=== PATIENT | female | born 1945 | race Caucasian/White ===

== ENCOUNTER 2016-07-22 08:10 | Inpatient (IN) | payer MEDICARE, OTHER ==
[~2016-07-22] VITALS: Ht 157.5 cm; Wt 72.7 kg
[~2016-07-22 08:10] MED LIST: NOMED
[2016-07-22 08:16] VITALS: BP 175/86; PULSE 90; RESP 16; O2SAT 99
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
[2016-07-22 09:46] LABS: BASOPHILS % (AUTO) 0.4 % (0-3); EOSINOPHILS % (AUTO) 0.4 % (0-5); MONOCYTES % (AUTO) 5.4 % (4-12); Mean Corpuscular Hemoglobin 32.5 pg (27.0-35.0); Mean Corpuscular Volume 98.6 fL (81-100); Platelet Count 219 bil/L (150-400)
[2016-07-22 11:53] VITALS: BP 148/77; PULSE 84; RESP 14; O2SAT 99
[2016-07-22] MEDS ORDERED: BENZ-12 PO (12:07)
[2016-07-22] MEDS ORDERED: ACET-2605 PO (12:07)
[2016-07-22] MEDS ORDERED: IPRA0.2S51 IH (12:07)
[2016-07-22] MEDS ORDERED: PRAV20TA2 PO (12:07)
[2016-07-22] MEDS ORDERED: BECL8.7A5 INHALATION (12:07)
[2016-07-22] MEDS ORDERED: FLUO20CA25 PO (12:07)
[2016-07-22] MEDS ORDERED: CHOL200047 PO (12:07)
[2016-07-22] MEDS ORDERED: MELA5TAB14 PO (12:07)
[2016-07-22] MEDS ORDERED: LISI-571 PO (12:07)
[2016-07-22] MEDS ORDERED: ALBU2.5V4 INHALATION (12:07)
[2016-07-22] MEDS ORDERED: LAMO200T2 PO (12:07)
[2016-07-22] MEDS ORDERED: LORA0.5T PO (12:08)
[2016-07-22] MEDS ORDERED: Magnesium Hydroxide 10 mL Oral Concentration PO PRN (13:40)
[2016-07-22] MEDS ORDERED: Alum-Mag Hydrox-Simeth 30 mL Suspension PO PRN (13:40)
[2016-07-22] MEDS: LORazepam 0.5 mg Tablet PO PRN (15:28)
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
[2016-07-22] MEDS ORDERED: Ipratropium 0.02% 0.5 mg/2.5 mL Inhalation Solution NEB PRN (18:30)
[2016-07-22] MEDS: diphenhydrAMINE 25 mg Capsule PO SCH (20:54)
[2016-07-23] MEDS: hydrOXYzine Pamoate 25 mg Capsule PO PRN ×2 (00:53→21:09)
[2016-07-23] MEDS: diphenhydrAMINE 25 mg Capsule PO PRN ×2 (02:42→03:56)
--- NOTE | 2016-07-23 03:21 | NUR ---
Nursing Noc Pt up and and wandering this Noc appeared to have difficulty finding her room. Facial expression with strained anxious appearance. Accepted PRN for sleep after ambulating around unit checking doors reporting it was time to go. After much rediretion patient finally noted to fall asleep. Continuing to monitor sleep times, q15 minute safety checks, mood, behavior, emotional state. CP
--- NOTE | 2016-07-23 05:33 | NUR ---
Pt isolated to room much of evening. She did come out later in the night trying to leave/find her room. Very confused and not oriented to place or time. At one point said she was looking for the guys that were going to take her into the [place]. Pt slept little being up and down through the night. Pt observed every 15 minutes as ordered.
[2016-07-23] MEDS: lamoTRIgine 100 mg Tablet PO SCH (09:08)
[2016-07-23] MEDS ORDERED: Magnesium Hydroxide 10 mL Oral Concentration PO PRN ×2 (13:35)
[2016-07-23] MEDS ORDERED: Alum-Mag Hydrox-Simeth 30 mL Suspension PO PRN (13:35)
[2016-07-23] MEDS ORDERED: LORazepam 0.5 mg Tablet PO PRN (13:40)
[2016-07-23] MEDS ORDERED: _Albuterol 2.5 mg/3 mL Neb NEB PRN (13:40)
--- NOTE | 2016-07-23 14:25 | HP ---
[address] [address] HISTORY AND PHYSICAL PATIENT: REBECCA EDWARDS : 1945 MR#: [id number] ADMIT: 07/22/2016 JOB ID: [id number] IDENTIFICATION: The patient is a 71-year-old white female, currently to Nate. 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 REASON FOR ADMISSION: Client brought to the [facility] after found her in a car trying to stab herself with a suicide attempt. HISTORY OF PRESENT ILLNESS: The patient presents for evaluation and treatment of suicidal ideation. I met with her for a 60-minute evaluation and reviewed course and records kept by [facility], especially a history done by nurse practitioner Haven Cabezas in 2007, as well as chart notes by Dr. Agustin, who is her primary care physician at [facility]. Her main issue is depression. Co-occurring issues are cognitive delay and poor coping. Her depression is chronic and she has been struggling with this for over 40 years. However, her stated that she had been relatively well managed until after when he had health problems. He had to be flown to [facility] and ever since then he said she has had a downhill spiral with multiple symptoms of depression; poor sleep, mood, interest, high guilt, and now an obsessive self deprecation and focus on and dying. She is focused on some infidelities that happened almost four decades ago. The suicidal ideation is acute and it has only been present for the past four days and is currently at a severe intensity. All the above are made worse with changes in her environment or when she gets ill. She states she has been taking her medication, Prozac, regularly and this is at 40 mg a day. She was a poor historian primarily due to severe emotional liability, marked cognitive deficits, and a severe impairment in judgment and coping. She is unable to participate in any meaningful manner in a psychiatric review of systems or physical review of systems. She could basically just shake her head and state that "I wish I was not on this earth. I wish I could just ." When referring to the suicide attempt by knife, she said "I just did not stick it in deep enough." PAST HISTORY: MEDICATIONS: 1. Prozac 40 daily, unknown duration of trial. 2. Albuterol. 3. Lisinopril 5 daily. 4. Ativan 0.5 b.i.d. 5. Melatonin 5 mg h.s. 6. 200 daily. 7. Pravastatin 20 daily. ALLERGIES: SULFA. ILLNESSES: Osteoarthritis, asthma, COPD. FAMILY MEDICAL HISTORY: The family has a history positive for disease, osteoarthritis, kidney dysfunction, and hyperlipidemia. PAST PSYCHIATRIC HISTORY: The client was admitted and diagnosed with bipolar disease in 2007. Prior to that had been diagnosed with major depressive disorders. In the chart note there are references to psychiatric hospitalizations in the s and again in 1989 at [facility]. She had a manic episode at the hospital there and was transferred to the psych decker. At that point, she decompensated with auditory hallucinations and features of depression with catatonia. She retrieved treatment at [facility]. She was treated for 10 years in the past and has used lithium, Zoloft, Anafranil, Prozac, and Stelazine. Her kidney function is compromised and she no longer can take lithium. In the past she has been a good historian. At the present she is a very poor historian and unable to participate my evaluation. They also suffered the recent loss of their 40-year-old son, who from metastatic cancer. SOCIAL HISTORY: Client and her for 41 years. They live on [address]. The patient grew up in [place], [place]. She reports good academia throughout elementary School. Ages [age] were notable for early-onset anxiety. She describes herself as a loner who socialized very little. She experienced early onset depression at 18. She completed K through 12. 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 She was able to develop satisfying relationships with partners. DRUG AND ALCOHOL: Client denies. LETHALITY: Positive suicidal ideation with recent suicide attempt. RELATIONSHIP HISTORY: 41 years. LEGAL HISTORY: None. PHYSICAL EXAMINATION: Reviewed and essentially normal from our ER. Vital signs 148/77, pulse 100, respirations 14, afebrile. Neuro: Normal gait. Balance steady. MENTAL STATUS EXAMINATION: Client neatly dressed, with good eye contact. Her behavior was restless. Her attitude was guarded and withholding. Mood was extremely dysphoric. Affect was congruent with high intensity. Thought process: Client is unable to relate a coherent history. She did not appear to be responding to internal stimuli but was highly perseverative in her focus on self-deprecation and the need for atonement. Thought content: Ruminating on infidelities of 40 years ago. Currently has suicidal ideation but no specific plan. The client is only oriented to person and place. Memory was short, immediate, and impaired. Attention and concentration was impaired. Insight and judgment markedly impaired. Impulse control: Client is unable to handle impulses of guilt. Reality testing is impaired. Competence to handle current stressors is currently being overwhelmed. LABORATORY DATA: UDS negative. Liver, electrolytes, and thyroid normal except for creatinine of 2.2; this is a longstanding issue. CBC normal. IMPRESSION: The patient is a 71-year-old white female with an over 40-year history of depression. Over the past month she has had several stressors relating to the illness of her who is her primary support and caregiver. As a result, she has had a relatively steady decline with increased depression culminating in suicidal ideation, recent suicide attempt, and cognitive impairment. She currently was only on Prozac. She is having multiple symptoms of depression related to mood, sleep, interest, guilt, energy, concentration, anhedonia, and now suicidal ideation. Client was only minimally able to participate in my evaluation today. Much of my information has come from a chart review. DIAGNOSIS: [place] I: 1. Major depressive disorder, severe, with psychosis. 2. Rule out bipolar one disorder, depressed with psychotic features. 3. Rule out dementia. [place] II: Deferred. [place] III: Osteoarthritis, asthma, chronic obstructive pulmonary disease. [place] IV: Moderate. [place] V: Global Assessment of Functioning equal to 30. PLAN: Recommend client be admitted to our unit and be provided with a high degree of safety through the structure and active adult engagement she receives here. Will have her participate in one-to-one unit and group activities focused on improving coping skills and coming up with a safety plan should suicidal ideation return as an outpatient. We will have client continue on Prozac 40 mg daily and melatonin 5 mg h.s. Will also continue Lamictal at :00 daily. Anticipate a 5-7 day stay.
[2016-07-23 14:26] VITALS: BP 118/76; PULSE 110; RESP 16
[2016-07-23] MEDS: LORazepam 0.5 mg Tablet PO PRN (15:07)
[2016-07-23] MEDS ORDERED: Ipratropium 0.02% 0.5 mg/2.5 mL Inhalation Solution NEB SCH (16:30)
--- NOTE | 2016-07-23 17:51 | NUR ---
Fall Patient in dining room @ 1656 fell to the ground, hitting her head on the wall below the window. Patient said, "the chair moved". No redness/abrasion found. Patient denied other injuries or pain. Patient escorted back to her room and nearly tripped on bed corner and as she walked around the bed, almost tripped on the other bed corner. Patient too dysfunctional since admission to follow directions. Dr Campa/Lola notified. Patient moved so the sitter can watch patients in both rooms (230/231).
--- NOTE | 2016-07-23 17:51 | NUR ---
Nursing Notes [id number] S: O: Very little verbalization from patient, even with prompting-patient will look through you and attempt to walk away. Patient isolating in room most of day. Patient appears tense and stiff. No interaction with peers noted. Patient refused breakfast and lunch today, intake consisted of 2-3 cups of juice. Patient hesitant to take medications, will take with persistence. Speech is clear but minimal. A: Flat affect, appears stiff and almost frozen at times. P: Monitor for safety and response to treatment. Follow plan of care. Follow Addendum: 07/23/16 at 175 by EUGENIA MCKINLEY RN PRNS Ativan 0.5 mg po at 1500 for anxiety-pt unable to rate. Effective, patient appears less anxious. Addendum: 07/23/16 at 1751 by EUGENIA MCKINLEY RN Note: Spouse came to visit this evening. Reported that he was in the hospital in [place] for 3 days earlier this month. Soon after returning home, Roma's nurse practitioner let Roma increase use of her inhalers (for her COPD). Within a couple of days-patients decompensation became more and more apparent. feels his hospitalization or the increase of inhaler use may be contributors to her decompensation. He is unable to think of any other changes. Reports Roma has a very strong extended family support system.
--- NOTE | 2016-07-23 19:49 | NUR ---
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 I'm an alcoholic and a drug user! I lie about everything. I am confused..." O.: met with pt. to complete Psychosocial and Treatment plan and goals. She is vol. She was hospitalized here before in 2007. She is not connected with mental health services at this time. She agreed to go to a private room for a conversation but instead she went to her room and asked story writer to come there. She described her mood as "confused". She said that she felt "manic-depressive". She told story writer that she was a lyer because of "manic-depressive." She had a hard time answering questions. She denied SI/HI, denied depression, denied AH/VH. 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 "I'm waiting for people to come and take me somewhere..." She was in and out of her room but mostly sitting alone and not talking to peers or staff. A.: pt. is isolative, cooperative, confused, paranoid and delusional, looks internally preoccupied. She has an intense stare, flat affect and latent response. P.: monitor behavior, provide safety in the unit, monitor meds intake; follow care plan.
[2016-07-23] MEDS: diphenhydrAMINE 25 mg Capsule PO SCH (21:09)
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
--- NOTE | 2016-07-24 04:29 | NUR ---
Nursing Noc Pt appears confused with poor insight. Responses noted to staff members when no question asked and blanket type responses noted when asked a question. Patient is directable but appears to forget what was asked of her almost instantly. Appears to become anxious by black haired people. Light on in room during sleep which appears to help with patient confusion and anxiety. Continue to monitor with sitter outside of room, mood, behavior, emotional state and sleep times. CP.
[2016-07-24] MEDS: lamoTRIgine 100 mg Tablet PO SCH (08:24)
[2016-07-24] MEDS: hydrOXYzine Pamoate 25 mg Capsule PO PRN (09:17)
--- NOTE | 2016-07-24 12:02 | NUR ---
DAYS 7-7 S/O- Patient appears withdrawn with flat effect, does not answer questions, but reads out loud form group handout of today repeatedly. Reported ground level fall today in hallway with nurse and aid. Patient at time looks frightened and wary of staff and other patients. A- Patient put in wheelchair for ambulation, no injury in fall, 1:1 sitter due to falls risk. Calm, clear directions, try to reduce anxiety. Patient informed that will visit today. P- Provide safe environment, falls risk, possible change in medications, follow care plan. Addendum: 07/24/16 at 1728 by NEGRITA MULLINS RN VOIDING P-Patient to nurse and staff knowledge has not voided today. 07/22 Cr 2.2, BUN 30. I- Patient changed new pull up applied, patient was dry. E- If patient has voided she has not voided much today, will pass along information to next shift, and monitor.
[2016-07-24] MEDS: risperiDONE 1 mg Tablet PO SCH ×2 (12:40→21:19)
--- NOTE | 2016-07-24 12:41 | PCM.PNPSY ---
Subjective Date of Service Jul 24, 2016 Subjective I spent 30 minutes both reviewing treatment plan and providing supportive/ educational psychotherapy. I spent less than 50% of the time counseling the patient as Roma was highly agitated and non-communicative today. Roma not responding to my questions about thought organization and mood stability. Staff reports that she has been extremely fearful, pacing the unit checking doors to see if they will open, talking about things that happened 40 in 50 years ago in a self-deprecatory manner. She has not been able to participate well in one-to-one unit for group activities. She slept 1.5 hours. She denies medication side effects. Patient was not able to identify her medications nor what they were used to treat. She did not appear to understand the need for medications . Current Medications Current Medications Acetaminophen 325 mg HS PO Last administered on 07/23/16 21:09; Admin Dose 325 MG; Start 07/22/16 at 21:00 Cholecalciferol 2,000 unit DAILY PO Last administered on 07/24/16 08:25; Admin Dose 2,000 UNIT; Start 07/23/16 at 08:30 Diphenhydramine HCl 25 mg HS PO Last administered on 07/23/16 21:09; Admin Dose 25 MG; Start 07/22/16 at 21:00 Fluoxetine HCl 40 mg DAILY PO Last administered on 07/24/16 08:24; Admin Dose 40 MG; Start 07/23/16 at 08:30 Hydroxyzine Pamoate 50 mg Q4H PRN PO Last administered on 07/24/16 09:17; Admin Dose 50 MG; Start 07/22/16 at 13:40 Lamotrigine 200 mg DAILY PO Last administered on 07/24/16 08:24; Admin Dose 200 MG; Start 07/23/16 at 08:30 Lisinopril 5 mg HS PO Last administered on 07/23/16 21:09; Admin Dose 5 MG; Start 07/22/16 at 21:00 Lorazepam 0.5 mg Q4H PRN PO Last administered on 07/23/16 15:07; Admin Dose 0.5 MG; Start 07/22/16 at 13:45 Melatonin 5 mg HS PO Last administered on 07/23/16 21:09; Admin Dose 5 MG; Start 07/22/16 at 21:00 Pravastatin Sodium 20 mg HS PO Last administered on 07/23/16t 21:09; Admin Dose 20 MG; Start 07/22/16 at 21:00 Mental Status Exam Appearance: Unkept Attitude: Guarded Behavior: Overtly anxious, Distractible Affect: Restricted, Flat Mood: Dysthymic, Anxious, Fearful Thought Process/Associations: Circumstantial Speech Production: Muter Thought Content: Negativistic, Perseveration Danger to Self/Suicidal Ideati: Passive Danger to Others: None Delusions: Paranoid (Endorses) Consciousness: Hyper-vigilant Orientation: Unable to assess Memory: Untestable Attention/Concentration & Cogn: Unable to assess Insight: Limited Judgement: Limited Result Diagram: 07/22/1693107/22/16931 Mental Health Plan The patient is a 71-year-old white female with an over 40-year history of depression. Over the past month she has had several stressors relating to the illness of her who is her primary support and caregiver. As a result, she has had a relatively steady decline with increased depression culminating in suicidal ideation, recent suicide attempt, and cognitive impairment. She currently was only on Prozac. She is having multiple symptoms of depression related to mood, sleep, interest, guilt, energy, concentration, anhedonia, and now suicidal ideation. Client was again only minimally able to participate in my evaluation. Much of my information has come from a chart review. Today client showed more symptoms of psychosis and catatonia. Will decrease Prozac and add low-dose Risperdal and Klonopin in hopes Of stabilizing mood and decreasing delusional thought. I do not believe patient is a good tess voluntary. I am ordering a [facility] Evaluation for potential court ordered treatment. [place] I: 1. Major depressive disorder, severe, with psychosis. 2. Rule out bipolar one disorder, depressed with psychotic features. 3. Rule out dementia. [place] II: Deferred. [place] III: Osteoarthritis, asthma, chronic obstructive pulmonary disease. [place] IV: Moderate. [place] V: Global Assessment of Functioning equal to 30. Medications Program Treatments Patient is being provided with a high degree of safety through the structure and active adult engagement. We will focus on developing improved coping skills and identifying stressors that may have led to current episode. We will attempt to: Integrate into therapeutic groups, milieu and individual therapy. Maintain in a closely monitored and structured unit Provide low-stimulation environment Obtain collateral data to assist in treatment planning Assess degree of lability of affect and impulse control Complete safety plan Decrease frequency of relapse and need for re-hospitalization Denies thoughts of harm to self and/or others Establish a consistent sleep pattern Medication effective in stabilization of mood and/or thought process Reduce the risk of imminent harm to self and/or others by providing a safe environment Tolerates medication without side effects Patient will be on the following psychiatric medications: Decrease Prozac to 30 mg daily Add Risperdal 0.5 mg twice a day Add Klonopin 0.25 mg twice a day and 1 mg at bedtime Address patient's legal status Patient is currently voluntary but I do not believe she is a good tess voluntary. She is attempting To check doors and reports to me that she does not want to be here. I am requesting a state [facility] by mouth valve for potential involuntary nursing home Disposition: Anticipate another 5-7 days to stabilize Peter Campa MD Jul 24, 2016 12:40
[2016-07-24 17:15] VITALS: BP 78/52; PULSE 101; RESP 16
--- NOTE | 2016-07-24 17:31 | NUR ---
Trouble Shooter./ c.m. S./O.: pt. couldn't participate in a conversation. She was difficult to redirect. DCR was called and pt. was detained today as GD and DTO. She is on 72 hrs hold right now. Section Crew[employer] Activities Clerk met with pt.'s who was very concerned about his 's mental state. was glad that pt. had been detained. said that he would come to court to testify if it is needed. He said that she was able to visit with him for a very short time only and that was very unusual for her. He was concerned about her ability to process things. A.: pt. is confused, unpredictable, disorganized. is very supportive. P.: monitor behavior, provide safety in the unit, encourage pt. to take meds; follow care plan.
--- NOTE | 2016-07-24 18:14 | NUR ---
Obs Dayshift Pt is extremely confused, little to no talking, responding or engaging w/ anyone. Pt has a hard time answering questions if she answers at all. Pt spent much time today in the milieu sitting in a wheelchair. Pt is eating and drinking well, but no out put. Pt has a 1:1, needs cueing for all basic needs. Pt visited today, appeared to be a good visit, little engagement. Calm, blank stares, latent, not tracking, confused, calm. Ok meals, Ok ADL's - needs staff assistance for everything.
[2016-07-24] MEDS: diphenhydrAMINE 25 mg Capsule PO SCH (21:20)
--- NOTE | 2016-07-25 06:46 | NUR ---
Nursing 7p-7a Pt needing 1:1 observation for recent history of falls and impulsive/aggressive behavior towards others. She continues with a blank vacant stare with and no verbal communication. Took her scheduled medication without difficulty. She has remained in direct line of sight of staff. Sleep improved tonight. She has remained asleep since 2344 with no noted distress or awakening through the night. Total sleep over 7 hours.
[2016-07-25] MEDS: lamoTRIgine 100 mg Tablet PO SCH (08:22)
[2016-07-25] MEDS: risperiDONE 1 mg Tablet PO SCH (08:23)
[2016-07-25 08:25] VITALS: BP 97/54; PULSE 96; RESP 16
[2016-07-25 10:21] VITALS: BP 97/54; PULSE 96; RESP 16
--- NOTE | 2016-07-25 12:27 | NUR ---
Mood and activity Pt. appeared very depressed and passive. When she was asked if she was suicidal, she gave a long pause and silence. She then stated in a soft slow voice and downcast eyes, "I'm not thinking about that right now." She was oriented to place, time, and person. Pt. had falls during the weekend. Encouraged physical activity to strengthen LE muscles to prevent future falls. A FWW was delivered to room. Pt. was able to use the FWW to walk to bathroom and dinning room with SBA.
--- NOTE | 2016-07-25 14:32 | NUR ---
Nursing: At 1300, Roma was sitting on a chair at the table eating lunch. She was alert and responsive. Pt talked with commercial real estate underwriter about not eating much because she was not hungry. At 1305, commercial real estate underwriter had just turned to speak with another patient when a "thud' noise was heard. Pt was observed to be on the floor in a partially lying, partially sitting position. Pt denied hitting her head but did rub it on right side and stated "I have a hard head". Pt is wearing non-skid perez socks. No complaints of pain or injury. Assessment: At 1306, pt is alert, able to follow directions. Was assisted to stand and transfer to /. At 1310, vitals signs: BP 73/43, 36.5 - 93 - 16. Pt was assisted to lie in bed following fall. Dr. Crain notified at 1325 pm. An hour later, pt is still resting quietly. Addendum: 07/25/16 at 1718 by GREG SALAS RN Repeat BP in the late afternoon, BP 99/59 and HR 85. Pt. explained she slipped off the dining chair as she bend forward and downward to fix her socks. She denied syncope or fainting before and after the fall. Discussed about fall prevention measures with pt. Reminded pt. to also ask staff for assistance. Bed alarm is on while pt. is in bed. Addendum: 07/25/16 at 1852 by YAEL HALL RN At time of fall, pt's scalp was assessed for any enlarged area when it might have hit floor. No area were tender or with palpable enlarged areas. Pupils checked and they were equal and reactive to light. No further complaints. BP systolic was in 90's later in shift. visited and was attentive.
--- NOTE | 2016-07-25 15:28 | NUR ---
Obs Dayshift Pt is able to form some sentences today, better than yesterday. Still very slow, latent, quiet, confused. Pt conts to have a blank stare at times. Pt not able to do things with out staff assistance or direction. Better eye contact. Poor ADL's, Ok meals 50%+
[2016-07-25 16:30] VITALS: BP 99/59; PULSE 85
--- NOTE | 2016-07-25 17:04 | NUR ---
Hose Turner./ c.m. S.:"I'm depressed..." O.: met with pt. and MD together in pt.'s room. She was in bed. She has 1:1 for safety due to fall risk. She denied HI. SI - "I thought about it 2 days ago." She said that she had AH/VH "last night". She rated depression at 7/10 and anxiety at 8-9/10. She was able to communicate with MD more clear than yesterday but her responses were very slow. She was able to talk about her meds. A.: pt. is isolative, cooperative, latent, has a flat affect. P.: monitor behavior, provide safety in the unit, follow care plan.
--- NOTE | 2016-07-25 20:00 | PCM.PNPSY ---
Subjective Date of Service Jul 25, 2016 Subjective The patient appeared somewhat confused about her medications and treatment and reported that her outpatient provider had cut back her medications and she was concerned about changing any of her medications. She later stated that she was taking lamotrigine 200 mg daily. Since starting clonazepam and risperidone the patient has been more talkative and alert but is also demonstrated hypotension with systolic blood pressure in the 70s with dizziness. She is oriented to July [address] [facility]. Sleep: 6.5+ hours Appetite: "Not so hot." Suicidal and homicidal ideation: Denies current suicidal ideation the last being a few days ago. Last homicidal ideation was last week and a particular target. Auditory hallucinations/Visual hallucinations: The patient reported no auditory or visual hallucinations but stated "I dreamt a whole lot of our family was in the hospital and they chopped my little nephew up." Other Psychotic Symptoms: Aria speech only Anxiety: 8-03/19 Depression: 01/16 Current Medications Current Medications Clonazepam 0.25 mg BID PO Last administered on 07/24/16 12:40; Admin Dose 0.25 MG; Start 07/24/16 at 12:30; Stop 07/24/16 at 20:28; Status DC Clonazepam 0.5 mg 12,16 PO Last administered on 07/25/16 12:20; Admin Dose 0.5 MG; Start 07/25/16 at 12:00; Stop 07/25/16 at 14:55; Status DC Clonazepam 1 mg HS PO Last administered on 07/24/16 21:21; Admin Dose 1 MG; Start 07/24/16 at 21:00; Stop 07/25/16 at 14:51; Status DC Fluoxetine HCl 30 mg DAILY PO Last administered on 07/25/16 08:21; Admin Dose 30 MG; Start 07/25/16 at 08:30; Stop 07/25/16 at 14:51; Status DC Risperidone 0.5 mg BID PO Last administered on 07/25/16 08:23; Admin Dose 0.5 MG; Start 07/24/16 at 12:30; Stop 07/25/16 at 14:51; Status DC Mental Status Exam Vital Signs Vital Signs Date Time Temp Pulse Resp B/P Pulse Ox O2 Delivery O2 Flow Rate FiO2 07/25/16 16:30 85 99/59 Appearance: Unkept Attitude: Guarded Behavior: Overtly anxious, Distractible Affect: Flat Mood: Dysthymic, Anxious, Fearful Thought Process/Associations: Circumstantial Speech Production: Paucity Speech Rate: Lags/Latency Speech Articulation: Other (soft) Thought Content: Negativistic, Perseveration Danger to Self/Suicidal Ideati: None Danger to Others: None Delusions: Paranoid Hallucinations: Auditory (Denies), Visual (Denies) Consciousness: Hyper-vigilant Orientation: Person, Place, Date, Situation Memory: Untestable Estimate Intellectual Function: Average Attention/Concentration & Cogn: Impaired Insight: Limited Judgement: Limited Result Diagram: 07/22/1632 07/22/16931 Mental Health Plan The patient is a 71-year-old white female with an over 40-year history of depression. Over the past month she has had several stressors relating to the illness of her who is her primary support and caregiver. As a result, she has had a relatively steady decline with increased depression culminating in suicidal ideation, recent suicide attempt, and cognitive impairment. She currently was only on Prozac. She is having multiple symptoms of depression related to mood, sleep, interest, guilt, energy, concentration, anhedonia, and now suicidal ideation. Client was again only minimally able to participate in the initial evaluation with much of the information coming from chart review. The patient is more talkative today but has exhibited orthostatic hypotension. The likely culprit is risperidone although clonazepam could also contribute. At the present time she is denying any psychotic symptoms and so will discontinue risperidone, moved clonazepam to twice daily and lower the dose, increase fluoxetine, and watch for symptoms. [place] Am[place] I: 1. Major depressive disorder, severe, with psychosis. 2. Rule out bipolar one disorder, depressed with psychotic features. 3. Rule out cognitive disorder unspecified. [place] II: Deferred. [place] III: Osteoarthritis, asthma, chronic obstructive pulmonary disease. [place] IV: Moderate. [place] V: Global Assessment of Functioning equal to 30. Medications Fluoxetine 30 mg daily Risperidone 0.5 mg twice daily Lamotrigine 200 mg daily Melatonin 5 mg nightly Clonazepam 1 mg nightly Treatments 1. The patient is encouraged to participate with group and milieu therapy. 2. The patient is encouraged to continue medications as prescribed. 3. The patient will meet with the treatment team on a daily basis to assess symptoms, side effects, and response to treatment. 4. The patient will continue to have a one-to-one with her episodically due to her increased risk for fall. 5. Risperidone will be discontinued due to orthostasis. 6. Clonazepam will be switched to 0.5 mg twice daily. 7. Fluoxetine will be increased to 40 mg daily. 8. Other medications will be continued as prescribed. Emerson Crain MD Jul 25, 2016 20:00
[2016-07-25] MEDS: diphenhydrAMINE 25 mg Capsule PO SCH (20:31)
--- NOTE | 2016-07-25 21:24 | NUR ---
nursing note 3-11pm S)" Can I go to bed now?" O) pt up in dinning room for dinner and visit with , watched TV for awhile before bed, took medications as ordered, used BR with stand by assist A) compliant, took medications, quiet and withdrawn P) monitor effectiveness of medications and encourage participation in treatment
--- NOTE | 2016-07-26 02:17 | NUR ---
Observations 1900 to 0700 Pt was observed by a one to one all shift. Pt first appeared asleep at 21:45 and was observed by a one to one as directed.
[2016-07-26 06:05] VITALS: BP 102/56; PULSE 95; RESP 16
[2016-07-26 06:35] VITALS: BP 102/56; PULSE 95; RESP 16
--- NOTE | 2016-07-26 06:36 | NUR ---
Observations 2300 to 0700 Pt had tag writer as 1:1 throughout the shift. Pt sleep well through the night and awoke about 0515. Pt was able to walk to bathroom and stated that she didnt need help. Industrial Truck Driver stood close to her due to previous falls and unsteady gait. Pt was much steadier on her feet than previous days on the unit. Pt had pretty steady gait this morning and walked out to D.R. to get some coffee with stand by assist. Pt speech was improved and was able to request and state what she wanted clearly. Pt is currently sitting on her bed.
--- NOTE | 2016-07-26 07:08 | NUR ---
Nursing Note NOC Patient slept from [id number], 8.25 hours. BP reported yesterday at 74/54, 99/59. This morning BP 102/57. Pt in dayroom having coffee. Has sitter staff for safety. No PRNs. Blunted affect. Answers staff minimally.
[2016-07-26] MEDS: lamoTRIgine 100 mg Tablet PO SCH (08:48)
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
[2016-07-26] MEDS: LORazepam 0.5 mg Tablet PO PRN (13:09)
[2016-07-26] MEDS: hydrOXYzine Pamoate 25 mg Capsule PO PRN (13:09)
[2016-07-26 13:35] VITALS: BP 100/62; PULSE 92; RESP 16
--- NOTE | 2016-07-26 15:15 | NUR ---
Nursing Note [id number] S: "I don't like for you to come waiting on me". O: Patient participating in groups, cooperative with staff, slightly more verbalization today, continues to be hesitant before taking medications, still does not follow directions well (tip the medication cup into your mouth-don't pour them in your hand. Unsteady on feet, two falls. Continues to have 1:1sitter. A: Affect flat, some irritability today. P: Monitor for safety and response to treatment. Follow plan of care.
[2016-07-26] MEDS: diphenhydrAMINE 25 mg Capsule PO SCH (20:26)
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
--- NOTE | 2016-07-26 22:52 | NUR ---
Nursing Note Ivana Pt being observed for safety by 1:1 r/t fall risks. Pt spent most of shift in room and was compliant with HS meds. Lisinopril held r/t BP 90/58. Pt cooperative and polite with staff. 1:1 currently outside of Pt room, WCTM sleep, safety, behavior
--- NOTE | 2016-07-27 02:39 | NUR ---
Observations 1900 to 0700 Pt's visited last night. Pt was observed by a one to one all shift. Pt first appeared asleep at 20:45 and was observed by a one to one as directed.
--- NOTE | 2016-07-27 06:53 | NUR ---
Sleep 11p-7a 1:1 sitter for falls risk. Good sleep through the night with over 9.5 hours.
[2016-07-27] MEDS: lamoTRIgine 100 mg Tablet PO SCH (08:55)
[2016-07-27 10:32] VITALS: BP 118/73; PULSE 104
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
--- NOTE | 2016-07-27 18:10 | NUR ---
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 She reports thoughts of hurting herself at times but contracts for safety. She denies H/I. She reports hearing voices. She denies visual hallucinations. Depression is "high"/10 and anxiety is 8/10. A: Patient is cooperative, guarded, anxious, flat affect, depressed, fearful, limited insight, poor judgment. P: Follow care plan coordinate out-patient providers.
[2016-07-27] MEDS: diphenhydrAMINE 25 mg Capsule PO SCH (20:27)
--- NOTE | 2016-07-27 21:09 | PCM.PNPSY ---
Subjective Date of Service Jul 27, 2016 Subjective The patient has her belongings packed on her bed and states that she does not belong in the hospital and should suffer instead. She is not as adamant today about needing to go to half-way. She is tolerating the cross taper from risperidone to quetiapine. Although she reports that she had thought about going over a radhika she does not drive. Sleep: 9.5+ hours hours Appetite: Reduced Suicidal and homicidal ideation: Regarding suicidal ideation, states that she should be punished but denies intent. She denies homicidal ideation Auditory hallucinations: Endorses hearing the voice of relatives and people from worship. Visual hallucinations: Denies. Other Psychotic Symptoms: Pathological guilt Anxiety: Endorses Depression: Endorses Current Medications Current Medications Fluoxetine HCl 40 mg DAILY PO Last administered on 07/27/16 08:55; Admin Dose 40 MG; Start 07/26/16 at 08:30 Quetiapine Fumarate 25 mg BID PO Last administered on 07/27/16 20:27; Admin Dose 25 MG; Start 07/26/16 at 20:30 Mental Status Exam Appearance: Neat/well groomed Attitude: Guarded Behavior: Overtly anxious, Distractible Affect: Flat Mood: Depressed, Anxious, Fearful Thought Process/Associations: Goal Directed Speech Production: Paucity Speech Rate: Lags/Latency Speech Articulation: Other (soft) Thought Content: Negativistic, Perseveration Danger to Self/Suicidal Ideati: Active, Plan (as above), Intent (denies while in hospital) Danger to Others: None Delusions: Paranoid Hallucinations: Auditory (Denies), Visual (Denies) Consciousness: Hyper-vigilant Orientation: Person, Place, Date, Situation Memory: Grossly Intact (but difficult to assess) Estimate Intellectual Function: Average Attention/Concentration & Cogn: Impaired Insight: Limited Judgement: Limited Result Diagram: 07/22/1693107/22/16931 Mental Health Plan The patient is a 71-year-old white female with an over 40-year history of depression. Over the past month she has had several stressors relating to the illness of her who is her primary support and caregiver. As a result, she has had a relatively steady decline with increased depression culminating in suicidal ideation, recent suicide attempt, and cognitive impairment. She currently was only on Prozac. She is having multiple symptoms of depression related to mood, sleep, interest, guilt, energy, concentration, anhedonia, and now suicidal ideation. Client was again only minimally able to participate in the initial evaluation with much of the information coming from chart review. The patient is talkative with her blood pressure returned to normal. With the discontinuation of risperidone she has had the return of pathological guilt and worsening of suicidal ideation. The patient's mood appears to be somewhat improved with decreased perseveration suicidality but is endorsing the recurrence of hallucinations. She is endorsing some unsteadiness on her feet but her blood pressures returned to normal. [place] I: 1. Major depressive disorder, severe, with psychosis. 2. Rule out bipolar one disorder, depressed with psychotic features. 3. Rule out cognitive disorder unspecified. [place] II: Deferred. [place] III: Osteoarthritis, asthma, chronic obstructive pulmonary disease. [place] IV: Moderate. [place] V: Global Assessment of Functioning equal to 30. Medications Fluoxetine 40 mg daily Lamotrigine 200 mg daily Melatonin 5 mg nightly Clonazepam 0.5 mg twice daily Quetiapine 25 mg twice daily Treatments 1. The patient is encouraged to participate with group and milieu therapy. 2. The patient is encouraged to continue medications as prescribed. 3. The patient will meet with the treatment team on a daily basis to assess symptoms, side effects, and response to treatment. 4. The patient will continue to have a one-to-one with her episodically due to her increased risk for fall and suicidal ideation. 5. If patient's blood pressure remained stable and she has no further episodes of dizziness will increase quetiapine to 50 mg twice daily. 6. Continue clonazepam and fluoxetine at current doses but consider switching to venlafaxine. 7. Other medications will be continued as prescribed. Emerson Crain MD Jul 27, 2016 21:09
--- NOTE | 2016-07-28 03:36 | NUR ---
Nursing Noc in to visit during visiting hours. Couple appeared to get along without difficulty. Pt Up and down throughout the night with poor sleep. Zero change in mentation noted from previous days. Continuing to monitor with 1:1 sitter at bedside for fall risk. Monitoring mood, behavior, emotional state and sleep time. CP
--- NOTE | 2016-07-28 05:51 | NUR ---
Observations 1900 to 0700 Pt's visited last night. Pt was observed by a one to one all shift. Pt first appeared asleep at 21:15 and was observed by a one to one as directed.
[2016-07-28] MEDS: lamoTRIgine 100 mg Tablet PO SCH (08:25)
[2016-07-28 13:15] VITALS: BP 102/70; PULSE 90; RESP 16
--- NOTE | 2016-07-28 15:40 | NUR ---
Nursing Note 7a-7p At start of shift pt. was sitting on edge of her bed fully dressed with a bag full of her things sitting on her lap. When asked, she said she was leaving today and that the police were coming to take her to [facility]. I assured her police were not coming and that she not done anything wrong. This did not seem to help. She said she felt very scared and depressed. She denied any thoughts of harming herself or others. She denied hallucinations. I administered her morning medications after this conversation and she was able to take a long nap. According to maintenance mechanic 2nd shift, she had hardly slept at all last night. 1;1 sitter for falls risk.
--- NOTE | 2016-07-28 17:41 | NUR ---
Observations [id number] Pt was in bed crying upon first observation. She appears to continue to be very sad and confused at times. She was observed packing her stuff, putting on her coat and shoes and saying that she would be "leaving." Pt was able to be redirected back to her room. Pt did attend group for a short period of time when she went outside, but became too cold to remain so she went back in. Pt had a 1x1 sitter for the entire shift, due to fall risk. Pt ate 25% of breakfast, and 25% of dinner. Pt was assisted in the evening with taking a shower. She was observed every 15 minutes of shift as directed.
[2016-07-28] MEDS: diphenhydrAMINE 25 mg Capsule PO SCH (21:03)
[2016-07-28 21:59] VITALS: BP 131/79; PULSE 98; RESP 18
--- NOTE | 2016-07-28 23:39 | PCM.PNPSY ---
Subjective Date of Service Jul 28, 2016 Subjective Patient sitting on bed having packed up belongings believing that she was being discharged as she felt that she should be put out on the street. She is still perseverating on past transgressions and that he should be in [facility] or in a psychiatric hospital (long-term). Patient reports unsteady on feet for some time due to difficulties with foot degeneration. Discussed increasing quetiapine and cross-tapering to venlafaxine. No side effect complaints. Sleep: poor Appetite: "more than I should" Suicidal and homicidal ideation: SI as above. Auditory hallucinations: endorses Visual hallucinations: denies Other Psychotic Symptoms: severe guilt. Anxiety: moderate Depression: severe Current Medications Current Medications Quetiapine Fumarate 25 mg BID PO Last administered on 07/28/16t 08:25; Admin Dose 25 MG; Start 07/26/16 at 20:30; Stop 07/28/16 at 15:05; Status DC Mental Status Exam Appearance: Neat/well groomed Attitude: Guarded Behavior: Overtly anxious, Tearful, Distractible Affect: Flat Mood: Depressed, Anxious, Fearful Thought Process/Associations: Goal Directed Speech Production: Paucity Speech Rate: Lags/Latency Speech Articulation: Other (soft) Thought Content: Negativistic, Perseveration Danger to Self/Suicidal Ideati: Active, Plan (as above), Intent (denies while in hospital) Danger to Others: None Delusions: Paranoid Hallucinations: Auditory (Endorses), Visual (Denies) Consciousness: Hyper-vigilant Orientation: Person, Place, Date, Situation Memory: Grossly Intact (but difficult to assess) Estimate Intellectual Function: Average Attention/Concentration & Cogn: Impaired Insight: Limited Judgement: Limited Result Diagram: 07/22/1632 07/22/16 09 Mental Health Plan The patient is a 71-year-old white female with an over 40-year history of depression. Over the past month she has had several stressors relating to the illness of her who is her primary support and caregiver. As a result, she has had a relatively steady decline with increased depression culminating in suicidal ideation, recent suicide attempt, and cognitive impairment. She currently was only on Prozac. She is having multiple symptoms of depression related to mood, sleep, interest, guilt, energy, concentration, anhedonia, and now suicidal ideation. Client was again only minimally able to participate in the initial evaluation with much of the information coming from chart review. The patient's blood pressure has returned to normal. With the discontinuation of risperidone she has had the return of pathological guilt and worsening of suicidal ideation. The patient's mood appears to be somewhat improved with decreased perseveration suicidality but is endorsing the recurrence of hallucinations. She is endorsing some unsteadiness due to mechanical issues. We discussed further increase in quetiapine and cross-taper to venlafaxine. Patient agreeable. [place]itt[place] I: 1. Major depressive disorder, severe, with psychosis. 2. Rule out bipolar one disorder, depressed with psychotic features. 3. Rule out cognitive disorder unspecified. [place] II: Deferred. [place] III: Osteoarthritis, asthma, chronic obstructive pulmonary disease. [place] IV: Moderate. [place] V: Global Assessment of Functioning equal to 30. Medications Fluoxetine 40 mg daily Lamotrigine 200 mg daily Melatonin 5 mg nightly Clonazepam 0.5 mg twice daily Quetiapine 25 mg twice daily Treatments 1. The patient is encouraged to participate with group and milieu therapy. 2. The patient is encouraged to continue medications as prescribed. 3. The patient will meet with the treatment team on a daily basis to assess symptoms, side effects, and response to treatment. 4. The patient will continue to have a one-to-one with her episodically due to her increased risk for fall. 5. Increase quetiapine to 50 mg twice daily. 6. Add venlafaxine 37.5mg po daily and decrease fluoxetine to 30mg po daily 7. Other medications will be continued as prescribed. Emerson Crain MD Jul 28, 2016 19:32
--- NOTE | 2016-07-29 05:31 | NUR ---
Pt isolated to room much of evening. 1:1 for safety. Pt slept little being up and down through the night. Pt observed every 15 minutes as ordered.
--- NOTE | 2016-07-29 05:37 | NUR ---
Nursing Noc Pt mentation remains preoccupied with guilt, depression and delusion of need to leave. 1:1 sitter required r/t patient spontaneity in activity and high risk of falling. Reported plan to change medications today to help with mood and behavior. into visit last evening and remains hopeful that medication change will be helpful. also reports that we can call him at any time if needed for patient support. Continuing to monitor sleep times, mood, behavior, emotional state. BHCP
[2016-07-29] MEDS ORDERED: Venlafaxine XR 37.5 mg ER24 Capsule PO SCH (08:00)
[2016-07-29] MEDS: FLUoxetine 20 MG, FLUoxetine 10 MG PO SCH ×2 (09:00)
[2016-07-29] MEDS: lamoTRIgine 100 mg Tablet PO SCH (09:13)
[2016-07-29 11:15] VITALS: BP 112/65; PULSE 98; RESP 16
--- NOTE | 2016-07-29 14:54 | NUR ---
Nursing: Day shift: S: I have done bad things. I locked my kids in the house and went to the barn. I am going home. The orders are written. O: Roma has been sitting with her coat on, a bag with belongings in her hand, and repeatedly stating she needs to go. Facial expression is sad/flat. Refused shower. Has been on 1:1 observation this shift. Toilets self. Has not fallen. A: Depressed. Anxious. Delusional. P: Continue 1:1 observation. Addendum: 07/29/16 at 1517 by YAEL HALL RN Amended: Links added.
[2016-07-29] MEDS: LORazepam 0.5 mg Tablet PO PRN ×2 (16:48→21:55)
--- NOTE | 2016-07-29 19:40 | PCM.PNPSY ---
Subjective Date of Service Jul 29, 2016 Subjective Patient sitting on bed having packed up belongings believing that she was being discharged as she felt that she should be put out on the street. "I know this place is sick and tired of me." Regarding her who comes to visit, "he is too good to be to me I am nothing but a piece of trash." The patient also reported people "telling me I have VD." She further clarifies stating that Rishabh, Nasima, Rip, Dyllan, and her son are all talking to her telling her this. She is still perseverating on past transgressions and that he should be in long term or in a psychiatric hospital (long-term). Patient reports no worsening of unsteadiness of gait. Discussed increasing quetiapine and cross -tapering to venlafaxine. No side effect complaints. Sleep: 5.25+ hours Appetite: "I am eating" Suicidal and homicidal ideation: "If I had a way to do it I would" denies any way to do it in the hospital and has no intent; denies homicidal ideation. Auditory hallucinations: endorses Visual hallucinations: denies Other Psychotic Symptoms: severe guilt. Anxiety: 02/16 Depression: "I have not hit rock bottom." Current Medications Current Medications Fluoxetine HCl/ Fluoxetine HCl 30 mg DAILY PO Last administered on 07/29/16 09: 00; Admin Dose 30 MG; Start 07/29/16 at 08:30 Quetiapine Fumarate 50 mg BID PO Last administered on 07/28/16 21:03; Admin Dose 50 MG; Start 07/28/16 at 20:30 Mental Status Exam Appearance: Neat/well groomed Attitude: Guarded Behavior: Overtly anxious, Tearful, Distractible Affect: Flat Mood: Depressed, Anxious, Fearful Thought Process/Associations: Goal Directed Speech Production: Paucity Speech Rate: Lags/Latency Speech Articulation: Other (soft) Thought Content: Negativistic, Perseveration Danger to Self/Suicidal Ideati: Active, Plan (denies), Intent (denies while in hospital) Danger to Others: None Delusions: Paranoid Hallucinations: Auditory (Endorses), Visual (Denies) Consciousness: Hyper-vigilant Orientation: Person, Place, Date, Situation Memory: Grossly Intact (but difficult to assess) Estimate Intellectual Function: Average Attention/Concentration & Cogn: Impaired Insight: Limited Judgement: Limited Mental Health Plan The patient is a 71-year-old white female with an over 40-year history of depression. Over the past month she has had several stressors relating to the illness of her who is her primary support and caregiver. As a result, she has had a relatively steady decline with increased depression culminating in suicidal ideation, recent suicide attempt, and cognitive impairment. She currently was only on Prozac. She is having multiple symptoms of depression related to mood, sleep, interest, guilt, energy, concentration, anhedonia, and now suicidal ideation. The patient's blood pressure has returned to normal. With the discontinuation of risperidone she has had the return of pathological guilt and worsening of suicidal ideation. Although she appears to have some improvement with the addition of quetiapine, she is still having ongoing auditory hallucinations. She appears to be tolerating the addition of venlafaxine. She is endorsing some unsteadiness due to mechanical issues. We discussed further increase in quetiapine and venlafaxine. Patient agreeable to plan. [place] I: 1. Major depressive disorder, severe, with psychosis. 2. Rule out bipolar one disorder, depressed with psychotic features. 3. Rule out cognitive disorder unspecified. [place] II: Deferred. [place] III: Osteoarthritis, asthma, chronic obstructive pulmonary disease. [place] IV: Moderate. [place] V: Global Assessment of Functioning equal to 30. Medications Fluoxetine 30 mg daily Lamotrigine 200 mg daily Melatonin 5 mg nightly Clonazepam 0.5 mg twice daily Quetiapine 50 mg twice daily Treatments 1. The patient is encouraged to participate with group and milieu therapy. 2. The patient is encouraged to continue medications as prescribed. 3. The patient will meet with the treatment team on a daily basis to assess symptoms, side effects, and response to treatment. 4. The patient will continue to have a one-to-one with her episodically due to her increased risk for fall. 5. Increase quetiapine to 50 mg daily and 100 mg nightly. 6. Increase venlafaxine to 37.5mg twice daily and decrease fluoxetine to 20mg po daily 7. Other medications will be continued as prescribed. Emerson Crain MD Jul 29, 2016 19:40
--- NOTE | 2016-07-29 21:17 | NUR ---
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 She reports thoughts of hurting herself at times but contracts for safety. She denies H/I. She reports hearing voices. She denies visual hallucinations. Depression is "high"/10 and anxiety is 8/10. A: Patient is cooperative, guarded, anxious, flat affect, depressed, fearful, paranoid, limited insight, poor judgment. P: Follow care plan coordinate out-patient providers.
--- NOTE | 2016-07-29 21:27 | NUR ---
Observations 0900 to 0 Pt had 1:1 due to being a fall risk. Pt affect and mood was paranoid, anxious, confused and delusional. Pt speech and eye contact was poor. Pt declined to attend group and unit activities. Pt attended meals in D.R. and ate 50% of all meals. Pt was offered snack but she refused. Pt maintained behavior throughout the shift. Pt was polite, pleasant and cooperative. Pt came to visit her and it appeared to go well. Pt continues to think that something bad has happened to her son. reassured her that nothing was wrong with him. Pt was observed every 15 minutes throughout the shift as ordered. Pt is currently in his room.
[2016-07-29] MEDS: diphenhydrAMINE 25 mg Capsule PO SCH (21:55)
--- NOTE | 2016-07-30 05:20 | NUR ---
Pt isolated to room much of evening. 1:1 for safety. Pt slept some asleep at 2330 up and down some in night. noted an improvement in her mood during his visit, staff noted her speech was more oriented and positive in evening. Less so as shift went along, overall better. Pt observed every 15 minutes as ordered.
--- NOTE | 2016-07-30 06:01 | NUR ---
Nursing Note NOC Patient slept 6.5 hours plus this shift, from 2330 on. 1:1 staff assigned to patient at this time. PRN 0.5 mg Ativan given at 1648 and 2155.
[2016-07-30] MEDS: Venlafaxine XR 37.5 mg ER24 Capsule PO SCH ×2 (08:00→16:07)
[2016-07-30] MEDS: lamoTRIgine 100 mg Tablet PO SCH ×2 (08:30→16:08)
[2016-07-30] MEDS: FLUoxetine 20 MG, FLUoxetine 10 MG PO SCH ×2 (08:30)
--- NOTE | 2016-07-30 11:26 | PROG NOTE ---
[address] [address] PROGRESS NOTE PATIENT: REBECCA EDWARDS : 1945 MR#: [id number] ADMIT: 07/22/2016 JOB ID: [id number] DATE: 07/30/2016 SUBJECTIVE: A 71-year-old lady hospitalized involuntarily on this unit July 22, 2016. DIAGNOSIS: Bipolar 1, depressed. Rule out cognitive disorder, not otherwise specified, chronic. On axis III hyperlipidemia, hypertension, chronic obstructive pulmonary disease and vitamin D3 replacement. MEDICATIONS: 1. Seroquel 50 mg in the morning, 100 at night. 2. Venlafaxine 37.5 mg b.i.d. 3. Prozac 20 mg a day. 4. Clonazepam 0.5 b.i.d. 5. Melatonin 5 mg at night. 6. Lamictal 200 mg a day. Six and a half hours of sleep. Still some delusions. Still some irritability. Will 2 g Ativan p.r.n. in the evening and at night to reduce anxiety. I focused on the fact trying to explain to her the illness and the need for her being here. Stand on her reality testing. Answer her questions about the medications she was on. Encouraged her to participate in the treatment modalities of the unit. No acute pain issues. We will continue the management the way it is for now.
[2016-07-30 12:32] VITALS: BP 107/66; PULSE 84; RESP 16
--- NOTE | 2016-07-30 12:58 | NUR ---
Nursing Dayshift: S: "Yes I'd kill myself if I could figure out how to do it in here!" O: Patient irritable during conversation with this staff. "I know you all hate me." "And now you are going to pimp me out?!" Encouraged patient that all staff do in fact like her and prior to leaving she needs to talk to the doctor next week about timing. Continues to state loudly that she is leaving today. Has been out of her room occassionally with 1:1 staffing present for safety of patient. No falls today thus far. Poor appetite. Declined breakfast and ate 25% of lunch. A: Angry at times. flat and forlorn. P: CPOC. Monitor mood and behavior. Continue 1:1 staffing due to patient being a high falls risk and stating her SI being quite high. Addendum: 07/30/16 at 1306 by KAYLA BARKER RN Amended: Links added.
--- NOTE | 2016-07-30 16:19 | NUR ---
Nurses Medication Patient had refused all of her am medications. She accepted Klonopin 0.5mg,Lamictal 200mg,Effexor 37.5mg, and Prozac 20mg with apple juice. Patients' mood remains angry,her thoughts unrealistic believing everyone here on the unit hates her or that she has an odor. Patient remains on 1:1 with staff due to falls risk.Continue Care Plan.
--- NOTE | 2016-07-30 18:23 | NUR ---
Cement Tester Assistant./ c.m. S.:"I'm fine... I'm waisting your time. I'm disgusted with myself!" O.: met with pt. and MD together in pt.'s room. She was sitting in a chair fully clothed with her coat on. She had a brown bag with her belongings near her chair. She denied HI, but she admitted having SI. She didn't have a plan but she also didn't contract for safety here. She was upset about being here because she didn't deserve MD and staff attention. She said that she felt depressed but she couldn't rate it. She didn't think that meds were doing anything for her. She also didn't want to change her meds. She has 1:1 for safety. She was in and out of her room during the day caring her paper bag with her. She wanted to leave and was looking at different doors. Her came to visit her late afternoon. A.: pt. is quiet, isolative, confused, very negative about self. She has a flat affect and a short attention. P.: monitor behavior, provide safety, follow care plan.
--- NOTE | 2016-07-30 18:28 | NUR ---
Observations 0900 to 0 Pt had 1:1 throughout the shift due to being a fall risk. Pt affect and mood continued to be paranoid, anxious, confused and delusional. Pt speech and eye contact was poor. Pt declined to attend group and unit activities. Pt attended meals in D.R. Pt refused to eat breakfast and ate approximately 25% of lunch and dinner. Pt was offered snack but she refused. Pt maintained behavior throughout the shift. Pt came to visit her and it appeared to go well. Pt continues to think bad about herself and has very low self esteem. Ypu guys shouldn't have to put up with me, I stink very bad". Pt took a shower, TAXICAB DISPATCHER helped her with this. Pt continued to say that she smelt bed even after taking a shower. Pt was observed every 15 minutes throughout the shift as ordered. Pt is currently in piano room visiting with her .
[2016-07-30] MEDS: diphenhydrAMINE 25 mg Capsule PO SCH (21:03)
--- NOTE | 2016-07-30 22:44 | NUR ---
Nurses Note Evening Patient remains on 1:1 for safety due to fall risk. She has been ambulating with a walker or stand by assist. Patient remains confused, disorganized and resistive to accepting medications but has remained compliant with firm limits and encouragement. Will continue 1:1 for safety.
--- NOTE | 2016-07-31 05:47 | NUR ---
nursing, nights, 11-7 s/o- has appeared to sleep after 2200. up to the toilet at 0300 with assistance and easily returned to sleep. has one to one direct observation and assistance. assessed q 15 minutes. a- pleasant and generally appropriate. needs assistance with adl's. no apparent physical distress. p- monitor behavior/emotional state, quality, times and amount of sleep, use and effect of medication. rosaline
--- NOTE | 2016-07-31 06:21 | NUR ---
Pt isolated to room much of evening. 1:1 for safety. Pt slept some asleep at 2200. Pt was very sad and crying earlier in shift. She asked at one point right after calling her Why did they lie to me and say he slit his throat? Why did they say he killed himself. Pt observed every 15 minutes as ordered.
[2016-07-31] MEDS: FLUoxetine 20 MG, FLUoxetine 10 MG PO SCH ×4 (08:30→09:21)
[2016-07-31] MEDS: Venlafaxine XR 37.5 mg ER24 Capsule PO SCH ×3 (09:08→17:21)
[2016-07-31] MEDS: lamoTRIgine 100 mg Tablet PO SCH ×2 (09:08→10:44)
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
[2016-07-31 15:42] VITALS: BP 99/61; PULSE 96; RESP 18
--- NOTE | 2016-07-31 16:01 | NUR ---
Nursing Dayshift: S: "I'm doing fine. When do I get to leave?" O: Patient continues 1:1 for safety due to being a high falls risk. Has not eaten at breakfast or lunch today. Has drank juice and water. Encouraging PO intake at dinner. Has taken all AM meds except Vit D. Much encouragement needed for about half of them. Ambulates with a slow gait. visited this afternoon. Patient brighter during visit. Has been up out of her room more today. Minimal interaction with peers. A: More animated today. P: CPOC. Monitor mood and behavior.
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
--- NOTE | 2016-07-31 17:28 | NUR ---
Observations [id number] Pt asleep upon start of shift. Pt continues to have 1 on 1 observation due to fall risk. She continues to walk unit, searching out exits, often times with her jacket on and bag of clothes in hand. Pt is easy to re-direct, but has done this multiple times throughout the day. Pt expressed concerns regarding the well being of her , stating that he might be . Pt also talks about her body odor, even after showering and cleaning stating that no one wants to be around her because she stinks. Pt attended meals but presents with a poor appetite. Pt ate 0% of breakfast, 0% of lunch, and 50% of dinner. Her came to visit in the afternoon and evening. Pt was observed every 15 minutes as directed.
[2016-07-31] MEDS: diphenhydrAMINE 25 mg Capsule PO SCH (20:09)
--- NOTE | 2016-08-01 05:34 | NUR ---
Nursing Note NOC Patient remains with 1:1 staff for safety and fall risk. Up to use bathroom x2 NOC shift. Snores. No PRNs this shift. Continue to assess for safety.
--- NOTE | 2016-08-01 06:15 | NUR ---
Pt isolated to room much of evening. 1:1 for safety. Pt slept some asleep at 0000. Pt was very sad and crying earlier in shift. Pt observed every 15 minutes as ordered.
[2016-08-01 07:35] VITALS: BP 106/66; PULSE 86; RESP 20
--- NOTE | 2016-08-01 07:49 | NUR ---
Canceling Machine Operator./ c.m. S.:"You don't want me to be here. I have eaten up all your food in the hospital. There is no food left... I smell... it stink!" O.: met with pt. in the ram. She was trying to run and push hard double doors in order to leave. She had 1:1 sitter earlier but there was nobody around her in this time. She continued to have SI but she "couldn't figure out a plan how to kill" herself. She denied HI. She continued having strong AH that were very negative in nature. She told junior underwriter that she "smelled real bad". She took a shower yesterday but she believed that she had "a bad vagina smell." She didn't believe that taking shower today would help to eliminate the "smell". She felt "very depressed" because she was "just a waste of everybody's time and money." She had a good visit with her yesterday. She had very limited and delayed responses with occasional "comments" from her AH. She was keeping to herself and didn't interact with peers or staff. She had a hard time following a conversation. A.: pt. is isolative, confused, internally preoccupied and responding on internal stimuli. Her behavior is unpredictable. She has a poor eye contact, soft voice and latent speech. P.: monitor behavior, provide safety in the unit, monitor meds intake; follow care plan.
[2016-08-01] MEDS: FLUoxetine 20 MG, FLUoxetine 10 MG PO SCH ×2 (08:30)
[2016-08-01] MEDS: lamoTRIgine 100 mg Tablet PO SCH (08:30)
[2016-08-01] MEDS: Venlafaxine XR 37.5 mg ER24 Capsule PO SCH (09:02)
[2016-08-01] MEDS: LORazepam 0.5 mg Tablet PO PRN (11:06)
[2016-08-01 11:30] VITALS: BP 78/52
[2016-08-01 12:34] VITALS: BP 78/52; PULSE 92; RESP 18
--- NOTE | 2016-08-01 12:38 | NUR ---
Nursing: S: I know I'm a whore. Please put me out on the street. I give up. Put me in an institution already. I smell. O: Roma is full of negative, dispairing statements. Facial expression is flat/depressed. Wearing brown wool coat constantly even though the sun is beaming in the window. At 0900, pt's systolic BP was above 100. At 1143, as she was standing in the ram, she started to fall backward. VS at 1145 were 78/52 92 18 35.65. Pt encouraged to drink more fluids and did consume 240 ml of ensure at lunch. Roma has been poised in the ram eyeing the doors and has been observed attempting to leave when the door was opened to discharge a patient. observed speaking out loud "I didn't do that" when no one was around to address. Able to toilet herself. Eating very little. Has 1:1 with her as a fall risk. A: Depressed. Exit seeking. Minimal Fluid intake. Auditory hallucinations. Decreased self-worth. P: Continue 1:1 to prevent falls. Encourage fluid intake. Prevent elopement. Addendum: 08/01/16 at 1259 by YAEL HALL RN Amended: Links added. Addendum: 08/01/16 at 1953 by YAEL HALL RN Update: Roma was been visited by her . She looks brighter when he is visiting. Continued with derogatory statments about self. And her intention to leave unit. After her left at 1930, she went to sleep. P: Continue with 1:1 observation for pt safety.
--- NOTE | 2016-08-01 14:06 | PCM.PNPSY ---
Subjective Date of Service Aug 01, 2016 Subjective I spent 30 minutes both reviewing treatment plan and providing supportive/ educational psychotherapy. I spent less than 50% of the time counseling the patient. She could only tolerate brief interactions. I reviewed the treatment plan with the patient and discussed options available including the potential risks, benefits and side effects. Roma reports severe symptoms of depression including mood, poor interest, suicidal ideation, and hopelessness. She is extremely self-deprecatory in her impressions of herself and believes everybody would be better off if she were . Staff reports that she has been isolative and not participating well in one-to-one unit and group activities. She slept 5 hours . She denies medication side effects. Patient was not able to identify her medications nor what they were used to treat. Mental Status Exam Vital Signs Vital Signs Date Time Temp Pulse Resp B/P Pulse Ox O2 Delivery O2 Flow Rate FiO2 08/01/16 12:34 35.6 92 18 78/52 Appearance: Neat/well groomed Attitude: Guarded Behavior: Overtly anxious, Tearful, Distractible Affect: Flat Mood: Depressed, Anxious, Fearful Thought Process/Associations: Goal Directed Speech Production: Paucity Speech Rate: Lags/Latency Speech Articulation: Other (soft) Thought Content: Negativistic, Perseveration Danger to Self/Suicidal Ideati: Active, Plan (denies), Intent (denies while in hospital) Danger to Others: None Delusions: Paranoid Hallucinations: Auditory (Endorses), Visual (Denies) Consciousness: Hyper-vigilant Orientation: Person, Place, Date, Situation Memory: Grossly Intact (but difficult to assess) Estimate Intellectual Function: Average Attention/Concentration & Cogn: Impaired Insight: Limited Judgement: Limited Mental Health Plan The patient is a 71-year-old white female with an over 40-year history of depression. Over the past month she has had several stressors relating to the illness of her who is her primary support and caregiver. As a result, she has had a relatively steady decline with increased depression culminating in suicidal ideation, recent suicide attempt, and cognitive impairment. Since I last saw Roma she has made little progress. Her psychiatric staff Has been trying multiple different approaches including medications group therapy and individual therapy. She continues to be in a severely depressed state with suicidal ideation and self deprecatory statements. I talked with her about continuing to target symptoms with a combination of increasing Effexor fluoxetine and Seroquel. She agreed to this trial. We will also continue Lamictal melatonin and Klonopin as well. [place] I: 1. Major depressive disorder, severe, with psychosis. 2. Rule out bipolar one disorder, depressed with psychotic features. 3. Rule out cognitive disorder unspecified. [place] II: Deferred. [place] III: Osteoarthritis, asthma, chronic obstructive pulmonary disease. [place] IV: Moderate. [place] V: Global Assessment of Functioning equal to 30. Medications Fluoxetine 30 mg daily Lamotrigine 200 mg daily Melatonin 5 mg nightly Clonazepam 0.5 mg twice daily Quetiapine 50 mg every morning and 100 at bedtime Treatments 1. The patient is encouraged to participate with group and milieu therapy. 2. The patient is encouraged to continue medications as prescribed. 3. The patient will meet with the treatment team on a daily basis to assess symptoms, side effects, and response to treatment. 4. The patient will continue to have a one-to-one with her episodically due to her increased risk for fall. 5. Increase quetiapine to 50 mg daily and 100 mg nightly. 6. Increase venlafaxine to 75 mg every morning and 37.5 mg at noon 7. Decrease fluoxetine to 20mg po daily Peter Campa MD Aug 01, 2016 14:06
[2016-08-01 15:00] VITALS: BP 98/54
--- NOTE | 2016-08-01 17:45 | NUR ---
Observations [id number] Pt was asleep in bed upon start of shift. Pt walked between her room and dining room most of the morning, exit seeking and asking to leave. She made statements referring to "put me out on the street", and referenced her body odor. Pt continues to state that she feels that she is a burden to others around her. Pt ate 20% of breakfast, 0% of lunch, and 60% of dinner. Pt also did take a shower today and appeared to be somewhat more positive. Pt decorated room with cards that her gave her. Pt was observed every 15 minutes of shift as directed.
[2016-08-01] MEDS: diphenhydrAMINE 25 mg Capsule PO SCH (20:33)
--- NOTE | 2016-08-02 03:52 | NUR ---
Observations 1900 to 0700 Pt's visited last night. Pt was observed by a one to one all shift. Pt first appeared asleep at 21:30 and was observed by a one to one as directed.
--- NOTE | 2016-08-02 06:26 | NUR ---
NOC Shift Slept throughout the night off and on, only getting up to toilet several times. Fast to fall back asleep, no negative remark, cooperative with care. Sitter at entrance to room for safety r/t frequent falls.
--- NOTE | 2016-08-02 08:37 | NUR ---
Business Services Sales Representative./ marquise Zavala.:"I'm going home today..." O.: met with pt. in her room. She was sitting on a chair and holding her street coat as well as a bid neckless that she made yesterday in a group. She continued having AH and difficulty talking. She was listening to AH during this conversation and she said that "voices are mad at me". She had a good visit with her yesterday and she pointed at a row of cards above her bed. "He brought me a card." Suddenly she took her neckless and tried to put it on. She got stuck because of her glasses and couldn't figure out what to do next. Coat Agent helped her to take her glasses off and to put her neckless on. Pt. continued having 1:1 due to falls risk. She had a hard time following a conversation as well as making unrelated comments out loud. She doesn't interact with peers or staff unless she was asked a question. A.: pt. is isolative, quiet, confused, paranoid and delusional. She is internally preoccupied and responding on internal stimuli. She has a flat affect and looks unsteady on her feet. Her hands are shaking. P.: monitor behavior, provide safety in the unit, monitor meds intake; follow care plan.
[2016-08-02] MEDS: Venlafaxine XR 37.5 mg ER24 Capsule PO SCH (08:40)
[2016-08-02] MEDS: lamoTRIgine 100 mg Tablet PO SCH (08:41)
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
[2016-08-02 10:57] VITALS: BP 86/50; PULSE 90; RESP 20
--- NOTE | 2016-08-02 15:19 | PCM.PNPSY ---
Subjective Date of Service Aug 02, 2016 Subjective I spent 20 minutes both reviewing treatment plan and providing supportive/ educational psychotherapy. I spent less than 50% of the time counseling the patient. She could only tolerate brief interactions. I reviewed the treatment plan with the patient and discussed options available including the potential risks, benefits and side effects. Roma reports continued symptoms of depression including mood, poor interest, suicidal ideation, and hopelessness. She is self-deprecatory in her impressions of herself and believes everybody would be better off if she were . Staff reports that she has been isolative and not participating well in one-to-one unit and group activities. She slept 8 hours . She denies medication side effects. Patient was not able to identify her medications nor what they were used to treat. Current Medications Current Medications Fluoxetine HCl 20 mg DAILY PO Last administered on 08/02/16 08:41; Admin Dose 20 MG; Start 08/02/16 at 08:30 Venlafaxine HCl 37.5 mg DAILYWL PO Last administered on 08/02/16 12:54; Admin Dose 37.5 MG; Start 08/02/16 at 12:00 Venlafaxine HCl 75 mg DAILYWM PO Last administered on 08/02/16 08:40; Admin Dose 75 MG; Start 08/02/16 at 08:00 Mental Status Exam Vital Signs Vital Signs Date Time Temp Pulse Resp B/P Pulse Ox O2 Delivery O2 Flow Rate FiO2 08/02/16 10:57 36.8 90 20 86/50 Appearance: Neat/well groomed Attitude: Guarded Behavior: Overtly anxious, Tearful, Distractible Affect: Flat Mood: Depressed, Anxious, Fearful Thought Process/Associations: Goal Directed Speech Production: Paucity Speech Rate: Lags/Latency Speech Articulation: Other (soft) Thought Content: Negativistic, Perseveration Danger to Self/Suicidal Ideati: Active, Plan (denies), Intent (denies while in hospital) Danger to Others: None Delusions: Paranoid Hallucinations: Auditory (Endorses), Visual (Denies) Consciousness: Hyper-vigilant Orientation: Person, Place, Date, Situation Memory: Grossly Intact (but difficult to assess) Estimate Intellectual Function: Average Attention/Concentration & Cogn: Impaired Insight: Limited Judgement: Limited Mental Health Plan The patient is a 71-year-old white female with an over 40-year history of depression. Over the past month she has had several stressors relating to the illness of her who is her primary support and caregiver. As a result, she has had a relatively steady decline with increased depression culminating in suicidal ideation, recent suicide attempt, and cognitive impairment. Since I last saw Roma she has made little progress. Her psychiatric staff Has been trying multiple different approaches including medications group therapy and individual therapy. She continues to be in a severely depressed state with suicidal ideation and self deprecatory statements. I talked with her about continuing to target symptoms with a combination of increasing Effexor fluoxetine and Seroquel. She agreed to this trial. We will also continue Lamictal melatonin and Klonopin as well. Today she seemed more bright and may be responding to the increase of Effexor. [place] I: 1. Major depressive disorder, severe, with psychosis. 2. Rule out bipolar one disorder, depressed with psychotic features. 3. Rule out cognitive disorder unspecified. [place] II: Deferred. [place] III: Osteoarthritis, asthma, chronic obstructive pulmonary disease. [place] IV: Moderate. [place] V: Global Assessment of Functioning equal to 30. Medications Fluoxetine 20 mg daily Lamotrigine 200 mg daily Melatonin 5 mg nightly Clonazepam 0.5 mg twice daily Quetiapine 50 mg every morning and 100 at bedtime venlafaxine to 75 mg every morning and 37.5 mg at noon Treatments 1. The patient is encouraged to participate with group and milieu therapy. 2. The patient is encouraged to continue medications as prescribed. 3. The patient will meet with the treatment team on a daily basis to assess symptoms, side effects, and response to treatment. 4. The patient will continue to have a one-to-one with her episodically due to her increased risk for fall. 5. quetiapine to 50 mg daily and 100 mg nightly. 6. venlafaxine to 75 mg every morning and 37.5 mg at noon 7. fluoxetine to 20mg po daily Peter Campa MD Aug 02, 2016 15:19
[2016-08-02 16:00] VITALS: BP 87/52; PULSE 92; RESP 16
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
[2016-08-02 18:31] VITALS: BP 95/55; PULSE 89; RESP 16
--- NOTE | 2016-08-02 20:53 | NUR ---
Med compliance Pt refused meds. She was encouraged to take them. Pt responded with silence. Will offer meds again later this evening. Bed alarm ON
[2016-08-02] MEDS: diphenhydrAMINE 25 mg Capsule PO SCH (21:22)
[2016-08-03] MEDS: lamoTRIgine 100 mg Tablet PO SCH (08:33)
[2016-08-03] MEDS: Venlafaxine XR 37.5 mg ER24 Capsule PO SCH (08:35)
--- NOTE | 2016-08-03 14:09 | PCM.PNPSY ---
Subjective Date of Service Aug 03, 2016 Subjective I spent 20 minutes both reviewing treatment plan and providing supportive/ educational psychotherapy. I spent less than 50% of the time counseling the patient. She could only tolerate brief interactions. I reviewed the treatment plan with the patient and discussed options. Roma reports continued symptoms of depression including mood, poor interest, suicidal ideation, and hopelessness. She is self-deprecatory in her impressions of herself and believes everybody would be better off if she were . Staff reports that she has been isolative and not participating well in one-to-one unit and group activities. She slept 10 hours . She denies medication side effects. Current Medications Current Medications Fluoxetine HCl 20 mg DAILY PO Last administered on 08/03/16 08:33; Admin Dose 20 MG; Start 08/02/16 at 08:30 Venlafaxine HCl 37.5 mg DAILYWL PO Last administered on 08/03/16 12:09; Admin Dose 37.5 MG; Start 08/02/16 at 12:00 Venlafaxine HCl 75 mg DAILYWM PO Last administered on 08/03/16 08:35; Admin Dose 75 MG; Start 08/02/16 at 08:00 Mental Status Exam Appearance: Neat/well groomed Attitude: Guarded Behavior: Overtly anxious, Tearful, Distractible Affect: Flat Mood: Depressed, Anxious, Fearful Thought Process/Associations: Goal Directed Speech Production: Paucity Speech Rate: Lags/Latency Speech Articulation: Other (soft) Thought Content: Negativistic, Perseveration Danger to Self/Suicidal Ideati: Active, Plan (denies), Intent (denies while in hospital) Danger to Others: None Delusions: Paranoid Hallucinations: Auditory (Endorses), Visual (Denies) Consciousness: Hyper-vigilant Orientation: Person, Place, Date, Situation Memory: Grossly Intact (but difficult to assess) Estimate Intellectual Function: Average Attention/Concentration & Cogn: Impaired Insight: Limited Judgement: Limited Mental Health Plan The patient is a 71-year-old white female with an over 40-year history of depression. Over the past month she has had several stressors relating to the illness of her who is her primary support and caregiver. As a result, she has had a relatively steady decline with increased depression culminating in suicidal ideation, recent suicide attempt, and cognitive impairment. Since I last saw Roma she has made little progress. Her psychiatric staff Has been trying multiple different approaches including medications group therapy and individual therapy. She continues to be in a severely depressed state with suicidal ideation and self deprecatory statements. I talked with her about continuing to target symptoms with a combination of increasing Effexor fluoxetine and Seroquel. She agreed to this trial. We will also continue Lamictal melatonin and Klonopin as well. She seems to be responding and tolerating the increase of Effexor. Will increase again by 37.5 mg. [place] I: 1. Major depressive disorder, severe, with psychosis. 2. Rule out bipolar one disorder, depressed with psychotic features. 3. Rule out cognitive disorder unspecified. [place] II: Deferred. [place] III: Osteoarthritis, asthma, chronic obstructive pulmonary disease. [place] IV: Moderate. [place] V: Global Assessment of Functioning equal to 30. Medications Decreased to Fluoxetine 10 mg daily ( to minimize potential of serotonin syndrome given addition and increases in Seroquel and Effexor) Lamotrigine 200 mg daily Melatonin 5 mg nightly Clonazepam 0.5 mg twice daily Quetiapine 50 mg every morning and 100 at bedtime venlafaxine to 75 mg every morning and 75 mg at noon Treatments 1. The patient is encouraged to participate with group and milieu therapy. 2. The patient is encouraged to continue medications as prescribed. 3. The patient will meet with the treatment team on a daily basis to assess symptoms, side effects, and response to treatment. 4. The patient will continue to have a one-to-one with her episodically due to her increased risk for fall. 5. quetiapine to 50 mg daily and 100 mg nightly. 6. venlafaxine to 75 mg every morning and 37.5 mg at noon 7. Decreased to fluoxetine to 10mg po daily Peter Campa MD Aug 03, 2016 14:09
[2016-08-03] MEDS: LORazepam 0.5 mg Tablet PO PRN (14:53)
--- NOTE | 2016-08-03 16:54 | NUR ---
Nursing Dayshift: S: "I'm afraid I'm ." O: Patient making some bizarre statements this afternoon. Accepted offer for prn Ativan 0.5 mg at 1453. Noted to be calmer napping intermittently with some talking in her sleep reported by MHA watching her on 1:1. Unsteady gait loosing her balance one time while reaching to the floor for an item she had spotted. Poor appetite. Accepted medications this AM and at noon without much encouragement. A: Med compliant. Poor gait with 1:1 needed for safety of patient. P: CPOC. Monitor mood and behavior.
[2016-08-03 18:08] VITALS: BP 107/64; PULSE 96; RESP 16
--- NOTE | 2016-08-03 18:34 | NUR ---
Deaf Interpreter/Counselor: S: "I'm ." O: Patient slept 10+ hours last night as per staff. She denies S/I and H/I. Patient sat in a chair in her room with her head down and was tearful. A: Patient is cooperative, guarded, tearful, flat affect, depressed, fearful, paranoid, delusional limited insight, limited judgment. P: Follow care plan coordinate out-patient providers.
--- NOTE | 2016-08-03 19:48 | NUR ---
Obs Dayshift Pt had a hard first half of this shift, crying, sad, depressed, constant AH, voices telling her what a bad person she is, etc. Pt had a difficult time walking, weak and stating to staff to just let her fall, let her out so she could go . Not eating breakfast or lunch, and drinking little. Pt received a PRN and took a long nap, woke when came to visit. She appeared much more bright, smiling, engaged well with him, went for a walk and fed herself 90% of dinner and all fluids on her tray. stated that was the that he knew. Ok ADL's, Good meals
[2016-08-03] MEDS: diphenhydrAMINE 25 mg Capsule PO SCH (20:26)
--- NOTE | 2016-08-03 22:41 | NUR ---
Nurses Note Evening Patient remains on 1:1 for safety due to an unsteady gait,confusion and impulsivity. Patient had a better evening an last evening. She was brighter,more spontaneous in response with reality based responses. She enjoyed a lengthy visit with her and was observed smiling. Will maintain 1:1 for safety,support and assessment of mental status and medication efficacy.
--- NOTE | 2016-08-04 05:27 | NUR ---
Pt isolated to room much of evening. 1:1 for safety. Pt slept some asleep at 2044. Pt observed every 15 minutes as ordered.
--- NOTE | 2016-08-04 06:09 | NUR ---
nursing, nights, 11-7 s/o- has one to one direct observation. has appeared to sleep after 2044. assisted to the toilet at 0300 and easily returned to sleep. assessed q 15 minutes. a- no apparent distress. p- monitor behavior/emotional state, quality, times and amount of sleep, use and effect of medication. continue one to one for safety. rosaline
[2016-08-04] MEDS: lamoTRIgine 100 mg Tablet PO SCH (08:58)
[2016-08-04] MEDS: Venlafaxine XR 37.5 mg ER24 Capsule PO SCH (08:58)
--- NOTE | 2016-08-04 13:26 | PCM.PNPSY ---
Subjective Date of Service Aug 04, 2016 Subjective I spent 20 minutes both reviewing treatment plan and providing supportive/ educational psychotherapy. I spent less than 50% of the time counseling the patient. She could only tolerate brief interactions. I reviewed the treatment plan with the patient and discussed options. Roma reports continued symptoms of depression including mood, poor interest, suicidal ideation, and hopelessness. She is self-deprecatory in her impressions of herself and believes everybody would be better off if she were . Staff reports that she has been isolative and not participating well in one-to-one unit and group activities. She slept 9.5 hours . She denies medication side effects. Current Medications Current Medications Fluoxetine HCl 10 mg DAILY PO Last administered on 08/04/16 08:59; Admin Dose 10 MG; Start 08/04/16 at 08:30 Venlafaxine HCl 75 mg DAILYWL PO Last administered on 08/04/16 11:54; Admin Dose 75 MG; Start 08/04/16 at 12:00 Mental Status Exam Appearance: Neat/well groomed Attitude: Guarded Behavior: Overtly anxious, Tearful, Distractible Affect: Flat Mood: Depressed, Anxious, Fearful Thought Process/Associations: Goal Directed Speech Production: Paucity Speech Rate: Lags/Latency Speech Articulation: Other (soft) Thought Content: Negativistic, Perseveration Danger to Self/Suicidal Ideati: Active, Plan (denies), Intent (denies while in hospital) Danger to Others: None Delusions: Paranoid Hallucinations: Auditory (Endorses), Visual (Denies) Consciousness: Hyper-vigilant Orientation: Person, Place, Date, Situation Memory: Grossly Intact (but difficult to assess) Estimate Intellectual Function: Average Attention/Concentration & Cogn: Impaired Insight: Limited Judgement: Limited Mental Health Plan The patient is a 71-year-old white female with an over 40-year history of depression. Over the past month she has had several stressors relating to the illness of her who is her primary support and caregiver. As a result, she has had a relatively steady decline with increased depression culminating in suicidal ideation, recent suicide attempt, and cognitive impairment. Since I last saw Roma she has made little progress. Her psychiatric staff Has been trying multiple different approaches including medications group therapy and individual therapy. She continues to be in a severely depressed state with suicidal ideation and self deprecatory statements. I talked with her about continuing to target symptoms with a combination of increasing Effexor fluoxetine and Seroquel. She agreed to this trial. We will also continue Lamictal melatonin and Klonopin as well. She seems to be responding and tolerating the increase of Effexor. Will increase again by 37.5 mg. [place] I: 1. Major depressive disorder, severe, with psychosis. 2. Rule out bipolar one disorder, depressed with psychotic features. 3. Rule out cognitive disorder unspecified. [place] II: Deferred. [place] III: Osteoarthritis, asthma, chronic obstructive pulmonary disease. [place] IV: Moderate. [place] V: Global Assessment of Functioning equal to 30. Medications Decreased to Fluoxetine 10 mg daily ( to minimize potential of serotonin syndrome given addition and increases in Seroquel and Effexor) Lamotrigine 200 mg daily Melatonin 5 mg nightly Clonazepam 0.5 mg twice daily Quetiapine 50 mg every morning and 100 at bedtime venlafaxine to 75 mg every morning and 75 mg at noon Treatments 1. The patient is encouraged to participate with group and milieu therapy. 2. The patient is encouraged to continue medications as prescribed. 3. The patient will meet with the treatment team on a daily basis to assess symptoms, side effects, and response to treatment. 4. The patient will continue to have a one-to-one with her episodically due to her increased risk for fall. 5. Fluoxetine 10 mg daily ( to minimize potential of serotonin syndrome given addition and increases in Seroquel and Effexor) Lamotrigine 200 mg daily Melatonin 5 mg nightly Clonazepam 0.5 mg twice daily Quetiapine 50 mg every morning and 100 at bedtime venlafaxine to 75 mg every morning and 75 mg at noon Peter Campa MD Aug 04, 2016 13:26
--- NOTE | 2016-08-04 15:54 | NUR ---
Nursing Dayshift: S: "Sure I'll have that chocolate." O: Patient offered a piece of chocolate and did not readily respond. Then after about 5 minutes agreed to have the chocolate. Has been more verbal today. Some initiating of conversation. Not much eaten at meals. Is drinking Ensure. Continues with usual statements about not deserving a good . A: More animated. Med compliant. P: CPOC. Monitor mood and behavior.
--- NOTE | 2016-08-04 19:34 | NUR ---
D- Patient ate about 25% of breakfast, no lunch, and 10% of dinner this shift. She attended basic hygiene items independently and appears fairly well groomed. Patient attended one activity this shift and engaged fully. A- 0900 patient was in the dining room for breakfast. Patient began to get teary and state "I told them not to give me breakfast. I'd just waste it." Patient appears irritable and restless even when informed that everyone has their own tray. Tried to leave the unit through multiple locked doors around the nurses' station. When told she was unable to leave patient grew physically despondent and emotionally irritable. Patient stated "I didn't want to touch any animal" with no overt provocation and when asked to elaborate stated "I don't care what anyone says, I didn't want to touch any animal and hurt it." She then declined to speak about it and asked "How do I get out of this building? I know it sounds like over and over but I just need to get out of here and get out of everybody's hair." When asked where she would go, patient grew teary and said "I don't know. I can't go back to my because I just can't go back to him again." 1000 Patient went outside. When she was told what it would be like she stated that she still wanted to go outside but began to cry when outside. Patient returned inside but continued to periodically froze. She stopped at one point and was looking into the nurses station and said "Well Rip! If you would just open the door so I could leave then we'd really have something!" When asked who Rip was she wouldn't elaborate, but did later state he and a few other individuals she had referenced throughout the shift, were friends and family in her life. She did appear to be yelling at them or talking to them when they were not on the unit. She then began to state "I know you all hate me so you should just let me go. I don't know why you want to keep me here... I can hear people talking and saying 'I hate her'." Patient wouldn't elaborate on any of the above interactions or hallucinations but did gesture to unseen others periodically. 1500 Patient got up for lunch. She appeared unable to walk on the white tiles back to her room. Patient began to cry loudly in her room. She refused to open her eyes and speak with staff. Patient fell asleep for about half an hour and when she woke up she appeared confused and disoriented. Patient stated "I'm ready to go on this trip." She then changed her clothes and put on her coat. Patient was reminded again where she was and became quiet and introspective. She then shouted sarcastically "It's gonna be real fun going when he's drunk!" She then stated with conviction that her aforementioned friends were drunk but Rip was going to drive anyway. [id number] Patient became isolative and crying. She declined to engage except to point at a wall and state "look!" Patient family came at 1800 despite her repeatedly stating that he wasn't going to and that she was undeserving of his visit. She became teary but calm during the visit and has gone to bed. She denies any suicidal ideation but denies most conversation about her mental illness or the reason she is here.
[2016-08-04] MEDS: diphenhydrAMINE 25 mg Capsule PO SCH (21:37)
--- NOTE | 2016-08-05 04:43 | NUR ---
Pt isolated to room much of evening. 1:1 for safety. Pt slept some asleep at 2315-145. Pt was very sad and crying earlier in shift as well as paranoid and anxious. Pt observed every 15 minutes as ordered.
--- NOTE | 2016-08-05 06:02 | NUR ---
nursing, nights, 11-7 s/o- has appeared to sleep 2315 to 0145. assisted to the toilet to void and back to bed. somewhat impulsive when ambulating. remains quiet in bed. direct one to one observation and assistance. assessed q 15 minutes. a- inadequate sleep, no apparent distress. p- monitor behavior/emotional state, quality, times and amount of sleep, use and effect of medication. continue one to one staffing for safety. rosaline
[2016-08-05] MEDS: lamoTRIgine 100 mg Tablet PO SCH (07:43)
[2016-08-05] MEDS: Venlafaxine XR 37.5 mg ER24 Capsule PO SCH (07:44)
[2016-08-05 11:00] VITALS: BP 110/69; PULSE 87; RESP 18
--- NOTE | 2016-08-05 12:21 | PCM.PNPSY ---
Subjective Date of Service Aug 05, 2016 Subjective I spent 20 minutes both reviewing treatment plan and providing supportive/ educational psychotherapy. I spent less than 50% of the time counseling the patient. She could only tolerate brief interactions. I reviewed the treatment plan with the patient and discussed options. Roma reports continued symptoms of depression including mood, poor interest, suicidal ideation, and hopelessness. She is self-deprecatory in her impressions of herself and believes everybody would be better off if she were . Staff reports that she has been isolative and not participating well in one-to-one unit and group activities. She slept 9.5 hours . She denies medication side effects. Current Medications Current Medications Fluoxetine HCl 10 mg DAILY PO Last administered on 08/05/16 07:42; Admin Dose 10 MG; Start 08/04/16 at 08:30 Venlafaxine HCl 75 mg DAILYWL PO Last administered on 08/04/16 11:54; Admin Dose 75 MG; Start 08/04/16 at 12:00 Mental Status Exam Appearance: Neat/well groomed Attitude: Guarded Behavior: Overtly anxious, Tearful, Distractible Affect: Flat Mood: Depressed, Anxious, Fearful Thought Process/Associations: Goal Directed Speech Production: Paucity Speech Rate: Lags/Latency Speech Articulation: Other (soft) Thought Content: Negativistic, Perseveration Danger to Self/Suicidal Ideati: Active, Plan (denies), Intent (denies while in hospital) Danger to Others: None Delusions: Paranoid Hallucinations: Auditory (Endorses), Visual (Denies) Consciousness: Hyper-vigilant Orientation: Person, Place, Date, Situation Memory: Grossly Intact (but difficult to assess) Estimate Intellectual Function: Average Attention/Concentration & Cogn: Impaired Insight: Limited Judgement: Limited Mental Health Plan The patient is a 71-year-old white female with an over 40-year history of depression. Over the past month she has had several stressors relating to the illness of her who is her primary support and caregiver. As a result, she has had a relatively steady decline with increased depression culminating in suicidal ideation, recent suicide attempt, and cognitive impairment. I talked with her about continuing to target symptoms with a combination of increasing Effexor fluoxetine and Seroquel. She agreed to this trial. We will also continue Lamictal melatonin and Klonopin as well. Despite the patient continuing to be extremely negatively focus She does seem to be responding and tolerating the increase of Effexor. [place] I: 1. Major depressive disorder, severe, with psychosis. 2. Rule out bipolar one disorder, depressed with psychotic features. 3. Rule out cognitive disorder unspecified. [place] II: Deferred. [place] III: Osteoarthritis, asthma, chronic obstructive pulmonary disease. [place] IV: Moderate. [place] V: Global Assessment of Functioning equal to 30. Medications Decreased to Fluoxetine 10 mg daily ( to minimize potential of serotonin syndrome given addition and increases in Seroquel and Effexor) Lamotrigine 200 mg daily Melatonin 5 mg nightly Clonazepam 0.5 mg twice daily Quetiapine 50 mg every morning and 100 at bedtime venlafaxine to 75 mg every morning and 75 mg at noon Treatments 1. The patient is encouraged to participate with group and milieu therapy. 2. The patient is encouraged to continue medications as prescribed. 3. The patient will meet with the treatment team on a daily basis to assess symptoms, side effects, and response to treatment. 4. The patient will continue to have a one-to-one with her episodically due to her increased risk for fall. 5. Fluoxetine 10 mg daily ( to minimize potential of serotonin syndrome given addition and increases in Seroquel and Effexor) Lamotrigine 200 mg daily Melatonin 5 mg nightly Clonazepam 0.5 mg twice daily Quetiapine 50 mg every morning and 100 at bedtime venlafaxine to 75 mg every morning and 75 mg at noon Peter Campa MD Aug 05, 2016 12:21
[2016-08-05] MEDS: LORazepam 0.5 mg Tablet PO PRN (17:05)
--- NOTE | 2016-08-05 18:14 | NUR ---
Correctional Food Service Supervisor/Counselor: S: "I know you want to kick me out of here." O: Patient only slept 2.5 hours last night as per staff. She reports thoughts of hurting herself, no plan, contracts for safety. She denies H/I. She also denies auditory and visual hallucinations. She did not rate depression and anxiety. A: Patient is cooperative, guarded, depressed, paranoid, fearful, anxious, limited insight, limited judgment. P: Follow care plan, coordinate out-patient providers.
--- NOTE | 2016-08-05 18:27 | NUR ---
Nursing Dayshift: S: "Good morning Prosper." O: Patient addressing this staff by name this AM. Up in dining room and ate 25% breakfast, no lunch, and drank an ensure for dinner. More conversive today. Carrying on conversations with the 1:1 staff. Has attended unit activities. here at present visiting. A: A little more animated today. P: CPOC. Monitor mood and behavior.
--- NOTE | 2016-08-05 18:32 | NUR ---
[facility] Day Shift Pt maintained behavioral control throughout the shift. Pt affect appears mostly flat, occasionally distraught. Pt spends most of the shift resting in her room or sitting quietly in the dining room. Pt is appropriate with staff and peers when active on the unit, but is not social. Pt continues to ask about DC, appearing forgetful of staff responses to questions. Pt attended community meeting in the AM and participated in group activities throughout the shift. Pt attended all meals, but only ate approx 15% of breakfast and declined to eat lunch or dinner.
[2016-08-05] MEDS: diphenhydrAMINE 25 mg Capsule PO SCH (20:43)
--- NOTE | 2016-08-06 06:04 | NUR ---
Pt isolated to room much of evening. Out on unit with during visiting hours. 1:1 for safety. Pt slept some asleep at 2200. Pt mood more positive and interactions more appropriate. She did note hearing her sister fighting with the gang members outside her window in the street. She did however remember having hallucinations and delusions before from Depressive episode and so was redirectable. Pt observed every 15 minutes as ordered.
--- NOTE | 2016-08-06 06:12 | NUR ---
Nursing Noc Pt remains a fall risk using FWW when up with 1:1 sitter. Sitter still prompting patient to use walker. Pt mood and mentation appears to be clearing per . Pt awaking this am much less paranoid then previously noted shifts. Court hearing scheduled for Monday for possible 90MR. was with patient all night during visiting hours and appeared very positive with patients recent improvements. Continuing to monitor, mood, behavior, emotional state, sleep quality and medications. CP
[2016-08-06] MEDS: lamoTRIgine 100 mg Tablet PO SCH (08:34)
[2016-08-06] MEDS: Venlafaxine XR 37.5 mg ER24 Capsule PO SCH (08:35)
[2016-08-06 12:26] VITALS: BP 102/62; PULSE 90; RESP 20
--- NOTE | 2016-08-06 16:04 | PCM.PNPSY ---
Subjective Date of Service Aug 06, 2016 Subjective I spent 20 minutes both reviewing treatment plan and providing supportive/ educational psychotherapy. I spent less than 50% of the time counseling the patient. She could only tolerate brief interactions. I reviewed the treatment plan with the patient and discussed options. Roma reports continued symptoms of depression including mood, poor interest, suicidal ideation, and hopelessness. She is self-deprecatory in her impressions of herself and believes everybody would be better off if she were . Staff reports that she has been isolative and not participating well in one-to-one unit and group activities. She slept 7hours . She denies medication side effects. Mental Status Exam Vital Signs Vital Signs Date Time Temp Pulse Resp B/P Pulse Ox O2 Delivery O2 Flow Rate FiO2 08/06/16 12:26 37.0 90 20 102/62 Appearance: Neat/well groomed Attitude: Guarded Behavior: Overtly anxious, Tearful, Distractible Affect: Flat Mood: Depressed, Anxious, Fearful Thought Process/Associations: Goal Directed Speech Production: Paucity Speech Rate: Lags/Latency Speech Articulation: Other (soft) Thought Content: Negativistic, Perseveration Danger to Self/Suicidal Ideati: Active, Plan (denies), Intent (denies while in hospital) Danger to Others: None Delusions: Paranoid Hallucinations: Auditory (Endorses), Visual (Denies) Consciousness: Hyper-vigilant Orientation: Person, Place, Date, Situation Memory: Grossly Intact (but difficult to assess) Estimate Intellectual Function: Average Attention/Concentration & Cogn: Impaired Insight: Limited Judgement: Limited Mental Health Plan The patient is a 71-year-old white female with an over 40-year history of depression. Over the past month she has had several stressors relating to the illness of her who is her primary support and caregiver. As a result, she has had a relatively steady decline with increased depression culminating in suicidal ideation, recent suicide attempt, and cognitive impairment. I talked with her about continuing to target symptoms with a combination of increasing Effexor fluoxetine and Seroquel. She agreed to this trial. We will also continue Lamictal melatonin and Klonopin as well. Jenn was less negative today. She does seem to be responding and tolerating the increase of Effexor. [place] Alpine I: 1. Major depressive disorder, severe, with psychosis. 2. Rule out bipolar one disorder, depressed with psychotic features. 3. Rule out cognitive disorder unspecified. [place] II: Deferred. [place] III: Osteoarthritis, asthma, chronic obstructive pulmonary disease. [place] IV: Moderate. [place] V: Global Assessment of Functioning equal to 35. Medications Decreased to Fluoxetine 10 mg daily ( to minimize potential of serotonin syndrome given addition and increases in Seroquel and Effexor) Lamotrigine 200 mg daily Melatonin 5 mg nightly Clonazepam 0.5 mg twice daily Quetiapine 50 mg every morning and 100 at bedtime venlafaxine to 75 mg every morning and 75 mg at noon Treatments 1. The patient is encouraged to participate with group and milieu therapy. 2. The patient is encouraged to continue medications as prescribed. 3. The patient will meet with the treatment team on a daily basis to assess symptoms, side effects, and response to treatment. 4. The patient will continue to have a one-to-one with her episodically due to her increased risk for fall. 5. Fluoxetine 10 mg daily ( to minimize potential of serotonin syndrome given addition and increases in Seroquel and Effexor) Lamotrigine 200 mg daily Melatonin 5 mg nightly Clonazepam 0.5 mg twice daily Quetiapine 50 mg every morning and 100 at bedtime venlafaxine to 75 mg every morning and 75 mg at noon Peter Campa MD Aug 06, 2016 16:04
--- NOTE | 2016-08-06 16:09 | NUR ---
Nursing 7am-7pm S/O: "I had a double dose of the flu vaccine." Patient c/o mild congestion and abdominal pain. Upon assessment, lungs clear, no c/o SOB. Pt reported recently having the flu. MD notified. Flu swab sent per order. Patient up to dining room for lunch. At 1235 upon attempting to ambulate, patient slid off side of chair to floor. Patient assessed, no apparent injury, Pt denied pain other than left leg pain present on admission, VSS. notified. Patient ambulated with assistance to wheelchair and was escorted back to room. Tylenol administered, effective. Non-skid socks on for safety, 1:1 fresh food manager remains at bedside. A: Occasional hallucinations, weakness, unsteady gait P: Continue with 1:1 observation, fall prevention, plan of care, and effectiveness of medications
[2016-08-06] MEDS: diphenhydrAMINE 25 mg Capsule PO SCH (20:37)
--- NOTE | 2016-08-06 22:47 | NUR ---
OBSERVATIONS 0900 TO 2130 Pt was isolative most of the shift. Pt mentation appeared clearer in the morning, however, physically pt was unsteady and weak. After pt finished lunch, she attempted to push away from table and stand, chair gave way and pt fell to floor. Pt reported soreness in right hip which resolved after RN administered Tylenol and an ice pack. Doctor was informed. As the day progressed, pt mentation began to return to previous state with hallucinations and depression, however, coordination improved and pt was more steady on feet. Pt had 2 visits from which both appeared to go well. Pt ate 75% breakfast, 50% lunch, and 50% dinner. Maintained Q15 checks for safety as directed.
--- NOTE | 2016-08-07 06:00 | NUR ---
Nursing notes: mini shifter/falls Patient sleeping for long intervals with 1:1 observation for safety. Patient continues to get out of bed without asking for assistance. Patient is reluctant to use walker, but when prompted is cooperative to use aid. Patient able to walk with slow steady gain with assistance. Patient up to use bathroom x 3 during the night with supervision. Patient appears to readily fall back to sleep when back in bed, denies complaints.
--- NOTE | 2016-08-07 07:23 | NUR ---
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 I know that! They told me that it was my time to go..." O.: met with pt. in a private room in the middle of afternoon. She continued having 1:1 for safety. She was in and out of her room walking with a walker. She didn't notice any help from meds. She said that she "was off AH for 6 years because of the right medications" for her "Bipolar". She continued having AH and VH - "I can hear them very clear. They said that I spent all our money but my check book didn't show that. It is very confusing. It's hard to believe that I have done some things that they are talking about. I don't think I killed people, I'm not a murderer but they are talking about it..." She continued having passive SI but she didn't have a plan and she was able to contract for safety. She denied HI. She felt very depressed but she couldn't rate it. She couldn't identify how anxious she was at the time of the conversation. She was able to talk about her and their "projects at home". She became brighter and more talkative describing things that they did at home. She agreed to practice detachment from AH. A.: pt. is cooperative, quiet, confused, internally preoccupied and responding on internal stimuli, isolative, paranoid and delusional at times. P.: monitor behavior, provide safety, work on reality check, follow care plan.
[2016-08-07] MEDS: Venlafaxine XR 37.5 mg ER24 Capsule PO SCH (09:00)
[2016-08-07] MEDS: lamoTRIgine 100 mg Tablet PO SCH (09:00)
[2016-08-07 10:58] VITALS: BP 96/58; PULSE 86; RESP 18
--- NOTE | 2016-08-07 13:18 | PCM.PNPSY ---
Subjective Date of Service Aug 07, 2016 Subjective I spent 30 minutes both reviewing treatment plan and providing supportive/ educational psychotherapy. I spent more than 50% of the time counseling the patient. I had a good talk with both she and her . She could tolerate our session today and did not need to take breaks. I reviewed the treatment plan with the patient and discussed options with both she and her . Roma reports continued symptoms of depression including mood, poor interest, suicidal ideation, and hopelessness but the intensity of all 4 symptoms has markedly decreased. She is self-deprecatory in her impressions of herself and believes everybody would be better off if she were but the intensity of this delusion has also decreased. Staff reports that she has been less isolative and is beginning to participate in one-to-one unit and group activities. She slept 7hours . She denies medication side effects. Mental Status Exam Vital Signs Vital Signs Date Time Temp Pulse Resp B/P Pulse Ox O2 Delivery O2 Flow Rate FiO2 08/07/16 10:58 37.0 86 18 96/58 Appearance: Neat/well groomed Attitude: Guarded Behavior: Overtly anxious, Tearful, Distractible Affect: Flat Mood: Depressed, Anxious, Fearful Thought Process/Associations: Goal Directed Speech Production: Paucity Speech Rate: Lags/Latency Speech Articulation: Other (soft) Thought Content: Negativistic, Perseveration Danger to Self/Suicidal Ideati: Active, Plan (denies), Intent (denies while in hospital) Danger to Others: None Delusions: Paranoid Hallucinations: Auditory (Endorses), Visual (Denies) Consciousness: Hyper-vigilant Orientation: Person, Place, Date, Situation Memory: Grossly Intact (but difficult to assess) Estimate Intellectual Function: Average Attention/Concentration & Cogn: Impaired Insight: Limited Judgement: Limited Mental Health Plan The patient is a 71-year-old white female with an over 40-year history of depression. Over the past month she has had several stressors relating to the illness of her who is her primary support and caregiver. As a result, she has had a relatively steady decline with increased depression culminating in suicidal ideation, recent suicide attempt, and cognitive impairment. I talked with her about continuing to target symptoms with a combination of increasing Effexor fluoxetine and Seroquel. She agreed to this trial. We will also continue Lamictal melatonin and Klonopin as well. Jenn was less negative today. She does seem to be responding and tolerating the increase of Effexor. Bernie Bernie I: 1. Major depressive disorder, severe, with psychosis. 2. Rule out bipolar one disorder, depressed with psychotic features. 3. Rule out cognitive disorder unspecified. Bernie II: Deferred. Bernie III: Osteoarthritis, asthma, chronic obstructive pulmonary disease. Bernie IV: Moderate. Bernie V: Global Assessment of Functioning equal to 35. Medications Fluoxetine 10 mg daily ( to minimize potential of serotonin syndrome given addition and increases in Seroquel and Effexor) Lamotrigine 200 mg daily Melatonin 5 mg nightly Clonazepam 0.5 mg twice daily Quetiapine 50 mg every morning and 100 at bedtime venlafaxine to 75 mg every morning and 75 mg at noon Treatments 1. The patient is encouraged to participate with group and milieu therapy. 2. The patient is encouraged to continue medications as prescribed. 3. The patient will meet with the treatment team on a daily basis to assess symptoms, side effects, and response to treatment. 4. The patient will continue to have a one-to-one with her episodically due to her increased risk for fall. 5. Fluoxetine 10 mg daily ( to minimize potential of serotonin syndrome given addition and increases in Seroquel and Effexor) Lamotrigine 200 mg daily Melatonin 5 mg nightly Clonazepam 0.5 mg twice daily Quetiapine 50 mg every morning and 100 at bedtime venlafaxine to 75 mg every morning and 75 mg at noon 6. Client has a 90 day MR ken scheduled for Monday to 08/10/16 Peter Campa MD Aug 07, 2016 13:18
[2016-08-07] MEDS: hydrOXYzine Pamoate 25 mg Capsule PO PRN (15:13)
--- NOTE | 2016-08-07 17:40 | NUR ---
[facility] Day Shift Pt maintained behavioral control throughout the shift. Pt affect appears mostly flat, occasionally distraught. Pt spends most of the shift resting in her room or sitting quietly in the dining room. Pt is appropriate with staff and peers when active on the unit, but is not social. Pt continues to ask about DC, appearing forgetful of staff responses to questions. Pt did not participate in group activities throughout the shift. Pt attended all meals and ate approx 10% of breakfast and lunch. Pt ate approx 40% of dinner.
--- NOTE | 2016-08-07 18:40 | NUR ---
Nursing Note [id number] S: I hate her guts and she hates my guts. Everyone here is making fun of me and laughing at me. I dont get mad very often, but when I do, you better watch out. O: Patient talking to spouse about someone they know-spouse assured this person was not here. Patient is insistent that the person is here. Patient continues to have a one to one sitter due to falls risk. Patient resistant to using walker. Refusing to take hands out of her pockets. At one point patient aggressively attempted to push the walker across the ram away from her. Continues to have 1:1 sitter due to falls risk. A: Patient responding to internal stimuli. One episode of angry outburst while spouse visiting. Resistant to help from staff. Refusing to follow directions of sitter. Difficult to redirect at times. Labile at times, even when was visiting. P: Monitor for response to treatment. Q 15 min checks for safety. Follow plan of care. Addendum: 08/07/16 at 1841 by EUGENIA MCKINLEY RN PRNs Vistaril 50 mg for anxiety @ 1513-patient unable to rate. Effective, patient no longer crying.
[2016-08-07] MEDS: diphenhydrAMINE 25 mg Capsule PO SCH (21:01)
[2016-08-07 21:05] VITALS: PULSE 91; RESP 18; O2SAT 95
--- NOTE | 2016-08-08 06:23 | NUR ---
Nursing NOC pt remained in room all shift with sitter in place, able to coherently talk about her inhaler and nebulizer use, RT up to give pt neb treatment for increased wheezing. Pt has paranoid episodes thinking that "there is a man out there who will come in and kill me" Pt was assured that she was safe here and staff would let nothing happen to her which seemed to calm her as she turned around and went to sleep. Pt up to BR with FWW and sitter R at her side when pt just let herself fall down. Sitter unable to catch pt and pt had ground level fall without hitting her head. Pt able to move all extremities and no injuries found. Instructed Sitter to use call light whenever pt got up to make pt a 2PA.
[2016-08-08] MEDS: Venlafaxine XR 37.5 mg ER24 Capsule PO SCH (09:37)
[2016-08-08] MEDS: lamoTRIgine 100 mg Tablet PO SCH (09:37)
[2016-08-08 10:17] VITALS: BP 111/68; PULSE 88; RESP 15
--- NOTE | 2016-08-08 16:31 | NUR ---
Observations 0900 to 1800 Pt affect and behavior is much the same as previous shifts, though perhaps with slightly more time spent socializing and coloring in dining room. Pt remains emotional, depressed, self-loathing. Pt frequently starts crying during day after hearing voices of friends and family. "They told me Leon is hurt, why are they doing this." Pt also frequently states intent to leave hospital "They told me its time to leave and they are kicking me out of here." Pt attended community meeting in morning but no other groups during day. Pt is cooperative when directed by staff, but requires constant direction. Pt ate 40-60% of breakfast and lunch. Pt remains a falls risk and is very unsteady, especially when standing or sitting. Pt was observed with sitter 1:1 due to falls risk.
[2016-08-08] MEDS ORDERED: Venlafaxine XR 75 mg ER24 Capsule PO ONE (17:30)
--- NOTE | 2016-08-08 18:18 | NUR ---
Nursing: Day Shift: S: I have a sexually transmitted disease. O: Roma is alert. She is oriented to the fact that she is at [facility]. 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 She is focused on delusional themes; That she is discharged and is to leave the hospital imminently; that she has done very bad things; that people don't like her. That her family members are in danger of being hurt. Dressed in her coat, holding a paper bag of clothes, ready to leave. Fall risk: Pt remains a fall risk. She is wearing a gait. Has 1:1 staff for observation. Psychosis: Not calling out to answer auditory hallucinations as earlier in admission. A: Remains depressed and psychotic. Takes scheduled meds as offered. p: Continue to assess for med change effects. Addendum: 08/08/16 at 1841 by YAEL HALL RN Amended: Links added.
--- NOTE | 2016-08-08 19:03 | NUR ---
Brush Clearer Surveying/Counselor: S: "My hates my guts and he's putting on a show." O: Patient slept 7.5 hours last night as per staff. She reports thoughts of wishing she was and doesn't deserve to live, but contracts for safety. She denies H/I. She reports hearing voices mostly during the day and sometimes at night. She denies visual hallucinations. Depression is "a little better" and anxiety. 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 I feel like giving up. I think I deserve all of this. The voices are saying terrible things about me." A: Patient is cooperative, guarded, depressed, tearful, paranoid, fearful, anxious, limited insight, limited judgment. P: Follow care plan, coordinate out-patient providers.
--- NOTE | 2016-08-08 19:46 | PCM.PNPSY ---
Subjective Date of Service Aug 08, 2016 Subjective The patient reports "I feel like just giving up." When confronted with the fact that she appears brighter with her she endorses this but also states that she does not deserve to live. She reports that her auditory hallucinations are somewhat worse and occur mostly during the day but occasionally at night. She reports that they tell her that she "rode horses, cattle, and sheep" and this does not make sense to her. She also reports that her depression is somewhat better and that she is "trying to come out of my shell." The patient is noted to be out of her room approximately 75% of today and occasionally interacting with others. Sleep: 7.5 hours Appetite: Reports eating but no appetite Suicidal and homicidal ideation: Reports "I do not deserve to live." Denies homicidal ideation. Auditory hallucinations: Endorses. Visual hallucinations: Denies Other Psychotic Symptoms: N/A Anxiety: Regarding others Depression: "A little better." Current Medications Current Medications Aripiprazole 5 mg DAILY PO Last administered on 08/08/16 13:44; Admin Dose 5 MG ; Start 08/08/16 at 13:10 Venlafaxine HCl 75 mg DAILYWD ONCE PO Last administered on 08/08/16 17:35; Admin Dose 75 MG; Start 08/08/16 at 17:30; Stop 08/08/16 at 17:31; Status DC Mental Status Exam Appearance: Neat/well groomed Attitude: Guarded Behavior: Overtly anxious, Tearful, Distractible Affect: Blunted Mood: Depressed, Anxious, Fearful Thought Process/Associations: Goal Directed Speech Production: Paucity Speech Rate: Lags/Latency Speech Articulation: Other (soft) Thought Content: Negativistic, Perseveration Danger to Self/Suicidal Ideati: Passive, Plan (denies), Intent (denies while in hospital) Danger to Others: None Delusions: Paranoid Hallucinations: Auditory (Endorses), Visual (Denies) Consciousness: Hyper-vigilant Orientation: Person, Place, Date, Situation Memory: Grossly Intact (but difficult to assess) Estimate Intellectual Function: Average Attention/Concentration & Cogn: Impaired Insight: Limited Judgement: Limited Mental Health Plan The patient is a 71-year-old white female with an over 40-year history of depression. Over the past month she has had several stressors relating to the illness of her who is her primary support and caregiver. As a result, she has had a relatively steady decline with increased depression culminating in suicidal ideation, recent suicide attempt, and cognitive impairment. She currently was only on Prozac. She is having multiple symptoms of depression related to mood, sleep, interest, guilt, energy, concentration, anhedonia, and now suicidal ideation. The patient's blood pressure has returned to normal. With the discontinuation of risperidone she has had the return of pathological guilt and worsening of suicidal ideation. Although she appears to have some improvement with the addition of quetiapine, she is still having ongoing auditory hallucinations. Venlafaxine was started and fluoxetine was cross tapered and she appears to have some brightening of her mood. She continues to endorse hallucinations and profound guilt. Given her unsteadiness on her feet, it does not appear that we can increase quetiapine further and so we discussed with the patient switching to aripiprazole as a more activating agent during the day. Patient agreeable to plan. [place] I: 1. Major depressive disorder, severe, with psychosis. 2. Rule out bipolar one disorder, depressed with psychotic features. 3. Rule out cognitive disorder unspecified. [place] II: Deferred. [place] III: Osteoarthritis, asthma, chronic obstructive pulmonary disease. [place] IV: Moderate. [place] V: Global Assessment of Functioning equal to 35. Medications Fluoxetine 10 mg daily Lamotrigine 200 mg daily Melatonin 5 mg nightly Clonazepam 0.5 mg twice daily Quetiapine 50 mg every morning and 100 at bedtime venlafaxine to 75 mg every morning and 75 mg at noon Treatments 1. The patient is encouraged to participate with group and milieu therapy. 2. The patient is encouraged to continue medications as prescribed. 3. The patient will meet with the treatment team on a daily basis to assess symptoms, side effects, and response to treatment. 4. The patient will continue to have a one-to-one with her episodically due to her increased risk for fall. 5. Discontinue fluoxetine. 6. Increase venlafaxine to 225 mg daily. 7. Discontinue quetiapine 50 mg daily and continue 100 mg at bedtime. 8. Initiate aripiprazole 5 mg now and then daily thereafter. 9. Client has a 90 day MR hearing scheduled for Monday to 08/10/16 Emerson Crain MD Aug 08, 2016 19:46
[2016-08-08] MEDS: diphenhydrAMINE 25 mg Capsule PO SCH (20:01)
--- NOTE | 2016-08-09 06:30 | NUR ---
Nursing Noc Pt continues with 1:1 sitter for risk of falls. She spent the beginning of the evening visiting w/ her spouse and watched a little bit of tv. She retired to her room and then became fearful that someone "shot Garth". Pt reassured and was assisted back to bed. Took scheduled medication and then appeared asleep just before 2100. She slept until 0615 for over 9 hours of sleep. Pt using FWW to ambulate and standby assist.
[2016-08-09 09:00] VITALS: BP 92/60; PULSE 85; RESP 16
[2016-08-09] MEDS: Venlafaxine XR 75 mg ER24 Capsule PO SCH (09:07)
[2016-08-09] MEDS: lamoTRIgine 100 mg Tablet PO SCH (09:19)
--- NOTE | 2016-08-09 17:28 | PCM.PNPSY ---
Subjective Date of Service Aug 09, 2016 Subjective The patient continues to perseverate on feeling that she should be either put in shelter or in a long-term psychiatric hospital. She reports still having auditory hallucinations. She is still out on the unit more and was working on crafts projects today and interacting in a limited fashion with peers today. She cannot say whether her hallucinations are any better today. The patient appears more steady on her feet today. No side effects reported. Sleep: 9.75 hours Appetite: Reports eating but still no appetite Suicidal and homicidal ideation: Reports "I do not deserve to live." Denies homicidal ideation. Auditory hallucinations: Endorses. Visual hallucinations: Denies Other Psychotic Symptoms: N/A Anxiety: Endorses Depression: Reports still prominent but unable to rate Current Medications Current Medications Aripiprazole 5 mg DAILY PO Last administered on 08/09/16 09:18; Admin Dose 5 MG ; Start 08/08/16 at 13:10 Venlafaxine HCl 75 mg DAILYWD ONCE PO Last administered on 08/08/16 17:35; Admin Dose 75 MG; Start 08/08/16 at 17:30; Stop 08/08/16 at 17:31; Status DC Venlafaxine HCl 225 mg DAILYWM PO Last administered on 08/09/16 09:07; Admin Dose 225 MG; Start 08/09/16 at 08:00 Mental Status Exam Appearance: Neat/well groomed Attitude: Guarded Behavior: Overtly anxious, Tearful, Distractible Affect: Blunted Mood: Depressed, Anxious, Fearful Thought Process/Associations: Goal Directed Speech Production: Paucity Speech Rate: Lags/Latency Speech Articulation: Other (soft) Thought Content: Negativistic, Perseveration Danger to Self/Suicidal Ideati: Passive, Plan (denies), Intent (denies while in hospital) Danger to Others: None Delusions: Paranoid Hallucinations: Auditory (Endorses), Visual (Denies) Consciousness: Hyper-vigilant Orientation: Person, Place, Date, Situation Memory: Grossly Intact (but difficult to assess) Estimate Intellectual Function: Average Attention/Concentration & Cogn: Impaired Insight: Limited Judgement: Limited Mental Health Plan The patient is a 71-year-old white female with an over 40-year history of depression. Over the past month she has had several stressors relating to the illness of her who is her primary support and caregiver. As a result, she has had a relatively steady decline with increased depression culminating in suicidal ideation, recent suicide attempt, and cognitive impairment. Prior to admission she was only on Prozac. She is having multiple symptoms of depression related to mood, sleep, interest, guilt, energy, concentration, anhedonia, and passive suicidal ideation. The patient's blood pressure has returned to normal. With the discontinuation of risperidone she has had the return of pathological guilt and worsening of suicidal ideation. Although she appeared to have some improvement with the addition of quetiapine, she was still having ongoing auditory hallucinations and was unable to tolerate increased dose without increased unsteadiness. Venlafaxine was started and fluoxetine was cross tapered and she appears to have some brightening of her mood. She continues to endorse hallucinations and profound guilt. Given her unsteadiness on her feet, it does not appear that we can increase quetiapine further and so we discussed with the patient switching to aripiprazole as a more activating agent during the day. The patient has tolerated the increase in venlafaxine so far and the addition of aripiprazole. Aripiprazole will be titrated as tolerated and quetiapine decreased. [place] I: 1. Major depressive disorder, severe, with psychosis. 2. Rule out bipolar one disorder, depressed with psychotic features. 3. Rule out cognitive disorder unspecified. [place] II: Deferred. [place] III: Osteoarthritis, asthma, chronic obstructive pulmonary disease. [place] IV: Moderate. [place] V: Global Assessment of Functioning equal to 35. Medications Aripiprazole 5 mg daily Lamotrigine 200 mg daily Melatonin 5 mg nightly Clonazepam 0.5 mg twice daily Quetiapine 100 at bedtime Venlafaxine XL 225 mg daily Treatments 1. The patient is encouraged to participate with group and milieu therapy. 2. The patient is encouraged to continue medications as prescribed. 3. The patient will meet with the treatment team on a daily basis to assess symptoms, side effects, and response to treatment. 4. The patient will continue to have a one-to-one with her episodically due to her increased risk for fall. 5. Increase aripiprazole to 10 mg daily 6. Continue venlafaxine to 225 mg daily. 7. Continue quetiapine 100 mg at bedtime. 8. Patient has a 90 day MR hearing scheduled for Monday to 08/12/16 Emerson Crain MD Aug 09, 2016 17:28
--- NOTE | 2016-08-09 18:12 | NUR ---
Observations [id number] Pt was awake and in the dining room upon start of shift. Pt's mood appeared very depressed and guilt stricken. She cried many times during the day, referencing how "awful she is", and how "no one should accept her." Pt did attend all meals, eating an average of 25%. Pt spent the majority of the day in the dining area, coloring. She appeared very distraught and often times would put on her coat and grabbed her belongings, referencing leaving. Pt had to be redirected. She attended groups and was friendly with peers and staff. Pt was observed every 15 minutes of shift as directed.
--- NOTE | 2016-08-09 19:08 | NUR ---
Nursing: Day shift 0700 to 1900 S: "Yes. (suicidal). "I would jump in front of a car (plan if she were not in hospital.) O: Roma is still very depressed, self-deprecatory, tearful, and anxious. Still expressed that she is wasting staff's time. That she has done terrible things. That her 'won't come tonight". Wears a wool coat most of the time even though it was warm and melba where she was sitting. However, she is coming out to meals, is eating meals, drinking about 1000 ml per day shift, staying out in dining room coloring with peers, is able to walk around unit with only one person assist, with fairly steady gait using FWWalker. Showered. A: Slowly improving. P: Continue to assess for response to med changes.
[2016-08-09] MEDS: diphenhydrAMINE 25 mg Capsule PO SCH (20:39)
--- NOTE | 2016-08-10 01:35 | NUR ---
Observations 1900 to 0700 Pt's visited again last night. Pt was observed by a one to one all shift. Pt first appeared asleep at 19:00 and was observed by a one to one as directed.
[2016-08-10] MEDS: Venlafaxine XR 75 mg ER24 Capsule PO SCH (09:48)
[2016-08-10] MEDS: lamoTRIgine 100 mg Tablet PO SCH (09:48)
[2016-08-10] MEDS: ARIPiprazole 10 mg Tablet PO SCH (09:49)
--- NOTE | 2016-08-10 11:56 | NUR ---
Nursing: Day shift: 699 through 1899 O: Roma is dressed neatly, Hair neatly combed, sittting at the dining room table in a chair that is strong and almost immovable by patient. She colors for about 15 min, puts head down on table about 5 min, and then returns to coloring. She doesn't initiate any conversation at all. Will return a comment if one asks. Continues to make statements about being worthless and bad. Takes all meds as offered, Fluid and Nutrition: Pt has not eaten breakfast. Has had 350 ml of water but refused juice and milk. DEnies hearing voices but staff reprot she thinks she hears voices of relatives just down the ram. A: Depressed. Psychotic. Delusional. P: Continue to assess for med effectiveness. Addendum: 08/10/16 at 1207 by YAEL HALL RN Amended: Links added.
[2016-08-10 13:37] VITALS: BP 103/59; PULSE 89; RESP 14
[2016-08-10 15:26] VITALS: BP 90/36; PULSE 87; RESP 16
[2016-08-10] MEDS: hydrOXYzine Pamoate 25 mg Capsule PO PRN (15:33)
--- NOTE | 2016-08-10 18:20 | NUR ---
[facility] Day Shift Pt affect and behavior unchanged from previous shifts. Pt maintained behavioral control throughout the shift. Pt affect appears mostly flat, occasionally distraught. Pt spends most of the shift resting in her room or sitting quietly in the dining room. Pt is appropriate with staff and peers when active on the unit, but is not social. Pt continues to ask about DC, appearing forgetful of staff responses to questions. Pt did not participate in group activities throughout the shift. Pt attended all meals and ate approx 10% of breakfast and lunch. Pt ate approx 40% of dinner.
[2016-08-10] MEDS: diphenhydrAMINE 25 mg Capsule PO SCH (20:13)
--- NOTE | 2016-08-10 21:07 | PCM.PNPSY ---
Subjective Date of Service Aug 10, 2016 Subjective The patient was seen on 3 separate occasions today. In the morning she reported being quite depressed "I cannot pull myself out. It is not a good day... They have done so many things I cannot be forgiven." The patient did state that she is feeling steady on her feet and is unsure whether she belongs in the [facility]. She also reported that the voices are a little quieter. By midday she was somewhat brighter and by the evening she was seen making excellent eye contact smiling and actually made a joke. This was seen while she was with her and after he left she continued to express an improved mood and was more optimistic. She continues to be out in the milieu working on crafts projects. She was noted to do a controlled fall at one point in midday but later reported that she believes it she could use a walker effectively. No side effects reported. Sleep: 10.5 hours Appetite: Reports eating but still no appetite Suicidal and homicidal ideation: Reports "I do not deserve to live." Denies homicidal ideation. Auditory hallucinations: Endorses, "a little quieter.". Visual hallucinations: Denies Other Psychotic Symptoms: N/A Anxiety: 03/19, "I cannot forgive myself." Depression: Reports still prominent but unable to rate Current Medications Current Medications Aripiprazole 10 mg DAILY PO Last administered on 08/10/16 09:49; Admin Dose 10 MG; Start 08/10/16 at 08:30 Quetiapine Fumarate 50 mg HS PO Last administered on 08/10/16 20:13; Admin Dose 50 MG; Start 08/10/16 at 21:00 Venlafaxine HCl 225 mg DAILYWM PO Last administered on 08/10/16 09:48; Admin Dose 225 MG; Start 08/09/16 at 08:00 Mental Status Exam Vital Signs Vital Signs Date Time Temp Pulse Resp B/P Pulse Ox O2 Delivery O2 Flow Rate FiO2 08/10/16 15:26 36.0 87 16 90/36 08/10/16 13:37 36.5 89 14 103/59 Appearance: Neat/well groomed Attitude: Guarded Behavior: Overtly anxious Affect: Restricted Mood: Depressed, Anxious, Fearful Thought Process/Associations: Goal Directed Speech Production: Paucity Speech Rate: Lags/Latency Speech Articulation: Other (soft) Thought Content: Negativistic, Perseveration Danger to Self/Suicidal Ideati: Passive, Plan (denies), Intent (denies while in hospital) Danger to Others: None Delusions: Paranoid Hallucinations: Auditory (Endorses), Visual (Denies) Consciousness: Hyper-vigilant Orientation: Person, Place, Date, Situation Memory: Grossly Intact (but difficult to assess) Estimate Intellectual Function: Average Attention/Concentration & Cogn: Impaired (but improving) Insight: Limited Judgement: Limited Mental Health Plan The patient is a 71-year-old white female with an over 40-year history of depression. Over the past month she has had several stressors relating to the illness of her who is her primary support and caregiver. As a result, she has had a relatively steady decline with increased depression culminating in suicidal ideation, recent suicide attempt, and cognitive impairment. Prior to admission she was only on Prozac. She is having multiple symptoms of depression related to mood, sleep, interest, guilt, energy, concentration, anhedonia, and passive suicidal ideation. The patient's blood pressure has returned to normal. The patient appears to have had a significant improvement in mood over the previous days/weeks with good eye contact smiles and brighter affect. She still endorses significant depression. It remains to be seen whether this will be maintained or whether it is due to her visit with her . [place] I: 1. Major depressive disorder, severe, with psychosis. 2. Rule out bipolar one disorder, depressed with psychotic features. 3. Rule out cognitive disorder unspecified. [place] II: Deferred. [place] III: Osteoarthritis, asthma, chronic obstructive pulmonary disease. [place] IV: Moderate. [place] V: Global Assessment of Functioning equal to 35. Medications Aripiprazole 10 mg daily Lamotrigine 200 mg daily Melatonin 5 mg nightly Clonazepam 0.5 mg twice daily Quetiapine 100 at bedtime Venlafaxine XL 225 mg daily Treatments 1. The patient is encouraged to participate with group and milieu therapy. 2. The patient is encouraged to continue medications as prescribed. 3. The patient will meet with the treatment team on a daily basis to assess symptoms, side effects, and response to treatment. 4. The patient will continue to have a one-to-one with her episodically due to her increased risk for fall. 5. Continue aripiprazole 10 mg daily and titrate as tolerated 6. Continue venlafaxine to 225 mg daily. 7. Decrease quetiapine to 50 mg at bedtime. 8. Patient has a 90 day MR hearing scheduled for Monday to 08/12/16 Emerson Crain MD Aug 10, 2016 21:06
--- NOTE | 2016-08-10 22:57 | NUR ---
NURSING NOTE [id number] Mood= "I'm not going to get my clothes back" *begins to cry* Affect= tearful and anxious at start of shift, much brighter by mid-to-late shift Behavior= often sitting in her room in a chair, staring ahead. Her visited. She is med compliant. Thought processes= delusional; convinced she is being discharged to the street without any clothes or her belongings, anxious but seemed improved after PRN Vistaril 50 mg at beginning of shift. Endorsed AH, denied VH.
--- NOTE | 2016-08-11 05:32 | NUR ---
Observations 1900 to 0700 Pt's visited again last night. Pt was observed by a one to one all shift. Pt first appeared asleep at 20:45 and was observed by a one to one as directed.
--- NOTE | 2016-08-11 05:41 | NUR ---
nursing, nights, 11-7 s/o- has direct observation/one to one assistance. assisted to toilet at start of shift. has appeared to sleep after 2044. assessed q 15 minutes. is currently being assisted with adl's. a- no apparent distress. p- monitor behavior/emotional state, quality, times and amount of sleep, use and effect of medication. continue one to one for safety and assistance. rosaline
[2016-08-11] MEDS: lamoTRIgine 100 mg Tablet PO SCH (08:54)
[2016-08-11] MEDS: ARIPiprazole 10 mg Tablet PO SCH (08:54)
[2016-08-11] MEDS: Venlafaxine XR 75 mg ER24 Capsule PO SCH (08:55)
--- NOTE | 2016-08-11 14:26 | DRSVH ---
PROCEDURE: X-RAY CHEST, TWO VIEWS ([id number]) INDICATIONS: Cough/wheezes TECHNIQUE: 2 views of the chest were acquired. COMPARISON: None. FINDINGS: Surgical changes and devices: None. Lungs and pleura: No pleural effusions or pneumothorax. Lungs are clear. Large nonreducible hiatal hernia. Mediastinum: Mediastinal contours are normal. Heart size is normal. Bones and chest wall: No suspicious bony abnormalities. Soft tissues appear unremarkable. IMPRESSION: No acute cardiopulmonary disease. Dictated by: Nikhil Henderson [facility] Interpreted: Jenn Pink MD on 08/11/2016 at 14:25 Transcribed by: SAMANTHA on 08/11/2016 at 14:26 Approved by: Jenn Pink MD, PhD on 08/11/2016 at 16:31
[2016-08-11 15:19] VITALS: PULSE 92; O2SAT 92
--- NOTE | 2016-08-11 17:39 | NUR ---
NURS note [id number] shift Orientation: x3. Mood: "I'm alright" Affect: Sad, concerned, withdrawn. Behavior: Pt morning in day room and out on patio. Spent much of the afternoon resting in her bed. Patient has been subdued likely related to respiratory difficulty. Thought processes: Continues with belief that she is being kicked out of the facility. PRN/Nursing Note: Pt has been coughing and wheezing much of day. Chest x-ray this AM. RT assessed respiratory status at 1500, decided not to do nebulizer treatment. Cough, wheezing worsened is PM called in RT consult at 1830, given albuterol via nebulizer. Addendum: 08/11/16 at 1849 by JAVIER TABOR RN Did not eat dinner r/t coughing, wheezing,
--- NOTE | 2016-08-11 17:49 | PCM.PNPSY ---
Subjective Date of Service Aug 11, 2016 Subjective The patient was brighter this morning and reported that her depression was improved and that she was somewhat optimistic about her future. Although not believing that she should go to a state hospital, she did not believe that she should live with her and instead should be somehow punished. The patient is ambulating better on the unit using a walker. The patient appeared more animated with good eye contact and was smiling at times. No tearful episodes were noted. The patient did have a significant cough and on physical examination appeared to have significant wheezes and increased breath sounds on the right mid and apical lung and the left apical lung dennis. No side effects reported. Sleep: 8.75 hours Appetite: Reports eating but still no appetite Suicidal and homicidal ideation: Still reports that she does not deserve to live a good life and should be punished. Denies homicidal ideation. Auditory hallucinations: Endorses, but quieter Visual hallucinations: Denies Other Psychotic Symptoms: N/A Anxiety/Depression: As above Current Medications Current Medications Aripiprazole 10 mg DAILY PO Last administered on 08/11/16 08:54; Admin Dose 10 MG; Start 08/10/16 at 08:30 Quetiapine Fumarate 50 mg HS PO Last administered on 08/10/16 20:13; Admin Dose 50 MG; Start 08/10/16 at 21:00 Mental Status Exam Vital Signs Vital Signs Date Time Temp Pulse Resp B/P Pulse Ox O2 Delivery O2 Flow Rate FiO2 08/11/16 15:19 92 92 Room Air Appearance: Neat/well groomed Attitude: Guarded Behavior: Overtly anxious, Other (improved eye contact occasional smiles) Affect: Restricted Mood: Depressed, Anxious, Fearful Thought Process/Associations: Goal Directed Speech Production: Paucity Speech Rate: Lags/Latency Speech Articulation: Other (soft) Thought Content: Negativistic, Perseveration Danger to Self/Suicidal Ideati: Passive, Plan (denies), Intent (denies) Danger to Others: None Delusions: Paranoid Hallucinations: Auditory (Endorses), Visual (Denies) Consciousness: Hyper-vigilant Orientation: Person, Place, Date, Situation Memory: Grossly Intact Estimate Intellectual Function: Average Attention/Concentration & Cogn: Impaired (but improving) Insight: Limited Judgement: Limited Mental Health Plan The patient is a 71-year-old white female with an over 40-year history of depression. Over the past month she has had several stressors relating to the illness of her who is her primary support and caregiver. As a result, she has had a relatively steady decline with increased depression culminating in suicidal ideation, recent suicide attempt, and cognitive impairment. Prior to admission she was only on Prozac and has now been cross tapered to venlafaxine with aripiprazole. She is having multiple symptoms of depression related to mood, sleep, interest, guilt, energy, concentration, anhedonia, and passive suicidal ideation. The patient's blood pressure has returned to normal. The patient appears to have had a significant improvement in mood over the previous days/weeks with good eye contact smiles and brighter affect. She still endorses significant depression. The patient also had a significant cough which appeared to be worsening and so a chest x-ray was ordered which was negative. The patient was given a nebulizer treatment. [place] I: 1. Major depressive disorder, severe, with psychosis. 2. Rule out bipolar one disorder, depressed with psychotic features. 3. Rule out cognitive disorder unspecified. [place] II: Deferred. [place] III: Osteoarthritis, asthma, chronic obstructive pulmonary disease. [place] IV: Moderate. [place] V: Global Assessment of Functioning equal to 35. Medications Aripiprazole 10 mg daily Lamotrigine 200 mg daily Melatonin 5 mg nightly Clonazepam 0.5 mg twice daily Quetiapine 100 at bedtime Venlafaxine XL 225 mg daily Treatments 1. The patient is encouraged to participate with group and milieu therapy. 2. The patient is encouraged to continue medications as prescribed. 3. The patient will meet with the treatment team on a daily basis to assess symptoms, side effects, and response to treatment. 4. The patient will continue to have a one-to-one with her episodically due to her increased risk for fall. 5. Continue aripiprazole 10 mg daily and titrate as tolerated 6. Continue venlafaxine 225 mg daily. 7. Discontinue quetiapine tomorrow. 8. Patient has a 90 day MR hearing scheduled for Monday to 08/12/16 Emerson Crain MD Aug 11, 2016 17:49
[2016-08-11 18:17] VITALS: PULSE 86; RESP 16; O2SAT 94
[2016-08-11 18:28] VITALS: BP 125/73; PULSE 87
--- NOTE | 2016-08-11 18:29 | NUR ---
Physical Therapy Instructor/Counselor: S: "How many rooms does [facility] have for women and how many rooms for men?" O: Patient slept 8.75 hours last night as per staff. She reports thoughts of wishing she was and doesn't deserve to live, but contracts for safety. She denies H/I. She reports hearing voices are quieter. She denies visual hallucinations. She did not rate depression and anxiety. [facility] authorized in-patient stay until 08/15/16, with extension request due 08/15/16. A: Patient is cooperative, guarded, depressed, restricted affect, paranoid, fearful, anxious, paranoid, limited insight, limited judgment. P: Follow care plan, coordinate out-patient providers.
--- NOTE | 2016-08-11 19:00 | NUR ---
[facility] Day Shift Pt affect and behavior unchanged from previous shifts. Pt maintained behavioral control throughout the shift. Pt affect appears mostly flat, occasionally distraught (though less so than noted on previous shifts). Pt spends most of the shift resting in her room or sitting quietly in the dining room. Pt is appropriate with staff and peers when active on the unit, but is not social. Pt appears less focused on DC throughout the shift. Pt did not participate in group activities throughout the shift. Pt attended all meals and ate approx 10% of breakfast and lunch. Pt ate approx 40% of dinner. Addendum: 08/11/16 at 1905 by SHANA SERVIN [facility] Pt attended all meals and ate approx 40-50% of all meals.
[2016-08-11] MEDS: diphenhydrAMINE 25 mg Capsule PO SCH (20:57)
--- NOTE | 2016-08-12 05:16 | NUR ---
Nursing Noc Zero c/o of SOB this shift. Ongoing URI reported over the last couple of days. Zero change in mentation affect or behavior. 1:1 sitter in use r/t previous GLF while transferring. Pt remains pleasant and self conscious about being here. Continue to monitor mood, behavior, emotional state and sleep time by 1:1 sitter. CP
--- NOTE | 2016-08-12 05:41 | NUR ---
Pt isolated to room much of evening. 1:1 for safety. Pt slept 0000-430. Pt observed every 15 minutes as ordered.
[2016-08-12] MEDS: Benzocaine-Menthol Lozenge 2/Pkg PO PRN (06:34)
[2016-08-12] MEDS: lamoTRIgine 100 mg Tablet PO SCH (09:11)
[2016-08-12] MEDS: Venlafaxine XR 75 mg ER24 Capsule PO SCH (09:11)
[2016-08-12] MEDS: ARIPiprazole 10 mg Tablet PO SCH (09:12)
[2016-08-12 16:50] VITALS: BP 144/88; PULSE 96; RESP 18
--- NOTE | 2016-08-12 18:32 | NUR ---
[facility] Day Shift Pt affect and behavior unchanged from previous shifts, with some notable improvements in memory and decreases in anxious behavior. Pt maintained behavioral control throughout the shift. Pt affect appears mostly flat. Pt spends most of the shift resting in her room or sitting quietly in the dining room. Pt is appropriate with staff and peers when active on the unit, but is not social. Pt appears less focused on DC throughout the shift. Pt did not participate in group activities throughout the shift. Pt attended all meals and ate approx 30-40% of all meals.
--- NOTE | 2016-08-12 18:49 | NUR ---
Nursing Dayshift: S: "The voices were telling me to hurry up and get out of the shower." O: Patient acknowledges AH with above statement. Anxiety and depression both "high". Denies VH and harmful thoughts. States having a better day earlier in the shift. No breakfast eaten. Lunch 25% and supper 15% consumed. 1:1 continues for safety of patient due to high falls risk. A: Quiet. Some interaction and groups. P: CPOC. Monitor mood and behavior.
--- NOTE | 2016-08-12 19:00 | NUR ---
[employer]/Counselor: S/O: Patient only slept 4.5 hours last night as per staff. She reports thoughts of wishing she was . She denies H/I. She reports voices are quieter. She denies visual hallucinations. Depression is 2/10 and anxiety is 2/10. A: Patient is cooperative, guarded, depressed, restricted affect, paranoid, fearful, anxious, paranoid, limited insight, limited judgment. P: Follow care plan, coordinate out-patient providers.
--- NOTE | 2016-08-12 19:11 | NUR ---
Pt took a shower and attended to ADL's.
--- NOTE | 2016-08-12 19:17 | PCM.PNPSY ---
Subjective Date of Service Aug 12, 2016 Subjective The patient was brighter this morning but still felt that she should be punished and unsure whether she should go to the street, to assisted, went to a mental hospital. The patient reported that she felt more stable on her feet and less sedated. She stated that she did not feel that she did not deserve to live with her . The patient's x-ray was negative and the patient responded well to nebulizer treatment. No side effects reported. Sleep: 4.5 hours Appetite: Reports eating but still no appetite Suicidal and homicidal ideation: Still reports that she does not deserve to live a good life and should be punished. Denies homicidal ideation. Auditory hallucinations: Endorses, but quieter Visual hallucinations: Denies Other Psychotic Symptoms: N/A Anxiety/Depression: As above Current Medications Current Medications Quetiapine Fumarate 50 mg HS PO Last administered on 08/11/16t 20:57; Admin Dose 50 MG; Start 08/10/16 at 21:00 Mental Status Exam Vital Signs Vital Signs Date Time Temp Pulse Resp B/P Pulse Ox O2 Delivery O2 Flow Rate FiO2 08/12/16 16:50 36.1 96 18 144/88 Appearance: Neat/well groomed Attitude: Guarded Behavior: Overtly anxious, Other (improved eye contact ) Affect: Restricted Mood: Depressed, Anxious, Fearful Thought Process/Associations: Goal Directed Speech Production: Paucity Speech Rate: Lags/Latency Speech Articulation: Other (soft) Thought Content: Negativistic, Perseveration Danger to Self/Suicidal Ideati: Passive, Plan (denies), Intent (denies) Danger to Others: None Delusions: Paranoid Hallucinations: Auditory (Endorses), Visual (Denies) Consciousness: Hyper-vigilant Orientation: Person, Place, Date, Situation Memory: Grossly Intact Estimate Intellectual Function: Average Attention/Concentration & Cogn: Impaired (but improving) Insight: Limited Judgement: Limited Mental Health Plan The patient is a 71-year-old white female with an over 40-year history of depression. Over the past month she has had several stressors relating to the illness of her who is her primary support and caregiver. As a result, she has had a relatively steady decline with increased depression culminating in suicidal ideation, recent suicide attempt, and cognitive impairment. Prior to admission she was only on Prozac and has now been cross tapered to venlafaxine with aripiprazole. She is having multiple symptoms of depression related to mood, sleep, interest, guilt, energy, concentration, anhedonia, and passive suicidal ideation. The patient's blood pressure has returned to normal. The patient appears to have had a significant improvement in mood over the previous days/weeks with good eye contact smiles and brighter affect although today she has fallen back on themes of needing to be punished. The patient also had a significant cough which appeared to be worsening and so a chest x-ray was ordered which was negative. The patient was given a nebulizer treatment. If the patient does not respond with further improvement will consider increasing aripiprazole. Patient has 90 day less restrictive order with 2 weeks inpatient. Sche[place] Scheller I: 1. Major depressive disorder, severe, with psychosis. 2. Rule out bipolar one disorder, depressed with psychotic features. 3. Rule out cognitive disorder unspecified. [place] II: Deferred. [place] III: Osteoarthritis, asthma, chronic obstructive pulmonary disease. [place] IV: Moderate. [place] V: Global Assessment of Functioning equal to 35. Medications Aripiprazole 10 mg daily Lamotrigine 200 mg daily Melatonin 5 mg nightly Clonazepam 0.5 mg twice daily Quetiapine 50 at bedtime Venlafaxine XL 225 mg daily Treatments 1. The patient is encouraged to participate with group and milieu therapy. 2. The patient is encouraged to continue medications as prescribed. 3. The patient will meet with the treatment team on a daily basis to assess symptoms, side effects, and response to treatment. 4. The patient will continue to have a one-to-one with her episodically due to her increased risk for fall. 5. Continue aripiprazole 10 mg daily and titrate as tolerated 6. Continue venlafaxine 225 mg daily. 7. Discontinue quetiapine 8. Patient received a 90 day less restrictive order with 14 days inpatient on 08/12/2016 Emerson Crain MD Aug 12, 2016 19:17
[2016-08-12] MEDS: diphenhydrAMINE 25 mg Capsule PO SCH (21:10)
--- NOTE | 2016-08-13 04:59 | NUR ---
Pt isolated to room much of evening. 1:1 for safety. Asleep 9895. Pt observed every 15 minutes as ordered.
--- NOTE | 2016-08-13 05:56 | NUR ---
Nursing Note [id number] S: "I am doing great, almost perfect". O: Patient interacting with peers, visible on unit. 5h hrs sleep. A: Patient almost overly bright, cooperative, positive references-future oriented. P: Monitor for response to treatment. Q15 minute safety checks for safety. Follow plan of care.
[2016-08-13] MEDS: Venlafaxine XR 75 mg ER24 Capsule PO SCH (09:34)
[2016-08-13] MEDS: lamoTRIgine 100 mg Tablet PO SCH (09:35)
[2016-08-13] MEDS: ARIPiprazole 10 mg Tablet PO SCH (09:35)
[2016-08-13] MEDS: Benzocaine-Menthol Lozenge 2/Pkg PO PRN (09:49)
--- NOTE | 2016-08-13 15:08 | NUR ---
Evaluation completed. Please go to "Notes" then click on "Assessments and Notes" (bottom left corner of screen). Then select appropriate discipline tab on top of screen.
--- NOTE | 2016-08-13 17:44 | NUR ---
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 She denies S/I and H/I. She denies auditory and visual hallucinations. Depression is 8/10 and anxiety is 0/10. Patient stated, "I ate real good this morning." A: Patient is cooperative, guarded, depressed, restricted affect, paranoid, fearful, anxious, paranoid, limited insight, limited judgment. P: Follow care plan, coordinate out-patient providers.
--- NOTE | 2016-08-13 17:50 | PCM.PNPSY ---
Subjective Date of Service Aug 13, 2016 Subjective The patient reports having an ongoing cough which disturbed her sleep. She reported hearing a rifle shooting off and her sister screaming. She is unsure whether her hallucinations have improved but her mood is improved over earlier in the week. She is not sure where she would like to go when she discharges at this time. She does not feel that she needs to be in the longterm or the [facility] however. She stated she was initially in a good mood this morning and now is having a somewhat better. She was assessed by physical therapy who indicated that the patient needs a walker and a one-to-one due to falls risk at this time. On physical examination the patient was noted to have moderate cogwheeling and tremor. Sleep: 8+ hours, but the patient reported "bad dreams." Appetite: "A real good." Suicidal and homicidal ideation: Denies Auditory hallucinations: Endorses, as above Visual hallucinations: Denies Other Psychotic Symptoms: N/A Anxiety/Depression: As above Mental Status Exam Appearance: Neat/well groomed Attitude: Guarded Behavior: Overtly anxious, Other (good eye contact affect brighter) Affect: Restricted (but much brighter) Mood: Depressed, Anxious Thought Process/Associations: Goal Directed Speech Production: Paucity Speech Rate: Lags/Latency Speech Articulation: Other (soft) Thought Content: Negativistic, Perseveration Danger to Self/Suicidal Ideati: None Danger to Others: None Delusions: Paranoid (mild) Hallucinations: Auditory (Endorses), Visual (Denies) Consciousness: Hyper-vigilant Orientation: Person, Place, Date, Situation Memory: Grossly Intact Estimate Intellectual Function: Average Attention/Concentration & Cogn: Impaired (but improving) Insight: Limited Judgement: Limited Mental Health Plan The patient is a 71-year-old white female with an over 40-year history of depression. Over the past month she has had several stressors relating to the illness of her who is her primary support and caregiver. As a result, she has had a relatively steady decline with increased depression culminating in suicidal ideation, recent suicide attempt, and cognitive impairment. Prior to admission she was only on Prozac and has now been cross tapered to venlafaxine with aripiprazole. She is having multiple symptoms of depression related to mood, sleep, interest, guilt, energy, concentration, anhedonia, and passive suicidal ideation. The patient's blood pressure has returned to normal. The patient appears to have had a significant improvement in mood over the previous days/weeks with good eye contact smiles and brighter affect although today she has fallen back on themes of needing to be punished. The patient also had a significant cough which appeared to be worsening and so a chest x-ray was ordered which was negative. The patient was given a nebulizer treatment. The patient will be prescribed benztropine low dose to address cogwheeling. If auditory hallucinations have not improved by the morning, aripiprazole be increased to 15 mg. The patient will remain on one-to-one due to falls risk. Patient has 90 day less restrictive order with 2 weeks inpatient. Bet[place] Bethel I: 1. Major depressive disorder, severe, with psychosis. 2. Rule out bipolar one disorder, depressed with psychotic features. 3. Rule out cognitive disorder unspecified. [place] II: Deferred. [place] III: Osteoarthritis, asthma, chronic obstructive pulmonary disease. [place] IV: Moderate. [place] V: Global Assessment of Functioning equal to 35. Medications Aripiprazole 10 mg daily Lamotrigine 200 mg daily Melatonin 5 mg nightly Clonazepam 0.5 mg twice daily Quetiapine 50 at bedtime Venlafaxine XL 225 mg daily Treatments 1. The patient is encouraged to participate with group and milieu therapy. 2. The patient is encouraged to continue medications as prescribed. 3. The patient will meet with the treatment team on a daily basis to assess symptoms, side effects, and response to treatment. 4. The patient will continue to have a one-to-one with her due to her increased risk for fall. 5. Continue aripiprazole 10 mg daily and titrate as tolerated 6. Continue venlafaxine 225 mg daily. 7. Benztropine 0.5 mg twice daily 8. Patient received a 90 day less restrictive order with 14 days inpatient on 08/12/2016 Emerson Crain MD Aug 13, 2016 17:50
--- NOTE | 2016-08-13 18:29 | NUR ---
Nursing Dayshift: S: "Good morning Prosper." O: Patient up at start of shift. Greeted this staff appropriately a few times this shift. Appetite improved eating well at both breakfast and lunch. Ate 25% of supper. 1:1 continues due to poor gate and history of falls on the unit. PT consult today completed. See PT note. No c/o harmful thoughts or hallucinations. A: More animated. Smiling more. P: CPOC. Monitor mood and behavior.
[2016-08-13 19:51] VITALS: BP 90/65; PULSE 92; RESP 18
[2016-08-13] MEDS: diphenhydrAMINE 25 mg Capsule PO SCH (20:33)
--- NOTE | 2016-08-13 20:59 | NUR ---
OBSERVATIONS 1100 TO 2130 Pt was isolative for most of the shift spending much of the day in room or reading in the dining area. Pt did not express to this A delusions that were previously made apparent. Pt appeared more easily fatigued and to have more trouble with respiration during physical activity. Pt appeared to have positive visit with . Pt had PT evaluation. Maintained Q15 safety checks as directed.
--- NOTE | 2016-08-14 05:13 | NUR ---
Pt isolated to room much of evening. 1:1 for safety. Asleep 2100. Pt observed every 15 minutes as ordered.
--- NOTE | 2016-08-14 05:57 | NUR ---
Nursing Note [id number] S/O: Patient in bed entire shift. Woke to take scheduled medications without difficulty. Patient failed physical therapy evaluation earlier today. 1:1 sitter continues due to falls risk. 9+ hrs sleep. P: Monitor for response to treatment. Q15 minute safety checks for safety. Follow plan of care.
[2016-08-14] MEDS: ARIPiprazole 10 mg Tablet PO SCH (07:58)
[2016-08-14] MEDS: lamoTRIgine 100 mg Tablet PO SCH (07:58)
[2016-08-14] MEDS: Venlafaxine XR 75 mg ER24 Capsule PO SCH (07:58)
[2016-08-14 09:00] VITALS: BP 115/72; PULSE 81; RESP 19
[2016-08-14] MEDS: Albuterol 2.5 mg/3 mL Inhalation Solution NEB PRN ×2 (10:35→22:12)
--- NOTE | 2016-08-14 16:25 | PCM.PNPSY ---
Subjective Date of Service Aug 14, 2016 Subjective The patient reported having "not the best morning." She stated she was still having difficulty with her cough and was agreeable to a nebulizer. The patient denied auditory hallucinations last night or this morning. She stated that she did not feel that she belonged in a state hospital or a [facility] but was not sure where she belonged. She did not feel she was ready to return home at this time. The patient was again seen by physical therapy who recommended that the patient continue with a one-to-one given her fall risk. Given PT assessment of her gait as well as the reports of her last night it is likely that she is suffering from primary Parkinson's disease. The patient was agreeable to going to a neurology appointment upon discharge to have assessment. She had no significant change in cogwheeling or dystonia with low-dose benztropine. We discussed using amantadine to reduce symptoms and the patient was agreeable. Sleep: 9+ hours Appetite: "good." Suicidal and homicidal ideation: Denies Auditory hallucinations: Denies Visual hallucinations: Denies Other Psychotic Symptoms: N/A Anxiety/Depression: As above Current Medications Current Medications Benztropine Mesylate 0.5 mg BID PO Last administered on 08/14/16t 07:59; Admin Dose 0.5 MG; Start 08/13/16 at 20:30 Mental Status Exam Vital Signs Vital Signs Date Time Temp Pulse Resp B/P Pulse Ox O2 Delivery O2 Flow Rate FiO2 08/14/16 09:41 Room Air Appearance: Neat/well groomed Attitude: Guarded Behavior: Overtly anxious, Other (good eye contact affect brighter) Affect: Restricted (but much brighter) Mood: Depressed, Anxious Thought Process/Associations: Goal Directed Speech Production: Paucity Speech Rate: Lags/Latency Speech Articulation: Other (soft) Thought Content: Negativistic, Perseveration Danger to Self/Suicidal Ideati: None Danger to Others: None Delusions: Paranoid (mild) Hallucinations: Auditory (Denies), Visual (Denies) Consciousness: Hyper-vigilant Orientation: Person, Place, Date, Situation Memory: Grossly Intact Estimate Intellectual Function: Average Attention/Concentration & Cogn: Impaired (but improving) Insight: Limited Judgement: Limited Mental Health Plan The patient is a 71-year-old white female with an over 40-year history of depression. Over the past month she has had several stressors relating to the illness of her who is her primary support and caregiver. As a result, she has had a relatively steady decline with increased depression culminating in suicidal ideation, recent suicide attempt, and cognitive impairment. Prior to admission she was only on Prozac and has now been cross tapered to venlafaxine with aripiprazole. She is having multiple symptoms of depression related to mood, sleep, interest, guilt, energy, concentration, anhedonia, and passive suicidal ideation. The patient's blood pressure has returned to normal. The patient appears to have had a significant improvement in mood over the previous days/weeks with good eye contact smiles and brighter affect although today she has fallen back on themes of needing to be punished. The patient also had a significant cough which appeared to be worsening and so a chest x-ray was ordered which was negative. The patient has been treated with nebulizers which is improved her breathing and cough. The patient continues to have cogwheeling and rigidity, combined live with her festinating gait date and difficulty initiating and stopping movement, it is likely that patient is suffering from primary Parkinson's disease. The patient would likely be better treated with amantadine for her Parkinson's as well as dystonia. The patient appears to be responding well to treatment and is less pessimistic and more future oriented. Has auditory hallucinations appear to have improved, aripiprazole does not appear to be needed to be increased. The patient will remain on one-to-one due to falls risk. Patient has 90 day less restrictive order with 2 weeks inpatient. [place] Park [place] I: 1. Major depressive disorder, severe, with psychosis. 2. Rule out bipolar one disorder, depressed with psychotic features. 3. Rule out cognitive disorder unspecified. [place] II: Deferred. [place] III: Osteoarthritis, asthma, chronic obstructive pulmonary disease. Probable Parkinson's disease. [place] IV: Moderate. [place] V: Global Assessment of Functioning equal to 35. Medications Aripiprazole 10 mg daily Lamotrigine 200 mg daily Melatonin 5 mg nightly Clonazepam 0.5 mg twice daily Quetiapine 50 at bedtime Venlafaxine XL 225 mg daily Treatments 1. The patient is encouraged to participate with group and milieu therapy. 2. The patient is encouraged to continue medications as prescribed. 3. The patient will meet with the treatment team on a daily basis to assess symptoms, side effects, and response to treatment. 4. The patient will continue to have a one-to-one with her due to her increased risk for fall. 5. Continue aripiprazole 10 mg daily and titrate as tolerated 6. Continue venlafaxine 225 mg daily. 7. Amantadine 100 mg twice daily 8. The patient will be ordered a walker with 4 wheels as recommended by physical therapy. 9. The patient will be referred to neurology on discharge for assessment for Parkinson's. 10. Patient received a 90 day less restrictive order with 14 days inpatient on 08/12/2016 Emerson Crain MD Aug 14, 2016 16:25
--- NOTE | 2016-08-14 16:37 | NUR ---
Nursing Dayshift: S: "I'm feeling okay but not as good as yesterday." O: Patient continues on a 1:1 for high falls risk per RT. Fair appetite today. Brighter affect as the day progressed. Noted to be smiling and giggling with staff and peers. here at present. Pleasant attitude. Eating pizza and watching the Superbowl with peers. A: Brighter today. P: CPOC. Monitor mood and behavior.
--- NOTE | 2016-08-14 20:56 | NUR ---
Obs Dayshift [id number] Pt cont's w/ 1:1 for fall risk. Pt is polite, calm, quiet. Cont's to have AH. Pt had a long visit w/ , sister and [id number]. Pt was seen smiling often when w/ family. Sat out in the milieu for all meals. Participated in art group. Pt has a cough, and appears slightly uncomfortable, napping on and off through the day. Went to bed early. Ok ADL's, Ok meals
[2016-08-14] MEDS: diphenhydrAMINE 25 mg Capsule PO SCH (21:16)
--- NOTE | 2016-08-14 22:12 | NUR ---
Nurses PRN Patient received Albuterol 2.5mg via nebulizer for SOB and a loose unproductive cough. Her lung sounds were clear but diminished lower lobes bilaterally. Fluids pushed and encouraged, HOB elevated. Will continue to monitor and maintain 1:1 for safety and support.
--- NOTE | 2016-08-15 06:13 | NUR ---
Nursing Noc Pt continues w/ 1:1 sitter for safety and fall prevention. She needs frequent redirection. Using a FWW w/ standby assistance. Pt pleasant and enjoyed interaction with both her and her female peers. Took scheduled medication without difficulty. Sleep was restless and broken through the night. Broken sleep of 3 hours.
[2016-08-15 08:30] VITALS: BP 115/82; PULSE 68; RESP 16
[2016-08-15] MEDS: Venlafaxine XR 75 mg ER24 Capsule PO SCH (08:53)
[2016-08-15] MEDS: lamoTRIgine 100 mg Tablet PO SCH (08:53)
[2016-08-15] MEDS: ARIPiprazole 10 mg Tablet PO SCH (08:55)
--- NOTE | 2016-08-15 16:24 | NUR ---
Nursing: Day shift: 0700 to 1400 O: Roma has alternated between being in her room lying on the bed and being in the dining room. She has had 1:1 staff observation due to her fall risk. Physical therapy worked with pt and recommended she wear a gait belt when ambulating. Gait belt applied. When out in the DR, Roma has colored pictures with peers. 1:1 staff reported that Roma almost fell at noon when returning to bed from . BP at 1230 was 113/65, pulse, 80. Affet iw brighter. Smiling and making comments with a smile. Takes all scheduled meds as offered. A: Mobility problems. Fall risk continues Still needed 1;1 observation. Improving in responsiveness. Less depressed. P: Continue to assess for rmed. effectiveness.
--- NOTE | 2016-08-15 19:34 | NUR ---
Observations 0900 to 2130 Pt had 1:1 throughout the shift due to being a fall risk. Pt affect and mood was improved. Pt appeared bright at times, smiling and joking around. Pt rested in bed a good portion of the day. Pt speech and eye contact was improved. Pt declined to attend community meeting and did not set a daily goal. Pt attended group and did some coloring in [employer] and in the group. Pt attended meals in [employer] and ate approximately 50-75% of meals. Pt was offered snack but she refused. Pt maintained behavior throughout the shift. Pt came to visit her and it appeared to go well. Pt was observed every 15 minutes throughout the shift as ordered.
--- NOTE | 2016-08-15 21:19 | PCM.PNPSY ---
Subjective Date of Service Aug 15, 2016 Subjective The patient denied auditory hallucinations last night or this morning with none for the last 2 days. She stated that she did not feel that she belonged in a state hospital or a correction but was not sure when she would be ready to return home, "If he will take me home." She did not feel she was ready to return home at this time. The patient was again seen by physical therapy who recommended that the patient continue with a one-to-one given her fall risk. The patient's tremor and ability to change direction were much improved with amantadine. The patient was agreeable to going to a neurology appointment upon discharge to have assessment. Cogwheeling much improved today. Sleep: broken 3 hours Appetite: "getting better a little bit at a time." Suicidal and homicidal ideation: Denies Auditory hallucinations: Denies Visual hallucinations: Denies Other Psychotic Symptoms: N/A Anxiety: "a little better." Depression: 11/16 Current Medications Current Medications Amantadine HCl 100 mg BID PO Last administered on 08/15/16t 08:55; Admin Dose 100 MG; Start 08/14/16 at 20:30 Mental Status Exam Vital Signs Vital Signs Date Time Temp Pulse Resp B/P Pulse Ox O2 Delivery O2 Flow Rate FiO2 08/15/16 15:19 Room Air Appearance: Neat/well groomed Attitude: Pleasant, Cooperative Behavior: Other (good eye contact affect brighter) Affect: Restricted (but much brighter) Mood: Depressed, Anxious Thought Process/Associations: Goal Directed Speech Production: Paucity Speech Rate: Lags/Latency Speech Articulation: Other (soft) Thought Content: Negativistic, Perseveration Danger to Self/Suicidal Ideati: None Danger to Others: None Hallucinations: Auditory (Denies), Visual (Denies) Consciousness: Hyper-vigilant Orientation: Person, Place, Date, Situation Memory: Grossly Intact Estimate Intellectual Function: Average Attention/Concentration & Cogn: Impaired (but improving) Insight: Limited Judgement: Limited Mental Health Plan The patient is a 71-year-old white female with an over 40-year history of depression. Over the past month she has had several stressors relating to the illness of her who is her primary support and caregiver. As a result, she has had a relatively steady decline with increased depression culminating in suicidal ideation, recent suicide attempt, and cognitive impairment. Prior to admission she was only on Prozac and has now been cross tapered to venlafaxine with aripiprazole. She is having multiple symptoms of depression related to mood, sleep, interest, guilt, energy, concentration, anhedonia, and passive suicidal ideation. The patient's blood pressure has returned to normal. The patient appears to have had a significant improvement in mood over the previous days/weeks with good eye contact smiles and brighter affect although today she has fallen back on themes of needing to be punished. The patient has been treated with nebulizers which is improved her breathing and cough. The patient continues to have cogwheeling and rigidity, combined live with her festinating gait date and difficulty initiating and stopping movement, it is likely that patient is suffering from primary Parkinson's disease. The patient appears to have improved with amantadine with reduction in tremor and difficulty change movement. The patient appears to be responding well to treatment and is less pessimistic and more future oriented. Her auditory hallucinations appear to have improved, aripiprazole does not appear to need to be increased. The patient will remain on one-to-one due to falls risk. Patient has 90 day less restrictive order with 2 weeks inpatient but may be ready for discharge sooner. [place] I: 1. Major depressive disorder, severe, with psychosis. 2. Rule out bipolar one disorder, depressed with psychotic features. 3. Rule out cognitive disorder unspecified. [place] II: Deferred. [place] III: Osteoarthritis, asthma, chronic obstructive pulmonary disease. Probable Parkinson's disease. [place] IV: Moderate. [place] V: Global Assessment of Functioning equal to 35. Medications Aripiprazole 10 mg daily Lamotrigine 200 mg daily Melatonin 5 mg nightly Clonazepam 0.5 mg twice daily Amantadine 100mg po twice daily Quetiapine 50 at bedtime Venlafaxine XL 225 mg daily Treatments 1. The patient is encouraged to participate with group and milieu therapy. 2. The patient is encouraged to continue medications as prescribed. 3. The patient will meet with the treatment team on a daily basis to assess symptoms, side effects, and response to treatment. 4. The patient will continue to have a one-to-one with her due to her increased risk for fall. 5. Continue aripiprazole 10 mg daily and titrate as tolerated 6. Continue venlafaxine 225 mg daily. 7. Amantadine 100 mg twice daily 8. The patient will be ordered a walker with 4 wheels as recommended by physical therapy. 9. The patient will be referred to neurology on discharge for assessment for Parkinson's. 10. Decrease clonazepam to 0.5mg at bedtime to help normalize sleep. 11. Patient received a 90 day less restrictive order with 14 days inpatient on 08/12/2016 Emerson Crain MD Aug 15, 2016 21:19
[2016-08-15] MEDS: diphenhydrAMINE 25 mg Capsule PO SCH (21:25)
--- NOTE | 2016-08-16 06:49 | NUR ---
Nursing Noc Pt continues w/ 1:1 sitter for safety and fall prevention. She needs frequent redirection. Using a FWW w/ standby assistance. Pt pleasant with both peers and staff. Took scheduled medication and retired to bed by 1999. Improved sleep through the night with no noted distress or awakening per protocol checks. Total sleep over 9.5+ hours.
[2016-08-16] MEDS: ARIPiprazole 10 mg Tablet PO SCH (08:06)
[2016-08-16] MEDS: Venlafaxine XR 75 mg ER24 Capsule PO SCH (08:06)
[2016-08-16] MEDS: lamoTRIgine 100 mg Tablet PO SCH (08:06)
[2016-08-16 10:04] VITALS: PULSE 88; RESP 18; O2SAT 92
[2016-08-16] MEDS: Albuterol 2.5 mg/3 mL Inhalation Solution NEB PRN (10:04)
[2016-08-16 10:46] VITALS: BP 100/63; PULSE 87; RESP 16
[2016-08-16] MEDS: hydrOXYzine Pamoate 25 mg Capsule PO PRN (15:03)
[2016-08-16 15:59] VITALS: BP 101/62; PULSE 90
--- NOTE | 2016-08-16 16:12 | NUR ---
Nursing: Day shift 0700 to 1900 S: I don't want anyone waiting on me. O: Roma Has had 1:1 staff observation throughout the day due to her level of fall risk. She is unsteady as she stands. Has difficulty maneuvering FWwalker and moving her feet as she walks. Has a gait belt in place when ambulating. She received instruction on how to use a 4 wheel walker from PT. Hand has noticeable tremor, especially when she tried to bring the cup to her mouth. Expression earlier in shift was pleasant, even smiling at times. However, later in shift, she sits staring blankly. Was tearful about 1400. Although she denied hearing voices to keno writer/runner, she made comment to other staff that the voices were telling her she was no good. Takes scheduled meds as offered. PRN med: Complained of tightness breathing and received Accuneb inhalation treatment at 100. Was offered and accepted Vistaril 50 mg at 1500 for anxiety control at the time she was crying. Appears calmer at 1700. ADL's: Showered. Adequate fluid intake including ensure. A: Depressed and delusional but less so than on admission. Mobility/falls continue as a problem. P: Continue 1:1 for patient safety. Addendum: 08/16/16 at 1713 by YAEL HALL RN Amended: Links added.
--- NOTE | 2016-08-16 17:41 | NUR ---
Observations [id number] Pt was asleep upon start of shift. She continues to have difficulty walking and is still using her walker. Pt appeared to be very depressed and negative. Pt continued to ask where she was going, as if she would be leaving today. Pt stated to this blurb writer "why don't I just shoot myself in the head...then everything would be better." Pt attended meals, eating an average of 50%. She took a shower and did attend groups, coloring. Pt was friendly with staff and peers. She spent more time in her room today then in previous days, at times crying. Pt continues to be monitored every 15 minutes as directed.
--- NOTE | 2016-08-16 20:04 | NUR ---
Wellness Trainer/Counselor: S: "I'm not very good. My whole world is falling apart." O: Patient slept 9.5+ hours last night as per staff. She denies S/I and H/I. She denies auditory and visual hallucinations. However, patient states that the voices were loud earlier this morning and the voices made her cry. A: Patient is cooperative, guarded, depressed, restricted affect, paranoid, fearful, anxious, paranoid, limited insight, limited judgment. P: Follow care plan, coordinate out-patient providers.
--- NOTE | 2016-08-16 20:17 | PCM.PNPSY ---
Subjective Date of Service Aug 16, 2016 Subjective The patient reports that she had the return of auditory hallucinations for a very brief time this morning and that made her feel very despondent. "I am not feeling very good ... My whole world is falling apart." After discussing that this it only occurred briefly and in the context of much worse symptoms earlier in the course of her treatment, her mood improved somewhat. The patient was also upset about not having seen her son as he is uncomfortable with her in the hospital. The patient's tremor appears unchanged from yesterday but significantly improved over several days ago. She reports that her tremor began shortly after [place]. Sleep: 9.5+ hours Appetite: "A little bit." Suicidal and homicidal ideation: Denies Auditory hallucinations: Endorses briefly as above Visual hallucinations: Denies Other Psychotic Symptoms: N/A Anxiety: Endorses but cannot quantify Depression: Reports depression about not seeing her son Leon Current Medications Current Medications Amantadine HCl 100 mg BID PO Last administered on 08/16/16t 08:06; Admin Dose 100 MG; Start 08/14/16 at 20:30 Mental Status Exam Vital Signs Vital Signs Date Time Temp Pulse Resp B/P Pulse Ox O2 Delivery O2 Flow Rate FiO2 08/16/16 15:59 90 101/62 08/16/16 15:37 Room Air Appearance: Neat/well groomed Attitude: Pleasant, Cooperative Behavior: Other (good eye contact affect brighter) Affect: Restricted (but much brighter) Mood: Depressed, Anxious Thought Process/Associations: Goal Directed Speech Production: Paucity Speech Rate: Lags/Latency Speech Articulation: Other (soft) Thought Content: Negativistic, Perseveration Danger to Self/Suicidal Ideati: None Danger to Others: None Hallucinations: Auditory (endorses briefly this morning), Visual (Denies) Consciousness: Hyper-vigilant Orientation: Person, Place, Date, Situation Memory: Grossly Intact Estimate Intellectual Function: Average Attention/Concentration & Cogn: Impaired (but improving) Insight: Limited Judgement: Limited Mental Health Plan The patient is a 71-year-old white female with an over 40-year history of depression. Over the past month she has had several stressors relating to the illness of her who is her primary support and caregiver. As a result, she has had a relatively steady decline with increased depression culminating in suicidal ideation, recent suicide attempt, and cognitive impairment. Prior to admission she was only on Prozac and has now been cross tapered to venlafaxine with aripiprazole. She is having multiple symptoms of depression related to mood, sleep, interest, guilt, energy, concentration, anhedonia, and passive suicidal ideation. The patient's blood pressure has returned to normal. The patient appears to have had a significant improvement in mood over the previous days/weeks with good eye contact smiles and brighter affect although today she has fallen back on themes of needing to be punished. The patient has been treated with nebulizers which is improved her breathing and cough. The patient continues to have cogwheeling and rigidity, combined with her festinating gait date and difficulty initiating and stopping movement, it is likely that patient is suffering from primary Parkinson's disease. The patient appears to have improved with amantadine with reduction in tremor and difficulty change movement. The patient appears to be responding well to treatment and is less pessimistic and more future oriented. Her auditory hallucinations appear to have improved, although she had a brief episode of hallucinations this morning. Aripiprazole does not appear to need to be increased at this time, but if symptoms persist this will be addressed. The patient will remain on one-to-one due to falls risk. Patient has 90 day less restrictive order with 2 weeks inpatient but may be ready for discharge sooner. [place] I: 1. Major depressive disorder, severe, with psychosis. 2. Rule out bipolar one disorder, depressed with psychotic features. 3. Rule out cognitive disorder unspecified. [place] II: Deferred. [place] III: Osteoarthritis, asthma, chronic obstructive pulmonary disease. Probable Parkinson's disease. [place] IV: Moderate. [place] V: Global Assessment of Functioning equal to 35. Medications Aripiprazole 10 mg daily Lamotrigine 200 mg daily Melatonin 5 mg nightly Clonazepam 0.5 mg twice daily Amantadine 100mg po twice daily Quetiapine 50 at bedtime Venlafaxine XL 225 mg daily Treatments 1. The patient is encouraged to participate with group and milieu therapy. 2. The patient is encouraged to continue medications as prescribed. 3. The patient will meet with the treatment team on a daily basis to assess symptoms, side effects, and response to treatment. 4. The patient will continue to have a one-to-one with her due to her increased risk for fall. 5. Continue aripiprazole 10 mg daily and titrate as tolerated 6. Continue venlafaxine 225 mg daily. 7. Amantadine 100 mg twice daily 8. The patient will be ordered a walker with 4 wheels as recommended by physical therapy. 9. The patient will be referred to neurology on discharge for assessment for Parkinson's. 10. Decrease clonazepam to 0.5mg at bedtime to help normalize sleep. 11. Patient received a 90 day less restrictive order with 14 days inpatient on 08/12/2016 Emerson Crain MD Aug 16, 2016 20:17
[2016-08-16] MEDS: diphenhydrAMINE 25 mg Capsule PO SCH (21:22)
--- NOTE | 2016-08-17 05:50 | NUR ---
NURSING NOTE 7a-7p Pt c/t be a high fall risk and need 1;1 sitter. Using gait belt and walker to assist with ambulation. Pt med complaint and eating meals. Pt appeared to have a brighter affect and was laughing and making jokes while being assisted to the BR. Pt noted asleep 2029 and slept most of night, awoke at 0530 to use restroom. No PRN's given on shift, 1:1 outside of pt room and bed alarm on. WCTM sleep, safety, behavior
[2016-08-17] MEDS: Venlafaxine XR 75 mg ER24 Capsule PO SCH (08:44)
[2016-08-17] MEDS: lamoTRIgine 100 mg Tablet PO SCH (08:44)
[2016-08-17] MEDS: ARIPiprazole 10 mg Tablet PO SCH (08:44)
--- NOTE | 2016-08-17 13:44 | NUR ---
Nursing Note [id number] Behavior S/O: Pt out of room for meals & activities with 1:1 sitter. Pt con't to be at risk for falls d/t unsteady on feet even with walker. Pt has tremulous affect. Barely responds to environment. Minimal eye contact. Little verbalization even when asking questions. Attending groups. She didn't have a goal today. Pleasant & cooperative with cares. B/P low at 92/52. Pulse was 87. A: Pt is becoming more withdrawn. Condition is worsening. P: Provide supportive environment. Monitor medications & effects.
[2016-08-17 15:33] VITALS: BP 92/52; PULSE 87
[2016-08-17] MEDS: LORazepam 0.5 mg Tablet PO PRN (17:12)
--- NOTE | 2016-08-17 17:13 | NUR ---
Nurses PRN Patient received Ativan 0.5mg for increasing anxiety,tearfulness and paranoid delusions that she is going to be killed,will assess response.
--- NOTE | 2016-08-17 19:33 | NUR ---
Obs Dayshift [id number] Pt started the day tired, sad, tearful. AH telling her bad things/yelling at her. Pt took a nap, got up later and participated in group, laughing, engaging w/ peers and staff, played scrabble, good eye contact. In the evening just before dinner she became quiet, staring off, tearful, not hungry for dinner, loud voices. visited and was able to get her to eat a little, smile and do a little walking w/ assistance and new walker. Pt has ok ADL's, Good meals.
[2016-08-17] MEDS: diphenhydrAMINE 25 mg Capsule PO SCH (20:05)
--- NOTE | 2016-08-17 20:19 | PCM.PNPSY ---
Subjective Date of Service Aug 17, 2016 Subjective The patient reported that it "started out to be a good day ... My is not going to accept me at home." The patient had difficulty discussing her inner feelings and appeared to be consistent with her earlier catatonia. She was given clonazepam 0.5 mg in the morning and by the evening was much brighter with improved mood. Although the patient reports her tremor began shortly after [place] it appears to been present before that and her difficulty walking began approximately 5 years ago according to her . The patient' s tremor is improved and she appears to have an easier time getting food and cups to her mouth. Sleep: 8+ hours Appetite: "I eat a little bit." Suicidal and homicidal ideation: Denies Auditory hallucinations: Endorses briefly this morning Visual hallucinations: Denies Other Psychotic Symptoms: N/A Anxiety: 02/16 Depression: "Hard to read." Current Medications Current Medications Clonazepam 0.5 mg BID PO Last administered on 08/17/16 20:06; Admin Dose 0.5 MG ; Start 08/17/16 at 10:40 Clonazepam 0.5 mg HS PO Last administered on 08/16/16 21:22; Admin Dose 0.5 MG; Start 08/16/16 at 21:00; Stop 08/17/16 at 10:41; Status DC Mental Status Exam Vital Signs Vital Signs Date Time Temp Pulse Resp B/P Pulse Ox O2 Delivery O2 Flow Rate FiO2 08/17/16 16:04 Room Air 08/17/16 15:33 87 92/52 Appearance: Neat/well groomed Attitude: Pleasant, Cooperative Behavior: Other (good eye contact affect more restricted) Affect: Restricted (but much brighter) Mood: Depressed, Anxious Thought Process/Associations: Goal Directed Speech Production: Paucity Speech Rate: Lags/Latency Speech Articulation: Other (soft) Thought Content: Negativistic, Perseveration Danger to Self/Suicidal Ideati: None Danger to Others: None Hallucinations: Auditory (endorses briefly this morning), Visual (Denies) Consciousness: Hyper-vigilant Orientation: Person, Place, Date, Situation Memory: Grossly Intact Estimate Intellectual Function: Average Attention/Concentration & Cogn: Impaired (but improving) Insight: Limited Judgement: Limited Mental Health Plan The patient is a 71-year-old white female with an over 40-year history of depression. Over the past month she has had several stressors relating to the illness of her who is her primary support and caregiver. As a result, she has had a relatively steady decline with increased depression culminating in suicidal ideation, recent suicide attempt, and cognitive impairment. Prior to admission she was only on Prozac and has now been cross tapered to venlafaxine with aripiprazole. She is having multiple symptoms of depression related to mood, sleep, interest, guilt, energy, concentration, anhedonia, and passive suicidal ideation. The patient's blood pressure has returned to normal. The patient appears to have had a significant improvement in mood over the previous days/weeks with good eye contact smiles and brighter affect although today she has fallen back on themes of needing to be punished. The patient has been treated with nebulizers which is improved her breathing and cough. The patient continues to have cogwheeling and rigidity, combined with her festinating gait date and difficulty initiating and stopping movement, it is likely that patient is suffering from primary Parkinson's disease. The patient appears to have improved with amantadine with reduction in tremor but still demonstrates difficulty changing movement. The patient appears to be responding well to treatment and is less pessimistic and more future oriented. Her auditory hallucinations appear to have improved, although she had a brief episode of hallucinations again this morning. The patient's difficulty communicating appears to be related to a return of some of the catatonic symptoms exhibited earlier in her stay. Clonazepam appears to be necessary at this time despite the low dose. Given the persistence of auditory hallucinations, aripiprazole will need to be increased to 15 mg. The patient will remain on one-to-one due to falls risk but has received a new walker. Patient has 90 day less restrictive order with 2 weeks inpatient but may be ready for discharge sooner. [place] I: 1. Major depressive disorder, severe, with psychosis. 2. Rule out bipolar one disorder, depressed with psychotic features. 3. Rule out cognitive disorder unspecified. [place] II: Deferred. [place] III: Osteoarthritis, asthma, chronic obstructive pulmonary disease. Probable Parkinson's disease. [place] IV: Moderate. [place] V: Global Assessment of Functioning equal to 35. Medications Aripiprazole 10 mg daily Lamotrigine 200 mg daily Melatonin 5 mg nightly Clonazepam 0.5 mg nightly Amantadine 100mg po twice daily Quetiapine 50 at bedtime Venlafaxine XL 225 mg daily Treatments 1. The patient is encouraged to participate with group and milieu therapy. 2. The patient is encouraged to continue medications as prescribed. 3. The patient will meet with the treatment team on a daily basis to assess symptoms, side effects, and response to treatment. 4. The patient will continue to have a one-to-one with her due to her increased risk for fall. 5. Increase aripiprazole to 15 mg daily and titrate as tolerated 6. Continue venlafaxine 225 mg daily. 7. Amantadine 100 mg twice daily 8. Increase clonazepam to 0.5 mg twice daily. 9. The patient will be referred to neurology on discharge for assessment for Parkinson's. 10. Patient received a 90 day less restrictive order with 14 days inpatient on 08/12/2016 Emerson Crain MD Aug 17, 2016 20:19
--- NOTE | 2016-08-17 22:28 | NUR ---
Nurses Note Evening Patient remains on 1:1 for safety and support. Her mood has been labile with periods of anxiety,auditory hallucinations with persecutory delusions. Patient has had periods of mute-like behaviors as well as appropriate responses and conversations. Physical Therapy visited for a session working with her new rolling walker/chair. Will continue to maintain constant 1:1 assist,assess medication efficacy alert to side effects. Addendum: 08/17/16 at 6048 by AIYANA GONSALEZ RN Amended: Links added.
--- NOTE | 2016-08-18 05:52 | NUR ---
nursing, nights, 11-7 s/o- has one to one assistance with direct observation. has appeared to sleep after 1999. assisted to the toilet at 0130 and 0330. easily returned to sleep. assessed q 15 minutes. a- no apparent distress. p- monitor behavior/emotional state, quality, times and amount of sleep, use and effect of medication. continue one to one for safety and assistance with adl's. rosaline
[2016-08-18] MEDS: lamoTRIgine 100 mg Tablet PO SCH (08:16)
[2016-08-18] MEDS: Venlafaxine XR 75 mg ER24 Capsule PO SCH (08:21)
[2016-08-18 08:30] VITALS: BP 104/67; PULSE 84; RESP 15
[2016-08-18] MEDS: Albuterol 2.5 mg/3 mL Inhalation Solution NEB PRN (09:54)
--- NOTE | 2016-08-18 14:41 | NUR ---
Nursing Note [id number] Behavior S/O: Pt with 1:1 sitter during the day d/t hx of falls & fall risk. Pt's gait is unsteady. Muscle strength is weak. Hands are shaky. Pt attended craft group this morning. Out in milieu most of the day. Interaction with staff & peers is minimal, but is able to answer appropriately when approached. Conversation tracking slow & steady. Thinking appears clear. A: Pt con't to need assist with ADL's. P: Provide supportive environment. Monitor medications & effects.
[2016-08-18] MEDS: diphenhydrAMINE 25 mg Capsule PO SCH (20:38)
--- NOTE | 2016-08-18 20:55 | NUR ---
Observations 0900 to 2130 Pt had 1:1 throughout the shift due to being a fall risk. Pt rested in bed and sat in D.R. when out of her room. Pt speech and eye contact was good. Pt declined to attend community meeting and did not set a daily goal. Pt attended group and did some coloring in D.R. and in the group. Pt attended meals in D.R. and ate approximately 50-75% of meals. Pt ate snack. Pt maintained behavior throughout the shift. Pt came to visit her and it appeared to go well. Pt was observed every 15 minutes throughout the shift as ordered.
--- NOTE | 2016-08-18 22:10 | NUR ---
Nurses Note Evening Patient remains on 1:1 for safety due to falls risk. Patient has been walking with staff with guard belt and rolling walker without incident. Physical therapy continues to work on gait,balance and proper use of her walker. Patient appeared slow to respond verbally but was alert and oriented without periods of tearfulness. She enjoyed a visit from her who remains attentive and supportive to her needs.Continue 1:1 for safety and support.
--- NOTE | 2016-08-18 23:03 | PCM.PNPSY ---
Subjective Date of Service Aug 18, 2016 Subjective The patient reports, "I feel a lot better than I have." She reports, "I hope so " regarding returning home and thinks that she needs another few days of good mood before she would be ready to go home. Stiffness improved, walking better with PT. Sleep: "pretty tired" Appetite: "better." Suicidal and homicidal ideation: Denies Auditory hallucinations: Denies Visual hallucinations: Denies Other Psychotic Symptoms: N/A Anxiety: 12/17, "not any more than the usual." Depression: 12/17 "more contact with people" Current Medications Current Medications Aripiprazole 15 mg DAILY PO Last administered on 08/18/16 08:19; Admin Dose 15 MG; Start 08/18/16 at 08:30 Clonazepam 0.5 mg BID PO Last administered on 08/18/16 20:38; Admin Dose 0.5 MG ; Start 08/17/16 at 10:40 Mental Status Exam Appearance: Neat/well groomed Attitude: Pleasant, Cooperative Behavior: Other (good eye contact affect brighter) Affect: Restricted (but much brighter) Mood: Depressed, Anxious Thought Process/Associations: Goal Directed Speech Production: Paucity Speech Rate: Lags/Latency Speech Articulation: Other (soft) Thought Content: Negativistic, Perseveration Danger to Self/Suicidal Ideati: None Danger to Others: None Hallucinations: Auditory (Denies), Visual (Denies) Consciousness: Hyper-vigilant Orientation: Person, Place, Date, Situation Memory: Grossly Intact Estimate Intellectual Function: Average Attention/Concentration & Cogn: Impaired (but improving) Insight: Limited Judgement: Limited Mental Health Plan The patient is a 71-year-old white female with an over 40-year history of depression. Over the past month she has had several stressors relating to the illness of her who is her primary support and caregiver. As a result, she has had a relatively steady decline with increased depression culminating in suicidal ideation, recent suicide attempt, and cognitive impairment. Prior to admission she was only on Prozac and has now been cross tapered to venlafaxine with aripiprazole. She is having multiple symptoms of depression related to mood, sleep, interest, guilt, energy, concentration, anhedonia, and passive suicidal ideation. The patient's blood pressure has returned to normal. The patient appears to have had a significant improvement in mood over the previous days/weeks with good eye contact smiles and brighter affect although today she has fallen back on themes of needing to be punished. The patient has been treated with nebulizers which is improved her breathing and cough. The patient continues to have cogwheeling and rigidity, combined with her festinating gait date and difficulty initiating and stopping movement, it is likely that patient is suffering from primary Parkinson's disease. The patient appears to have improved with amantadine with reduction in tremor but still demonstrates difficulty changing movement. The patient appears to be responding well to treatment and is less pessimistic and more future oriented. Her auditory hallucinations appear to have improved, although she had a brief episode of hallucinations again this morning. The patient's difficulty communicating appears to be related to a return of some of the catatonic symptoms exhibited earlier in her stay. Clonazepam appears to be necessary at this time despite the low dose. Patient appears to be responding to increase of clonazepam and aripiprazole. The patient will remain on one-to-one due to falls risk but has received a new walker. Patient has 90 day less restrictive order with 2 weeks inpatient but may be ready for discharge early next week. Ethel Ethel I: 1. Major depressive disorder, severe, with psychosis. 2. Rule out bipolar one disorder, depressed with psychotic features. 3. Rule out cognitive disorder unspecified. Ethel II: Deferred. Ethel III: Osteoarthritis, asthma, chronic obstructive pulmonary disease. Probable Parkinson's disease. Ethel IV: Moderate. Ethel V: Global Assessment of Functioning equal to 35. Medications Aripiprazole 15 mg daily Lamotrigine 200 mg daily Melatonin 5 mg nightly Clonazepam 0.5 mg twice daily Amantadine 100mg po twice daily Quetiapine 50 at bedtime Venlafaxine XL 225 mg daily Treatments 1. The patient is encouraged to participate with group and milieu therapy. 2. The patient is encouraged to continue medications as prescribed. 3. The patient will meet with the treatment team on a daily basis to assess symptoms, side effects, and response to treatment. 4. The patient will continue to have a one-to-one with her due to her increased risk for fall. 5. Continue aripiprazole 15 mg daily and titrate as tolerated 6. Continue venlafaxine 225 mg daily. 7. Amantadine 100 mg twice daily 8. Clonazepam 0.5 mg twice daily. 9. The patient will be referred to neurology on discharge for assessment for Parkinson's. 10. Patient received a 90 day less restrictive order with 14 days inpatient on 08/12/2016 Emerson Crain MD Aug 18, 2016 23:03
--- NOTE | 2016-08-19 06:02 | NUR ---
nursing, nights, 11-7 s/o- has one to one assistance with direct observation. has appeared to sleep 1944 to 2029, 2144 to 199 when she was assisted to the toilet. asked to use the toilet at 329 and has been resting/sleeping quietly. assessed q 15 minutes. a- no apparent distress. p- monitor behavior/emotional state, quality, times and amount of sleep, use and effect of medication. continue one to one for safety and assistance with adl's. rosaline
[2016-08-19] MEDS: Venlafaxine XR 75 mg ER24 Capsule PO SCH (08:02)
[2016-08-19] MEDS: lamoTRIgine 100 mg Tablet PO SCH (08:03)
[2016-08-19 08:35] VITALS: BP 101/65; PULSE 87; RESP 16
--- NOTE | 2016-08-19 15:32 | NUR ---
Nursing Dayshift: S: "Yes, she is my favorite. She's a lot of fun." O: Patient remarking about her 1:1 staff member. Smiling and conversive with 1:1. Good appetite at meals. Pleasant on approach. Utilizing four wheeled walker for mobility. No falls. A: Pleasant. Cooperative. P: CPOC. Monitor mood and behavior.
--- NOTE | 2016-08-19 19:43 | PCM.PNPSY ---
Subjective Date of Service Aug 19, 2016 Subjective The patient reports that she is doing better today although she thought that she had a rough morning due to increased tremor. The patient stated that she is looking forward to returning home but does not feel quite ready yet due to her tremulousness. As she responded well to the restart of clonazepam, with full resolution of auditory hallucinations, aripiprazole will be returned to 10 mg daily to reduce side effects. The patient is working well with physical therapy. Sleep: 8+ hours. Appetite: "Pretty good." Suicidal and homicidal ideation: Denies Auditory hallucinations: Denies Visual hallucinations: Denies Other Psychotic Symptoms: N/A Anxiety/Depression: "Better" Current Medications Current Medications Aripiprazole 15 mg DAILY PO Last administered on 08/19/16t 08:02; Admin Dose 15 MG; Start 08/18/16 at 08:30; Stop 08/19/16 at 15:57; Status DC Mental Status Exam Appearance: Neat/well groomed Attitude: Pleasant, Cooperative Behavior: Other (good eye contact affect brighter) Affect: Restricted (but much brighter, smiling at times) Mood: Dysthymic, Anxious Thought Process/Associations: Goal Directed Speech Production: Paucity Speech Rate: Lags/Latency Speech Articulation: Other (soft) Thought Content: Appropriate Danger to Self/Suicidal Ideati: None Danger to Others: None Hallucinations: Auditory (Denies), Visual (Denies) Consciousness: Alert Orientation: Person, Place, Date, Situation Memory: Grossly Intact Estimate Intellectual Function: Average Attention/Concentration & Cogn: Impaired (but improving) Insight: Limited Judgement: Limited Mental Health Plan The patient is a 71-year-old white female with an over 40-year history of depression. Over the past month she has had several stressors relating to the illness of her who is her primary support and caregiver. As a result, she has had a relatively steady decline with increased depression culminating in suicidal ideation, recent suicide attempt, and cognitive impairment. Prior to admission she was only on Prozac and has now been cross tapered to venlafaxine with aripiprazole. She is having multiple symptoms of depression related to mood, sleep, interest, guilt, energy, concentration, anhedonia, and passive suicidal ideation. The patient's blood pressure has returned to normal. The patient appears to have had a significant improvement in mood over the previous days/weeks with good eye contact smiles and brighter affect although today she has fallen back on themes of needing to be punished. The patient has been treated with nebulizers which is improved her breathing and cough. The patient continues to have cogwheeling and rigidity, combined with her festinating gait date and difficulty initiating and stopping movement, it is likely that patient is suffering from primary Parkinson's disease. The patient appears to have improved with amantadine with reduction in tremor but still demonstrates difficulty changing movement. The patient appears to be responding well to treatment and is less pessimistic and more future oriented. The patient's catatonia symptoms and auditory hallucinations appear to be resolving with the addition of clonazepam 0.5 mg in the morning. The patient's tremor appears to have increased with the increased dose of aripiprazole. Given the fairly rapid resolution of symptoms with the addition of clonazepam, aripiprazole could be reduced to 10 mg to reduce tremor and improve patient's gait. The patient will remain on one-to-one due to falls risk but has received a new walker. Patient has 90 day less restrictive order with 2 weeks inpatient but may be ready for discharge early next week. Crawford Crawford I: 1. Major depressive disorder, severe, with psychosis. 2. Rule out bipolar one disorder, depressed with psychotic features. 3. Rule out cognitive disorder unspecified. Crawford II: Deferred. Crawford III: Osteoarthritis, asthma, chronic obstructive pulmonary disease. Probable Parkinson's disease. Crawford IV: Moderate. Crawford V: Global Assessment of Functioning equal to 35. Medications Aripiprazole 15 mg daily Lamotrigine 200 mg daily Melatonin 5 mg nightly Clonazepam 0.5 mg twice daily Amantadine 100mg po twice daily Quetiapine 50 at bedtime Venlafaxine XL 225 mg daily Treatments 1. The patient is encouraged to participate with group and milieu therapy. 2. The patient is encouraged to continue medications as prescribed. 3. The patient will meet with the treatment team on a daily basis to assess symptoms, side effects, and response to treatment. 4. The patient will continue to have a one-to-one with her due to her increased risk for fall. 5. Decrease aripiprazole to 10 mg daily and titrate as tolerated 6. Continue venlafaxine 225 mg daily. 7. Amantadine 100 mg twice daily 8. Continue clonazepam 0.5 mg twice daily. 9. The patient will be referred to neurology on discharge for assessment for Parkinson's. 10. Patient received a 90 day less restrictive order with 14 days inpatient on 08/12/2016 Emerson Crain MD Aug 19, 2016 19:43
[2016-08-19] MEDS: diphenhydrAMINE 25 mg Capsule PO SCH (20:12)
--- NOTE | 2016-08-19 20:35 | NUR ---
Observations 0700 to 2130 Pt had 1:1 throughout the shift due to being a fall risk. Pt rested in bed and sat in D.R. when out of her room. Pt speech and eye contact was good. Pt attended community meeting and set a daily goal. Pt attended group and did some coloring in D.R. and in the group. Pt attended meals in D.R. and ate approximately 50-75% of meals. Pt ate snack. Pt maintained behavior throughout the shift. Pt came to visit her and it appeared to go well. Pt was polite, pleasant and cooperative. Pt walked the hallway with PT in the afternoon. Pt was observed every 15 minutes throughout the shift as ordered.
[2016-08-20] MEDS ORDERED: Ipratropium 0.02% 0.5 mg/2.5 mL Inhalation Solution NEB PRN (04:25)
[2016-08-20] MEDS ORDERED: Albuterol 2.5 mg/3 mL Inhalation Solution NEB PRN (04:25)
[2016-08-20] MEDS ORDERED: diphenhydrAMINE 25 mg Capsule PO PRN (04:25)
--- NOTE | 2016-08-20 07:10 | NUR ---
Nursing, Nights, 11-7 s/o- has appeared to sleep 2030 during q 15 minute assessments. a- no apparent distress. p- monitor behavior/emotional state, quality, times and amount of sleep, use and effect of medication.
[2016-08-20] MEDS: lamoTRIgine 100 mg Tablet PO SCH (08:29)
[2016-08-20] MEDS: ARIPiprazole 10 mg Tablet PO SCH (08:29)
[2016-08-20] MEDS: Venlafaxine XR 75 mg ER24 Capsule PO SCH (08:30)
--- NOTE | 2016-08-20 15:19 | NUR ---
Board Member/Counselor: S: "I'll be ready to go home Monday." O: Patient slept 10+ hours last night as per staff. She denies S/I and H/I. She denies auditory and visual hallucinations. A: Patient is cooperative, guarded, improving, restricted affect, paranoid, anxious at times. P: Follow care plan, coordinate out-patient providers.
[2016-08-20 17:14] VITALS: BP 94/56; PULSE 89; RESP 16
--- NOTE | 2016-08-20 20:02 | NUR ---
[id number]. nurs. Pt with continued 1:1 for severe hx of unpredictable falls on unit. Pt appearing with some bright affect and clear thinking, periods of more positive presentation. PT wking with pt and noting improved affect as well as mostly much improved gait and steadiness of position change and ambulation. Pt visited by tiffany genna. Pt interactive with some peers for periods in DR . Some of pt's poorer periods of immobility and poor mood presentation possibly association with pt's parkinsonian d.o.
[2016-08-20] MEDS: diphenhydrAMINE 25 mg Capsule PO SCH (20:32)
--- NOTE | 2016-08-20 21:33 | NUR ---
OBSERVATIONS 0900 to 2130 Pt appeared more alert, oriented, and physically steady than on previous shifts. Pt thought and speech was also more organized than previous shifts. Pt was more social in during the first part of the day and more isolative in the evening. Pt had visit with . Pt did not eat dinner, saying she was not hungry. Pt sounded congested, this was discussed with nurse. Q15 safety checks were maintained as directed.
--- NOTE | 2016-08-20 22:37 | PCM.PNPSY ---
Subjective Date of Service Aug 20, 2016 Subjective The patient reports her mood as "wishy washy" with better in the morning and decreased as the day goes by. The patient's tremor is improved today and no auditory hallucinations. The patient thinks she will be ready for return to home early next week if her progress remains stable. The patient is working well with physical therapy. Sleep: 10+ hours, "well" Appetite: "Returned." Suicidal and homicidal ideation: Denies Auditory hallucinations: Denies Visual hallucinations: Denies Other Psychotic Symptoms: N/A Anxiety: 02/16 Depression: 01/16 Current Medications Current Medications Acetaminophen 325 mg HS PO Last administered on 08/20/16 20:32; Admin Dose 325 MG; Start 08/20/16 at 21:00 Aripiprazole 10 mg DAILY PO Last administered on 08/20/16 08:29; Admin Dose 10 MG; Start 08/20/16 at 08:30 Diphenhydramine HCl 25 mg HS PO Last administered on 08/20/16 20:32; Admin Dose 25 MG; Start 08/20/16 at 21:00 Melatonin 5 mg HS PO Last administered on 08/20/16 20:33; Admin Dose 5 MG; Start 08/20/16 at 21:00 Pravastatin Sodium 20 mg HS PO Last administered on 08/20/16 20:32; Admin Dose 20 MG; Start 08/20/16 at 21:00 Mental Status Exam Vital Signs Vital Signs Date Time Temp Pulse Resp B/P Pulse Ox O2 Delivery O2 Flow Rate FiO2 08/20/16 17:14 37.1 89 16 94/56 08/20/16 14:38 Room Air Appearance: Neat/well groomed Attitude: Pleasant, Cooperative Behavior: Other (good eye contact affect brighter) Affect: Restricted (but much brighter, smiling at times) Mood: Dysthymic, Anxious Thought Process/Associations: Goal Directed Speech Production: Paucity Speech Rate: Lags/Latency Speech Articulation: Other (soft) Thought Content: Appropriate Danger to Self/Suicidal Ideati: None Danger to Others: None Hallucinations: Auditory (Denies), Visual (Denies) Consciousness: Alert Orientation: Person, Place, Date, Situation Memory: Grossly Intact Estimate Intellectual Function: Average Attention/Concentration & Cogn: Impaired (but improving) Insight: Limited Judgement: Limited Mental Health Plan The patient is a 71-year-old white female with an over 40-year history of depression. Over the past month she has had several stressors relating to the illness of her who is her primary support and caregiver. As a result, she has had a relatively steady decline with increased depression culminating in suicidal ideation, recent suicide attempt, and cognitive impairment. Prior to admission she was only on Prozac and has now been cross tapered to venlafaxine with aripiprazole. She is having multiple symptoms of depression related to mood, sleep, interest, guilt, energy, concentration, anhedonia, and passive suicidal ideation. The patient's blood pressure has returned to normal. The patient appears to have had a significant improvement in mood over the previous days/weeks with good eye contact smiles and brighter affect although today she has fallen back on themes of needing to be punished. The patient has been treated with nebulizers which is improved her breathing and cough. The patient continues to have cogwheeling and rigidity, combined with her festinating gait date and difficulty initiating and stopping movement, it is likely that patient is suffering from primary Parkinson's disease. The patient appears to have improved with amantadine with reduction in tremor but still demonstrates difficulty changing movement. The patient appears to be responding well to treatment and is less pessimistic and more future oriented. The patient's catatonia symptoms and auditory hallucinations appear to be resolving with the addition of clonazepam 0.5 mg in the morning. The patient's tremor appears to have increased with the increased dose of aripiprazole. Given the fairly rapid resolution of symptoms with the addition of clonazepam, aripiprazole could be reduced to 10 mg to reduce tremor and improve patient's gait. The patient appears to have responded well to this approach. The patient will remain on one-to-one due to falls risk but has received a new walker. Patient has 90 day less restrictive order with 2 weeks inpatient but may be ready for discharge early next week. Crowell Crowell I: 1. Major depressive disorder, severe, with psychosis. 2. Rule out bipolar one disorder, depressed with psychotic features. 3. Rule out cognitive disorder unspecified. Crowell II: Deferred. Crowell III: Osteoarthritis, asthma, chronic obstructive pulmonary disease. Probable Parkinson's disease. Crowell IV: Moderate. Crowell V: Global Assessment of Functioning equal to 35. Medications Aripiprazole 15 mg daily Lamotrigine 200 mg daily Melatonin 5 mg nightly Clonazepam 0.5 mg twice daily Amantadine 100mg po twice daily Quetiapine 50 at bedtime Venlafaxine XL 225 mg daily Treatments 1. The patient is encouraged to participate with group and milieu therapy. 2. The patient is encouraged to continue medications as prescribed. 3. The patient will meet with the treatment team on a daily basis to assess symptoms, side effects, and response to treatment. 4. The patient will continue to have a one-to-one with her due to her increased risk for fall. 5. Continue aripiprazole 10 mg daily 6. Continue venlafaxine 225 mg daily. 7. Amantadine 100 mg twice daily 8. Continue clonazepam 0.5 mg twice daily. 9. The patient will be referred to neurology on discharge for assessment for Parkinson's. 10. Patient received a 90 day less restrictive order with 14 days inpatient on 08/12/2016 Emerson Crain MD Aug 20, 2016 22:37
[2016-08-21] MEDS: Venlafaxine XR 75 mg ER24 Capsule PO SCH (09:00)
[2016-08-21] MEDS: ARIPiprazole 10 mg Tablet PO SCH (09:01)
[2016-08-21] MEDS: lamoTRIgine 100 mg Tablet PO SCH (09:42)
[2016-08-21 11:56] VITALS: PULSE 70; RESP 18; O2SAT 95
--- NOTE | 2016-08-21 18:23 | NUR ---
Obs Dayshift Pt is up in the milieu often but not for long periods of time. Pt is easily tired and becomes weak quickly. Pt is polite, engaging when approached. Pt doesn't appear to be having as many voices, or responding as often. Pt participates more in groups, w/ art or coloring. Pt is hopeful to get back home with her soon. Good ADL's, Good meals
[2016-08-21] MEDS: diphenhydrAMINE 25 mg Capsule PO SCH (19:55)
--- NOTE | 2016-08-21 21:48 | PCM.PNPSY ---
Subjective Date of Service Aug 21, 2016 Subjective The patient reports that her mood is much improved today. She also reports that her tremor is improved. She asks today whether she had Parkinson's disease. We discussed that she would need to see an outpatient neurologist for definitive diagnosis. She reported that she was sad that her son had not come to visit her while she was in the hospital. She still feels that she is ready for discharge either Monday or Monday. We discussed that we would need to speak with her regarding his preparedness to have her in the home given her mobility issues. The patient appeared to understand this and accept the situation. The patient is working well with physical therapy. The patient appears to continue to have congestion in the morning requiring nebulizer. Sleep: 10+ hours, "slept well" Appetite: "Pretty good but they gave me too much food" Suicidal and homicidal ideation: Denies SI/HI this morning but reports occasionally having to "push them back" (suicidal thoughts) but has no plan or intention of acting on Auditory hallucinations: Reports very brief this morning Visual hallucinations: Denies Other Psychotic Symptoms: N/A Anxiety: "Cannot really say Depression: -01/16 Current Medications Current Medications Acetaminophen 325 mg HS PO Last administered on 08/21/16 19:55; Admin Dose 325 MG; Start 08/20/16 at 21:00 Albuterol 2.5 mg Q4H PRN NEB Last administered on 08/21/16 11:56; Admin Dose 2.5 MG; Start 08/20/16 at 04:25 Aripiprazole 10 mg DAILY PO Last administered on 08/21/16 09:01; Admin Dose 10 MG; Start 08/20/16 at 08:30 Cholecalciferol 2,000 unit DAILY PO Last administered on 08/21/16 09:42; Admin Dose 2,000 UNIT; Start 08/21/16 at 09:41 Diphenhydramine HCl 25 mg HS PO Last administered on 08/21/16 19:55; Admin Dose 25 MG; Start 08/20/16 at 21:00 Lamotrigine 200 mg DAILY PO Last administered on 08/21/16 09:42; Admin Dose 200 MG; Start 08/21/16 at 09:40 Melatonin 5 mg HS PO Last administered on 08/21/16 19:55; Admin Dose 5 MG; Start 08/20/16 at 21:00 Pravastatin Sodium 20 mg HS PO Last administered on 08/21/16t 19:55; Admin Dose 20 MG; Start 08/20/16 at 21:00 Mental Status Exam Appearance: Neat/well groomed Attitude: Pleasant, Cooperative Behavior: Other (good eye contact affect brighter) Affect: Restricted (but much brighter, smiling at times) Mood: Dysthymic, Anxious Thought Process/Associations: Goal Directed Speech Production: Paucity Speech Rate: Lags/Latency Speech Articulation: Other (soft) Thought Content: Appropriate Danger to Self/Suicidal Ideati: None Danger to Others: None Hallucinations: Auditory (Endorses, briefly), Visual (Denies) Consciousness: Alert Orientation: Person, Place, Date, Situation Memory: Grossly Intact Estimate Intellectual Function: Average Attention/Concentration & Cogn: Impaired (but improving) Insight: Limited Judgement: Limited Mental Health Plan The patient is a 71-year-old white female with an over 40-year history of depression. Over the month preceding admission she had several stressors relating to the illness of her who is her primary support and caregiver. As a result, she has had a relatively steady decline with increased depression culminating in suicidal ideation, recent suicide attempt, and cognitive impairment. Prior to admission she was only on Prozac and has now been cross tapered to venlafaxine with aripiprazole. She is having multiple symptoms of depression related to mood, sleep, interest, guilt, energy , concentration, anhedonia, and passive suicidal ideation but these have resolved in recent days. The patient's blood pressure has returned to normal. The patient appears to have had a significant improvement in mood over the previous days/weeks with good eye contact smiles and brighter affect stating that she feels she is ready for discharge. The patient has been treated with nebulizers which is improved her breathing and cough. The patient continues to have cogwheeling and rigidity, combined with her festinating gait date and difficulty initiating and stopping movement, it is likely that patient is suffering from primary Parkinson's disease. The patient appears to have improved with amantadine with reduction in tremor but still demonstrates difficulty changing movement. The patient's catatonia symptoms and auditory hallucinations appear to be resolving with the re- addition of clonazepam 0.5 mg in the morning. The patient's tremor appears to have increased with the increased dose of aripiprazole and decreased with reduction. The patient appears to have a delicate balance between the dose of medication and may require a longer period of stabilization prior to considering increasing the dose. The patient will remain on one-to-one due to falls risk but has received a new walker. Patient has 90 day less restrictive order with 2 weeks inpatient but appears ready for discharge in the next few days typically depending on the condition of her /caregiver. [place] I: 1. Major depressive disorder, severe, with psychosis. 2. Rule out bipolar one disorder, depressed with psychotic features. 3. Rule out cognitive disorder unspecified. [place] II: Deferred. [place] III: Osteoarthritis, asthma, chronic obstructive pulmonary disease. Probable Parkinson's disease. [place] IV: Moderate. [place] V: Global Assessment of Functioning equal to 35. Medications Amantadine 100mg po twice daily Clonazepam 0.5 mg twice daily Diphenhydramine 25 mg by mouth nightly Melatonin 5 mg nightly Pravastatin 20 mg nightly Albuterol nebulizer 2.5 mg every 4 hours as needed Aripiprazole 10 mg daily Lamotrigine 200 mg daily Venlafaxine XL 225 mg daily Treatments 1. The patient is encouraged to participate with group and milieu therapy. 2. The patient is encouraged to continue medications as prescribed. 3. The patient will meet with the treatment team on a daily basis to assess symptoms, side effects, and response to treatment. 4. The patient will continue to have a one-to-one with her due to her increased risk for fall. 5. Continue aripiprazole 10 mg daily 6. Continue venlafaxine 225 mg daily. 7. Amantadine 100 mg twice daily 8. Continue clonazepam 0.5 mg twice daily. 9. The patient will be referred to neurology on discharge for assessment of possible Parkinson's. 10. Patient received a 90 day less restrictive order with 14 days inpatient on 08/12/2016 11. Will schedule daily nebulizer. Emerson Crain MD Aug 21, 2016 21:48
--- NOTE | 2016-08-21 22:16 | NUR ---
NURSING NOTE [id number] Mood: "I don't know" Affect: fatigued, withdrawn at start of shift, brighter at end of shift Behavior: pt. appeared quite unsteady on her feet, fatigued, and tremulous at start of shift. She took a nap and appeared a bit steadier after. She came out to color in the DR w/her peers Thought processes= denies SI/HI/AH/VH. Some delusions regarding her and his inability to visit her this evening.
--- NOTE | 2016-08-22 06:23 | NUR ---
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 Patient was up to the bathroom once early am to void. Patient is cooperative, but needs reminders and prompts to use walker. Patient returned to bed without incident, returned to sleeping.
[2016-08-22] MEDS: ARIPiprazole 10 mg Tablet PO SCH (07:40)
[2016-08-22] MEDS: Venlafaxine XR 75 mg ER24 Capsule PO SCH (07:40)
[2016-08-22] MEDS: lamoTRIgine 100 mg Tablet PO SCH (07:41)
[2016-08-22 10:26] VITALS: BP 102/64; PULSE 84; RESP 16
[2016-08-22] MEDS: Albuterol 2.5 mg/3 mL Inhalation Solution NEB SCH (10:54)
[2016-08-22 10:55] VITALS: PULSE 80; RESP 18; O2SAT 95
--- NOTE | 2016-08-22 13:46 | PCM.DIMED ---
Discharge Instructions Date of Service Aug 22, 2016 Dates of Hospitalization Jul 22, 2016 at 12:28 Discharge Diagnosis Discharge Diagnosis [place] I: 1. Major depressive disorder, severe, with psychosis. [place] II: Deferred. [place] III: Osteoarthritis, asthma, chronic obstructive pulmonary disease. Probable Parkinson's disease. [place] IV: Moderate. [place] V: Global Assessment of Functioning equal to 45 Medication Instructions Medications Amantadine 100mg po twice daily Clonazepam 0.5 mg twice daily Diphenhydramine 25 mg by mouth nightly Melatonin 5 mg nightly Pravastatin 20 mg nightly Albuterol nebulizer 2.5 mg every 4 hours as needed Aripiprazole 10 mg daily Lamotrigine 200 mg daily Venlafaxine XL 225 mg daily Diet No restrictions Activity No restrictions Call your provider Fever or Chills Patient Instructions Plan to follow-up with Dr. Veronica Agustin 08/31/2016 at 8:35 AM in [place] Follow-up plan Client follow-up with her primary care physician and will be going home with her to [place] tonight Follow-up with PCP in: 2 weeks Peter Campa MD Aug 22, 2016 13:46
[2016-08-22] MEDS ORDERED: MELA5TAB14 PO (13:51)
[2016-08-22] MEDS ORDERED: LAMO100T PO (13:51)
[2016-08-22] MEDS ORDERED: IPRA0.2S51 NEB (13:51)
[2016-08-22] MEDS ORDERED: AMN100C PO (13:51)
[2016-08-22] MEDS ORDERED: VENL75CA PO (13:51)
[2016-08-22] MEDS ORDERED: DIPH25CA6 PO (13:51)
[2016-08-22] MEDS ORDERED: ARIP10TA14 PO (13:51)
[2016-08-22] MEDS ORDERED: KLO5T PO (13:51)
[2016-08-22] MEDS ORDERED: ALBU2.5V4 NEB ×2 (13:51)
[2016-08-22] MEDS ORDERED: FLUO10CA20 PO (13:51)
[2016-08-22] MEDS ORDERED: PRA20 PO (13:51)
--- NOTE | 2016-08-22 17:50 | NUR ---
Nursing: Day shift and predischarge note. Roma has had 1;1 staff observation this shift due to fall risk. She is bright, responsive, and future oriented. She is concerned about her future if she has Parkinson's disorder. Admitted, "I don't even remember coming in. I just felt so down!." Acknowledges that fredo is better now. Uses Four wheel walker for ambulating around the unit. Eating well. Is awaiting 's arrival for discharge. Has signed discharge materials. States she will be safe when she goes home. Addendum: 08/22/16 at 1842 by YAEL HALL RN Amended: Links added.
--- NOTE | 2016-08-22 19:54 | PCM.CHPMED ---
Subjective Date of Service: Aug 22, 2016 Primary Physician: Admitting Physician: Brando Bliss DO Primary Care Physician: Veronica Agustin MD Attending Physician: Brando Bliss DO Chief Complaint: Chief Complaint: Patient fell and hit the back of her head History of Present Illness: This is a 71-year-old female who was admitted to the mental health unit on 09/19 for depression and suicidal ideation. She was being discharged in walking down the ram and fell backwards and hit her head. She has a fairly long history of gait instability and tremor. According to the patient and according to her psychiatrist in psychiatry nurses that has not been evaluated in the past. She is followed by Dr. Veronica Agustin in Monday. She does use a walker for gait stability. She currently denies any visual changes denies any motor or sensory changes. She does admit to some right sided neck pain and did develop a hematoma soon after the fall on the upper part of the back of her head. No lacerations occurred with this fall. Review of Systems: Other review of systems are reviewed and are negative except for as in history of present illness and per psychiatry PMH Past Medical History History of osteoarthritis history of asthma history of COPD history of gait instability and tremors History of depression and anxiety Allergies: Coded Allergies: shellfish derived (Verified Allergy, Severe, anaphylaxis, 07/22/16) trifluoperazine (Verified Allergy, Severe, 05/05/09) Sulfa (Sulfonamide Antibiotics) (Verified Adverse Reaction, Mild, sick to stomach, 07/22/16) Social History Hx Alcohol Use: Yes (30 years ago )Hx Substance Use: NoHx Tobacco Use: No Exam Vital Signs Vital Sign - Last Date Time Temp Pulse Resp B/P Pulse Ox O2 Delivery O2 Flow Rate FiO2 08/22/16 10:55 80 18 95 08/22/16 10:26 36.2 102/64 08/21/16 11:56 Room Air General: Alert, Oriented X3 Head: Scalp (hematoma on the upper part of her posterior scalp) Eyes: PERRLA, EOMI Mouth: Mouth Normal Neck: Tenderness (mild tenderness at the right lower cervical paraspinal area no point or spinous process tenderness noted) Chest & Lungs: Chest Wall Normal, Clear to auscultation & percussion Cardiovascular: Regular Rate/Rhythm, Normal S1, Normal S2 Abdomen: Non-tender, Benign Extremities: No cyanosis/clubbing/edma bilat, Normal bilaterally Neurological: Grossly Neurologically Intact, Cerebellar Function nl Finger- Nose (with fine hand tremor as noted above but is able to hit her target i.e. no pass pointing), Other (does have a tremor with fine hand movement. Gait is not checked at this time) Assessment & Plan Assessment #Ground-level fall with head trauma, acute We will check CT of head and C-spine without contrast for further investigation I did instruct nurses to check neuro checks every 4 hours We will get physical therapy consultation prior to potential discharge Recommend either inpatient or outpatient neurology consultation # Chronic gait instability with tremor, present on admission Recommend inpatient or outpatient neurology consultation Physical therapy consult to be done tomorrow # Psychiatric issues, present on admission Further recommendations per psychiatry. Problems: Time spent 60 minutes Heather Brooks MD Aug 22, 2016 19:54
--- NOTE | 2016-08-22 19:59 | NUR ---
Nursing: Pt fall 1824: Roma was standing with her walker in the day room ready to leave with her . She turned to speak to a peer and fell backward hitting her head hard on the floor. 1826. Dr Campa notified of situation. Ordered Pt to be assessed by hospitalist. VS at 183: 136/78 85 24 o2 sat 100%. ESTEPHANIA. Pt is responsive. complained of pain. Received Tylenol prn. Posterior scalp has soft raised area. 1839; Pt seen by hospitalist who ordered CT scan. Pt had CT done. 1999. Pt is resting in bed. P: Do VS every 4 hours through night. Continue 1;1 observation through night.
[2016-08-22] MEDS: diphenhydrAMINE 25 mg Capsule PO SCH (21:30)
[2016-08-23 00:33] VITALS: BP 111/55; PULSE 67; RESP 14
--- NOTE | 2016-08-23 00:35 | NUR ---
Post fall neuro checks PEARLA 6mm size. 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 Report of localized pain at occipital aspect of head 09/16.
--- NOTE | 2016-08-23 00:50 | DIS ---
[address] [address] DISCHARGE SUMMARY PATIENT: REBECCA EDWARDS : 1945 MR#: [id number] ADMIT: 07/22/2016 JOB ID: [id number] DIS: 08/22/2016 CORRECTED REPORT IDENTIFICATION: The patient is a 71-year-old white female, currently to her , Nate. 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 REASON FOR ADMISSION: Client brought to the [facility] Emergency Department after her found her in a car trying to stab herself in a suicide attempt. SUMMARY OF PRESENT ILLNESS: The patient is a 71-year-old white female with an over 40 year history of depression. Over the past month, she has had several stressors relating to the illness of her , who is her primary caregiver and support. As a result, she had a relatively steady decline with increased depression, culminating in suicidal ideation, a recent suicide attempt, and marked cognitive impairment. At the time of admission, she was only on Prozac and was having multiple symptoms of depression, including poor sleep, interest, guilt, energy, concentration, anhedonia and suicidal ideation. HOSPITAL COURSE: Client was admitted to our unit and was provided with a high-degree of safety through the structure and active adult engagement of our staff. We had her participate in one-to-one unit and group activities focused on improving coping skills, stabilizing mood, and obtaining reality based thinking. She was only minimally able to cooperate and participate for the first two weeks of her stay. She was nearly catatonically depressed. Her medications were changed to include increasing doses of Effexor, decreasing doses of Prozac, as well as Lamictal, Abilify and Klonopin. On this regimen, she showed a gradual and steady improvement in thought organization, mood stability and sleep. At the time of discharge, she was bright, alert, and is requesting discharge. We prepared for her to take her home and She slipped and fell. I asked for an internal medicine consult and did a neurological exam myself On 08/23/2016 a.m.. Both the internal medicine doctor and myself could not find any specific neurological Impairment. She had a physical therapy reevaluation this morning prior to discharge. Physical therapy recommended that her be with her at all transitions from bed to standing or from standing to bathroom. They also recommended in-home rehabilitation services be pursued. MENTAL STATUS EXAMINATION: Client neatly dressed, calm and pleasant. She spoke in a clear and articulate manner. Her mood was good. Her affect was bright. Behavior calm. Thought process logical and goal oriented. Thought content: Client future planning, how to take care of herself. Denies suicidal ideation or psychotic symptoms. She showed no evidence of loose associations, paranoia or thought disorganization. She denied suicidal ideation, plan or intent, and detailed a reasonable safety plan to me. Client alert and oriented to person, place and date. Immediate, short and long-term memory intact. Insight and judgment remain impaired, but are markedly improved. Impulse control, reality testing and competence all appear to be at baseline. ACTIVITY AND DIET: No restrictions. FOLLOWUP APPOINTMENT: Client to follow up with Dr. Veronica Agustin August 31, 2016, 8:35 a.m., at [place]. DISCHARGE MEDICATIONS: 1. Amantadine 100 twice a day. 2. Klonopin 1 twice a day. 3. Benadryl 25 h.s. 4. Melatonin 5 h.s. 5. Pravastatin 20 daily. 6. Albuterol nebulizer q.4 h. as needed. 7. Abilify 10 daily. 8. Lamictal 200 daily. 9. Venlafaxine XL 225 mg daily. PROGNOSIS: Fair. ADDITIONAL INFORMATION Patient had been scheduled for discharge on 08/22/2016. As she was preparing to leave the unit, she fell and hit her head. We obtained an internal medicine consult called by Dr. Brooks. Client had a CT of the head and C-spine without contrast as well as a chest x-ray. I re-evaluated the client this morning. She had some gait instability, but this was consistent with her past history. She showed no new neurological deficits and was in no acute distress. We had a physical therapy consult. They recommended that home health therapy be requested due to potential fall risk at home. Physical Therapy has recommended that her be there with her for all transfers until they can get the home health therapy set up through her primary care physician. At this time, the CT of the head has not returned with a summary; however, due to the client' s current stable state, I believe discharge to home at this time is appropriate. I will follow up with the CT in the next 24 hours and contact client if there is any trouble. We will discharge the patient to home with followup per previous discharge summary. Addenda added by ANDER 08/24/16 at 7:34am [facility]
--- NOTE | 2016-08-23 06:22 | NUR ---
nursing, nights, 11-7 s/o- has appeared to sleep after 2330 during q 15 minute assessments. a- no apparent distress. ice to head during evening for good control of swelling. Pt requested that ice on and off every 20 minutes to be discontinued at 2300. Q4 neuro checks performed throughout the shift without change from baseline. 1:1 sitter throughout the night. p- monitor behavior/emotional state, quality, times and amount of sleep, use and effect of medication Addendum: 08/23/16 at 0707 by BAKARI LEWIS RN [id number] Pt up to bathroom with SBA and FWW. Zero neuro change from baseline appreciated. Zero nausea.
[2016-08-23] MEDS: ARIPiprazole 10 mg Tablet PO SCH (08:02)
[2016-08-23] MEDS: Venlafaxine XR 75 mg ER24 Capsule PO SCH (08:03)
[2016-08-23] MEDS: lamoTRIgine 100 mg Tablet PO SCH (08:03)
--- NOTE | 2016-08-23 08:26 | NUR ---
Nursing: At 0800, Roma was sitting in bed, alert, oriented, pleasant. She did coplain of head and neck pain. Was given PRN Tylenol 650 mg for pain at 0800. Pain assessment at 0845 is "no effect so far". Ice pack was reapplied. VS within usual range. Roma rates depression at 'low', denies anxiety and suicidal ideation. Pt is anticipating discharge today. This morning, there is no palpable swelling noted. Area is tender to touch with one small area about 1 cm contusion. Message left with physical therapy about projected time for hospitalist ordered PT consult today. Seen by hospitalist team. P: Continue to assess pt for possible discharge.
[2016-08-23 08:53] VITALS: BP 116/65; PULSE 75; RESP 16
[2016-08-23 10:08] VITALS: PULSE 72; RESP 18; O2SAT 95
[2016-08-23] MEDS: Albuterol 2.5 mg/3 mL Inhalation Solution NEB SCH (10:08)
--- NOTE | 2016-08-23 11:29 | NUR ---
Nursing. Discharge Roma gathered belongings and was escorted off the unit by staff to the car where her was waiting. She was able to ambulate. HAd a gait belt on at the time she left the unit.She was smiling. Took all discharge paperwork with her including prescriptions.
--- NOTE | 2016-08-23 13:01 | PCM.CHPMED ---
Subjective Date of Service: Aug 23, 2016 Provider requesting consult: Peter Campa MD Primary Physician: Admitting Physician: Brando Bliss DO Primary Care Physician: Veronica Agustin MD Attending Physician: Brando Bliss DO Chief Complaint: Chief Complaint: 1. Ground Level Fall 2. Head Contusion History of Present Illness: This is a 71-year-old female who was admitted to the mental health unit on 07/22 for depression and suicidal ideation. She was being discharged yesterday and when she was walking down the ram she fell backwards and hit her head. She has a fairly long history of gait instability and tremor, she walks with a walker. She states that she is starting to show signs of Parkinson's Disease. She complains of some head tightness. Pain is controlled with tylenol. She has experienced no change in her ability to ambulate and perform activities of daily living since her fall yesterday. Review of Systems: Head: Abnormal (bump) ENT: Denies: Ear Pain Neck: Denies: Pain Cardiovascular: Denies: Rapid Heart Rate Respiratory: Denies: Cough Gastrointestinal: Denies: Abdominal Pain Neurological: Reports: Difficulty Walking, Tremors Psychologic: Reports: Depression Hematologic: Reports: Bruising (superior right parietal region of scalp) PMH Past Medical History osteoarthritis asthma COPD gait instability and tremors depression and anxiety Allergies: Coded Allergies: shellfish derived (Verified Allergy, Severe, anaphylaxis, 07/22/16) trifluoperazine (Verified Allergy, Severe, 05/05/09) Sulfa (Sulfonamide Antibiotics) (Verified Adverse Reaction, Mild, sick to stomach, 07/22/16) Social History Hx Alcohol Use: Yes (30 years ago )Hx Substance Use: NoHx Tobacco Use: No Exam Vital Signs Vital Sign - Last Date Time Temp Pulse Resp B/P Pulse Ox O2 Delivery O2 Flow Rate FiO2 08/23/16 10:08 72 18 95 Room Air 08/23/16 08:53 36.3 116/65 General: Alert, Oriented X3, Cooperative Head: Skull Deformity, Tenderness (superior, posterior right parietal region of scalp) Nose: Mucous Membr Moist/Shaniko Mouth: Mouth Normal, Mucous Membr Moist/Shaniko Neck: Supple Chest & Lungs: Chest Wall Normal, Auscultation (clear) Cardiovascular: Regular Rate/Rhythm, No Murmurs/Rubs/Gallops Musculoskeletal: Unremarkable Neurological: Grossly Neurologically Intact, Other (tremor) Assessment & Plan Assessment 1. Ground-level fall with head trauma, acute CT of head and C-spine without contrast showed no evidence of fracture. neuro checks every 4 hours have been normal per nursing Physical therapy recommends discharge home with home health physical therapy. Recommend outpatient neurology consultation 2. Chronic gait instability with tremor, present on admission Recommend outpatient neurology consultation Physical therapy recommends 24-hour supervised care with standby assist when mobilizing along with home health physical therapy. 3. Psychiatric issues, present on admission Further recommendations per psychiatry. The medical consult team will sign off at this point. Thank you for requesting advisement for this interesting case. Problems: Pain Evaluation: Adequate Pain Control GI Prophylaxis: Not indicated Attending Statement The patient was seen and examined together with Dr. Bennett on 08/23/2016 and I agree with the history, exam and plan as outlined in the note above. Елена Bennett DO Aug 23, 2016 13:01 Justin Irby MD Aug 24, 2016 12:54
--- NOTE | 2016-08-23 15:39 | NUR ---
Manager Skilled/Counselor: S: "I'm going home today." O: Patient slept 6.5+ hours last night as per staff. She denies S/I and H/I. She denies auditory and visual hallucinations. Out-patient appointment: Dr. Veronica Agustin, 08/31/16 at 8:35am. A: Patient is cooperative, hopeful, flat affect, pleasant. P: Follow care plan, coordinate out-patient providers.
--- NOTE | 2016-08-24 10:27 | PROG NOTE ---
[address] [address] PROGRESS NOTE PATIENT: REBECCA EDWARDS : 1945 MR#: [id number] ADMIT: 07/22/2016 JOB ID: [id number] DATE: 08/23/2016 I met with the patient for a 30 minute evaluation as part of a discharge process. The patient reported a remission of depressive symptoms and is requesting discharge. She denied medication side effects and reported sleeping well. MENTAL STATUS: Client neatly dressed. Bright affect. Thought process logical and goal oriented. Thought content: Client denies suicidal ideation, plan or intent and is requesting discharge. Judgment, insight and reality testing markedly improved. 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 PLAN: Client was scheduled to be discharged today. She had a fall. She will be kept overnight and discharged July 23, 2016.
--- NOTE | 2016-09-01 11:17 | DRSVH ---
CORRECTED ACCESSION/PLACER NUMBER ON 08/23/16 PROCEDURE: CT BRAIN WITHOUT CONTRAST ([id number]) INDICATIONS: GROUND LEVEL FALL, HEAD/NECK TRAUMA TECHNIQUE: Noncontrast 4.5 mm thick angled axial sections acquired from the foramen magnum to the vertex, with c oronal reformats. COMPARISON: None. FINDINGS: Image quality: Excellent. CSF spaces: Basal cisterns are patent. There is mild cerebral volume loss, with resultant ventricul ar and sulcal prominence. There are bilateral frontal extra-axial fluid collections isodense to CSF likely representing chronic hygromas. Brain: No intracranial hemorrhage, mass, or mass effect. The perez-white matter junction appears pre served. There is intracranial internal carotid artery atherosclerosis. Skull and face: There is soft tissue swelling with a subgaleal scalp hematoma in the posterior verte x. Calvarium and visualized facial bones appear intact. Sinuses: Visualized sinuses and mastoids are clear. IMPRESSION: 1. No acute intracranial abnormality. 2. Probable bilateral frontal hygromas. 3. Posterior scalp subgaleal hematoma at the vertex without evidence of fractures. Dictated by: Lars Romeo M.D. on 08/22/2016 at 19:41 Approved by: Lars Romeo M.D. on 08/22/2016 at 19:44
--- NOTE | 2016-09-01 11:17 | DRSVH ---
CORRECTED ACCOUNT & ACCESSION/PLACER NUMBER ON 08/23/16 PROCEDURE: CT CERVICAL SPINE WITHOUT CONTRAST ([id number]) INDICATIONS: FALL, HEAD AND NECK TRAUMA TECHNIQUE: Noncontrast 3 mm thick sections acquired from the skull base to the T4 level. Sagittal and coronal r eformats were then constructed. For radiation dose reduction, the following was used: automated exp osure control, adjustment of mA and/or kV according to patient size. COMPARISON: None. FINDINGS: Image quality: There is motion artifact limiting evaluation. Bones: No fractures or dislocations. There is minimal retrolisthesis at C2-C3 and C3-4. Minimal an terolisthesis is demonstrated at C5-C6. There is mild multilevel disc space narrowing and facet arth ropathy in the cervical spine. Visualized superior ribs are intact. Soft tissues: Prevertebral soft tissues are normal in thickness. No paravertebral hematomas. No ap ical pneumothoraces. IMPRESSION: 1. No definite fracture. 2. Minimal multilevel spondylolisthesis likely degenerative in etiology. Dictated by: Lars Romeo M.D. on 08/22/2016 at 19:55 Approved by: Lars Romeo M.D. on 08/22/2016 at 19:57
== END 2016-08-23 16:00 | disposition home or self-care (01) | DRG 885 ==
LOC: SED 08:10 → MHC 12:28
PROVIDERS: ADMIT Psychiatry & Neurology Psychiatry; ATTEND Psychiatry & Neurology Psychiatry
DX: F33.3 Major depressive disorder, recurrent, severe with psychotic symptoms (principal); R45.851 Suicidal ideations; J45.909 Unspecified asthma, uncomplicated; J44.9 Chronic obstructive pulmonary disease, unspecified; M19.90 Unspecified osteoarthritis, unspecified site; S00.03XA Contusion of scalp, initial encounter; W18.30XA Fall on same level, unspecified, initial encounter; Y92.232 Corridor of hospital as the place of occurrence of the external cause; R26.81 Unsteadiness on feet; R25.1 Tremor, unspecified